=== PATIENT | female | born 1955 | race Caucasian/White ===

== ENCOUNTER → 2017-01-12 | Outpatient (CLI) | payer OTHER ==
[~2017-01-12] MED LIST: CHOL100010 PO; CLON0.5T3 PO; DICL75TA2 PO; FLUO20CA35 PO; FLX10 PO; FRS/40 PO; GLC/500 PO; MECL1TAB42 PO; MOME50SP5; MONT1TAB3 PO; NXM/40 PO; OMEG10007 PO; POTA-327 PO; RANI300T2 PO; RXC5 PO; SUMA25TA12 PO; TIOT1AER INH; TRAM-10 PO; TRAZ100T29 PO
--- NOTE | 2017-01-12 13:55 | DIAGNOSTIC IMAGING REPORT ---
VIDEO SWALLOW HISTORY: DYSPHAGIA, BURPING TECHNIQUE: Video fluoroscopic evaluation of swallowing was performed in the AP and lateral projections by the speech pathology staff. The patient is fed nectar-thick and thin liquid barium, a barium coated wafer, and barium pudding. FLUOROSCOPY TIME: 3.1 minutes. A cine loop submitted. COMPARISON STUDY: None. FINDINGS: There is normal hyoid excursion and epiglottic deflection. No significant penetration or aspiration identified. Swallowing function is within normal limits. However, there is moderate esophageal dysmotility resulting in retrograde flow of barium through the upper esophageal sphincter. IMPRESSION: 1. No aspiration identified. However, there is moderate esophageal dysmotility resulting in an episode of retrograde flow of barium through the upper esophageal sphincter. 2. Please see the speech pathologist report for detailed findings and recommendations. Electronically signed by: Max Fine M.D. 01/12/2017 1:54 PM Dictated Date/Time: 01/12/2017 1:51 PM
--- NOTE | 2017-01-13 15:28 | SWALLOWING EVALUATION ---
HISTORY: This 61 year old woman was referred for a video swallow study at [facility] in order to rule out aspiration and identify the safest consistencies for optimal oral intake. The patient is reporting ongoing coughing, gagging, and at times vomiting or expectorating food and liquids. She reports this has been occurring for ~ a month and a half. It takes her a long time to eat and she eats small frequent meals. She also reports excessing burping while eating. PMH is significant for: DM2, RA, blood clots, ulcers, asthma, COPD, GERD, bipolar depression, migraines, and obesity. She denies weight loss, pneumonia, or medication changes, but had a consistent ongoing dry cough. She reports this as occurring all the time and feels it may be from her saliva. Current diet is described as mainly full liquids with some solids as tolerated such as mashed potatoes. PROCEDURE: The patient was seen in the Radiology Department of [facility] for the VFSS. Cursory examination of the oral cavity revealed natural dentition in good condition. Movement of the articulators was wnl. The patient was seated upright on a stool and was viewed in both the Anterior-Posterior (A-P) and Lateral planes. Volitional phonation exercises completed in the A-P plane revealed bilateral vocal fold movement and vocal intensity was judged to be wnl. In the lateral plane, the patient was given the following boluses: 1 tsp. thin liquid barium x 2, single swallow thin liquid barium self-presented from a cup, serial swallows of thin liquid barium self-presented via straw, 1 tsp. nectar-thick liquid barium, and 1 tsp. barium pudding. The club cracker with barium paste that is typically administered for this study was deferred due to the patient having excessive gagging with increased texture. The patient was then repositioned into the A-P plane and given the following boluses: 1 teaspoon barium pudding and sup sips of thin liquid barium. RESULTS: Oral Stage: Lip closure was adequate as there was no anterior loss. The patient was able to maintain a cohesive liquid bolus upon command without lateral or posterior escape. Mastication was slow. Lingual motion for bolus transport was disorganized. There was trace retention lining the tongue and palate after the swallow. The initiation of the pharyngeal swallow was delayed, and triggered when the bolus head reached the pyriforms. Pharyngeal Stage: Soft palate elevation was complete. Laryngeal elevation revealed complete superior movement of the thyroid cartilage with complete approximation of the arytenoids to the epiglottic base. Anterior hyoid excursion and epiglottic deflection was also complete. Laryngeal vestibular closure was complete. The pharyngeal stripping wave was present and complete. Pharyngeal contraction was also complete. The opening to the pharyngoesophageal segment (PES) was partially reduced, with partial distention and duration of the opening. Tongue base retraction was reduced, with a trace column of contrast being located between the tongue base and pharyngeal wall during the swallow. There was trace retention located along the tongue base, in the valleculae, and pyriforms after the swallow. There was no evidence of laryngeal penetration or aspiration during this study. There were only trace amounts of retention in the pharynx after the swallow was complete as well. Esophageal stage: There was significant mid-distal esophageal retention with retrograde flow through the PES. She required use of a liquid wash multiple times and this was not effective to fully clear the barium. While in the lateral plane, after fluro was turned off, the patient would gag, cough, and expectorate small amounts of barium. This occurred after each presentation but worsened with items of increased viscosity. These finding are suspicious for esophageal dysfunction (to include dysmotility, reflux). SUMMARY/RECOMMENDATIONS: This patient presents mild jovi-pharyngeal dysphagia. She presents with s/s of esophageal dysfunction, which places her at risk for aspiration. The following is recommended: 1. Full liquid diet. 2. Aspiration and GERD precautions, avoid straws. Fully upright for all p.o. intake and for 30-60 minutes after meals. HOB elevated to 30 degrees at all times to include while asleep. 3. Safe swallow strategies: Small sips. Rest breaks. Small frequent meals. 4. Follow up with GI due to esophageal dysfunction. Patient reports that she has an appointment for endoscopy within the next month. Modify reflux medications as needed/appropriate. A summary of the results and recommendations was discussed with the patient immediately following the study with verbal understanding. She is already eating small frequent meals and avoids straw use. She takes reflux medications and feels as though these assist. The patient reported she felt the most comfortable with drinking liquids and that these caused her the least amount of difficulty. She was educated that should these symptoms worsen prior to her endoscopy, it would be prudent for her to go to the ED for immediate assessment and assistance. She was in agreement. Thank you for referral of this patient. Please contact me at if any additional information is needed.
== END | disposition home or self-care (01) ==
LOC: C.RAD 12:21
PROVIDERS: ATTEND Nurse Practitioner Family
DX: R13.10 Dysphagia, unspecified (principal); R14.2 Eructation; K22.4 Dyskinesia of esophagus

== ENCOUNTER → 2017-04-25 | Outpatient (CLI) | payer OTHER ==
--- NOTE | 2017-04-25 18:08 | DIAGNOSTIC IMAGING REPORT ---
KUB HISTORY: Generalized abdominal pain. COMPARISON: None. FINDINGS: The bowel gas pattern is unremarkable. There are no dilated loops of small bowel to suggest an obstruction. No renal calculi. No ureteral calculi. No pneumoperitoneum or pneumatosis. L4-S1 posterior decompression and fusion with pedicle screws and rods. The hardware is intact. Round calcifications in the deep pelvis are nonspecific but likely represent phleboliths. IMPRESSION: No renal or ureteral stones. No evidence for bowel obstruction. Electronically signed by: Max Fine M.D. 04/25/2017 6:07 PM Dictated Date/Time: 04/25/2017 6:05 PM
== END | disposition home or self-care (01) ==
LOC: C.RAD 16:31
PROVIDERS: ATTEND Nurse Practitioner Family
DX: R10.84 Generalized abdominal pain (principal); R19.7 Diarrhea, unspecified

== ENCOUNTER → 2017-04-28 | Outpatient (CLI) | payer OTHER ==
[~2017-04-28] MED LIST changes: +OPTIRAY 320 IV PRN
== END | disposition home or self-care (01) ==
LOC: C.CTS 10:35
PROVIDERS: ATTEND Nurse Practitioner Family
DX: R10.84 Generalized abdominal pain (principal); R10.32 Left lower quadrant pain; R19.7 Diarrhea, unspecified

== ENCOUNTER → 2017-05-04 | Outpatient (CLI) | payer OTHER ==
--- NOTE | 2017-05-04 10:11 | DIAGNOSTIC IMAGING REPORT ---
CT OF THE ABDOMEN AND PELVIS WITH CONTRAST CLINICAL HISTORY: Left lower quadrant abdominal pain. Diarrhea. COMPARISON STUDY: KUB April 25, 2017. TECHNIQUE: Following IV administration of 92 mL of Optiray-320, axial images of the abdomen and pelvis were obtained from the lung bases to the proximal femurs. Images were reviewed in the axial, sagittal, and coronal planes. IV contrast was administered without complication. A dose lowering technique was utilized adhering to the principles of ALARA. Oral contrast was administered. CT DOSE: 1423.69 mGy.cm FINDINGS: Lung bases are clear. There is probable fatty infiltration of the liver. The spleen, adrenal glands, kidneys and pancreas are normal. There is no biliary or pancreatic ductal dilatation. No peripancreatic infiltration. The gallbladder is surgically absent. There is no evidence for a bowel obstruction. This extensive diverticulosis of the descending colon and sigmoid colon. There is probable minimal infiltration along the posterior aspect of the distal descending colon with mild colonic wall thickening. The findings suggest mild acute diverticulitis. There is no free air or abscess. No lymphadenopathy is present. No suspicious skeletal lesions are present. There are postoperative findings within the lumbosacral spine. IMPRESSION: 1. Extensive diverticulosis of the descending colon and sigmoid colon with minimal infiltration along the posterior aspect of the distal descending colon which suggests mild acute diverticulitis. No free air or abscess. 2. Fatty infiltration of the liver. 3. No biliary ductal dilatation status post cholecystectomy. Electronically signed by: Niitn Orona M.D. 05/04/2017 10:09 AM Dictated Date/Time: 05/04/2017 9:58 AM
== END | disposition home or self-care (01) ==
LOC: C.CTS 09:25
PROVIDERS: ATTEND Nurse Practitioner Family
DX: R10.84 Generalized abdominal pain (principal); R10.32 Left lower quadrant pain; R19.7 Diarrhea, unspecified; Z98.890 Other specified postprocedural states; K57.30 Diverticulosis of large intestine without perforation or abscess without bleeding; K76.0 Fatty (change of) liver, not elsewhere classified

== ENCOUNTER 2017-11-07 08:38 | Emergency (ER) | payer OTHER ==
[~2017-11-07] VITALS: Ht 154.9 cm; Wt 91.0 kg
[~2017-11-07 08:38] MED LIST changes: -OPTIRAY 320 IV PRN
[2017-11-07 08:42] VITALS: TEMP 36.7; Ht 154.9 cm; Wt 91.0 kg
[2017-11-07] MEDS ORDERED: PSEUDOEPHEDRINE HCL 30 MG TAB PO STA (08:58)
[2017-11-07] MEDS ORDERED: SODIUM CHLORIDE 0.9% 1000ML 1,000 ML IV STA (08:58)
[2017-11-07] MEDS ORDERED: ONDANSETRON INJ 2 MG/ML 2 ML VIAL IV STA (08:58)
[2017-11-07] MEDS ORDERED: ALBUT/IPRATROP 3MG/0.5MG NEB 3 ML VIAL INH STA (08:58)
[2017-11-07] MEDS ORDERED: KETOROLAC TROMETHAMINE 30 MG/ML VIAL IV STA (08:58)
[2017-11-07] MEDS ORDERED: BENZONATATE 100MG CAP PO ONE (09:00)
[2017-11-07 09:35] LABS: INFLUENZA B ANTIGEN POS for Influ B (NEG)
[2017-11-07 09:35] LABS: BASO % 0.4 %; BASO ABS # 0.02 K/uL (0-0.2); EOS % 1.6 %; EOS ABS # 0.08 K/uL (0-0.5); HEMATOCRIT 38.4 % (37-47); HEMOGLOBIN 13.1 g/dL (12.0-16.0); IG# 0.01 K/uL (0.00-0.02); LYMPH ABS # 2.16 K/uL (1.2-3.4); MEAN CELL VOLUME 87.7 fL (80-100); MEAN CORPUSCULAR HEMOGLOBIN 29.9 pg (25-34); MEAN CORPUSCULAR HGB CONC 34.1 g/dl (32-36); MEAN PLATELET VOLUME 9.2 fL (7.4-10.4); MONO % 9.8 %; MONO ABS # 0.48 K/uL (0.11-0.59); NEUT ABS # 2.16 K/uL (1.4-6.5); PLATELET COUNT 214 K/uL (130-400); RED CELL DISTRIBUTION WIDTH CV 15.4 % (11.5-14.5); RED CELL DISTRIBUTION WIDTH SD 49.9 fL (36.4-46.3); WHITE BLOOD COUNT 4.91 K/uL (4.8-10.8)
[2017-11-07 09:43] LABS: INR 0.9 (0.9-1.1); PTT PATIENT 29.3 SECONDS (21.0-31.0)
[2017-11-07 09:58] LABS: ALBUMIN 3.6 gm/dl (3.4-5.0); CALCIUM 8.7 mg/dl (8.5-10.1); CREATININE 0.77 mg/dl (0.60-1.20); POTASSIUM 3.5 mmol/L (3.5-5.1)
--- NOTE | 2017-11-07 10:06 | DIAGNOSTIC IMAGING REPORT ---
CHEST 2 VIEWS ROUTINE HISTORY: 62 years-old Female EVALUATE RESPIRATORY DISTRESS.DYSPNEA acute respiratory distress COMPARISON: Chest radiographs 05/10/2016 TECHNIQUE: PA and lateral views of the chest FINDINGS: Cardiomediastinal and hilar silhouettes are within normal limits. There is no pneumothorax, pleural effusion, focal airspace consolidation or overt pulmonary edema. The bones of the chest appear grossly intact. Orthopedic hardware of the lower cervical spine is noted. Degenerative changes are noted about the shoulders and spine. IMPRESSION: No acute process. The above report was generated using voice recognition software. It may contain grammatical, syntax or spelling errors. Electronically signed by: Jaylen Wharton M.D. 11/07/2017 10:05 AM Dictated Date/Time: 11/07/2017 10:03 AM
[2017-11-07 10:09] LABS: CKMB 0.6 ng/ml (0.5-3.6); TOTAL PROTEIN 7.3 gm/dl (6.4-8.2)
[2017-11-07] MEDS ORDERED: CHOL100041 PO (10:20)
[2017-11-07] MEDS ORDERED: MOME6000 (10:20)
[2017-11-07] MEDS ORDERED: POTA10TA PO (10:20)
[2017-11-07] MEDS ORDERED: BACL10TA PO (10:21)
[2017-11-07] MEDS ORDERED: MIRT15TA PO (10:21)
[2017-11-07] MEDS ORDERED: OSELTAMIVIR PHOSPHATE 75 MG CAP PO STA (11:42)
[2017-11-07] MEDS ORDERED: OSEL45CA PO (11:46)
[2017-11-07] MEDS ORDERED: BENZ100C18 PO (11:46)
[2017-11-07] MEDS ORDERED: VNTHFA/IN INH (11:46)
[2017-11-07 11:57] VITALS: BP 160/94; PULSE 89; O2SAT 94
--- NOTE | 2017-11-07 15:14 | EMERGENCY ROOM VISIT NOTE ---
ED Visit Note First contact with patient: 08:48 Chief Complaint: Flulike symptoms. History of Present Illness: Ms. Lindquist is a 62-year-old white female who ambulates into the ED accompanied by a male friend with complaints of flulike symptoms. Historically patient reports she has a history of asthma, bronchitis and lower extremity DVTs. She does report she had an influenza vaccination this year. Patient reports her symptoms started approximately 4 days ago with a productive cough of clear sputum that is intermittently yellow in color. She then reports she started experiencing a bifrontal headache, bilateral lateral rib pain, nasal congestion, body aches and generalized fatigue. Over the last 3 days her symptoms have been constant and she feels like they are getting worse. Currently she describes her bifrontal headache initially as a burning sensation and now it is a throbbing sensation. She rates her discomfort 5/10. Her pain is nonradiating. Her pain worsens with cough. She has not identified any alleviating factors related to the pain. She has been using axok-lhx-xmcqczl medications without relief of her discomfort. Additionally associated symptoms was bilateral ear pain that has subsequently resolved, intermittent wheezing predominantly with cough, exertional dyspnea, left lower leg cramping, decreased appetite and sore throat. She denies dizziness, lightheadedness, hearing changes, ear drainage, voice changes, painful talking, drooling, inability to swallow, neck pain/stiffness, hemoptysis, anterior chest pain, palpitations, abdominal pain, nausea, vomiting , recent travel/inactivity/surgery, extremity weakness/numbness/tingling. Review of Systems: As noted above in history of present illness. All body systems were reviewed and found to be negative as noted above. Past Medical History: As previously noted, diabetes, gastric ulcers, multiple orthopedic surgeries, D&C, hysterectomy. Current Medications: Medications Dose Route/Sig Max Daily Dose Days Date Category Dose Instructions Remeron (Mirtazapine) 15 Mg Tab 15 Mg PO HS 11/07/17 Reported Lioresal (Baclofen) 10 Mg Tab 10 Mg PO TID PRN 11/07/17 Reported Mometasone Furoate (Mometasone Furoate (Nasal)) 50 Mcg/Act Spr 1-2 Sprays NA PRN 11/07/17 Reported D 1000 (Cholecalciferol) 1,000 Unit Cap 1,000 Units PO QAM 11/07/17 Reported K-Tabs (Potassium Chloride) 10 Meq Tab 10 Meq PO QAM 11/07/17 Reported Oxycodone HCl 5 Mg Tab 5-10 Mg PO Q4H PRN 05/22/16 Rx Stiolto Respimat 2.5-2.5 Mcg/Act (Tiotropium Barre-Olodaterol) 1 Aer Aer 1 [place] INH BID PRN 05/10/16 Reported [place]-3 (Fish Oil) 1 Ea Cap 1 Cap PO QAM 05/10/16 Reported Ultram (Tramadol HCl) 50 Mg Tab 50 Mg PO Q8H PRN 05/10/16 Reported Meclizine Hcl 25 Mg Tab 1 Tab PO UD PRN 10 05/10/16 Reported TAKES HS ALWAYS Prozac (Fluoxetine HCl) 20 Mg Cap 20 Mg PO QAM 05/10/16 Reported Trazodone (Trazodone HCl) 100 Mg Tab 100 Mg PO HS 05/10/16 Reported Klonopin (Clonazepam) 0.5 Mg Tab 0.5 Mg PO BID 05/10/16 Reported Nexium (Esomeprazole Magnesium) 40 Mg Capcr 40 Mg PO QAM 05/10/16 Reported Glucophage (Metformin Hcl) 500 Mg Tab 500 Mg PO BID 05/16/14 Reported Singulair (Montelukast Sodium) 10 Mg Tab 10 Mg PO QPM 05/16/14 Reported Zantac (Ranitidine HCl) 300 Mg Tab 300 Mg PO QPM 11/01/11 Reported Voltaren (Diclofenac Sodium) 75 Mg Tab 75 Mg PO BID 11/01/11 Reported TAKE WITH FOOD Lasix (Furosemide) 40 Mg Tab 40 Mg PO Q2D 11/01/11 Reported AM Imitrex (Sumatriptan Succinate) 25 Mg Tab 2 Tablets PO AT ONSET OF MIGRAINE 11/01/11 Reported Allergies to Medications: Cephalosporin, fentanyl, methylprednisone Social History: Patient is not employed; she feels safe in her home environment ; she denies tobacco and alcohol use. Physical Examination: Vital Signs: Date Time Temp Pulse Resp B/P (MAP) Pulse Ox O2 Delivery O2 Flow Rate FiO2 11/07/17 11:57 89 24 160/94 94 11/07/17 11:31 160/94 11/07/17 11:30 86 21 93 Room Air 11/07/17 11:01 123/89 11/07/17 11:00 82 20 90 Room Air 11/07/17 10:55 82 26 150/93 97 Room Air 11/07/17 09:44 92 18 129/82 96 Room Air 11/07/17 09:25 81 11/07/17 08:42 36.7 99 18 137/99 96 Room Air GENERAL: 62-year-old female in mild to moderate distress due to symptoms, nontoxic-appearing, afebrile and hemodynamically stable. NEUROLOGICAL: Awake, alert and oriented to person, place and time. Answering questions appropriately and following commands. Normal gait. Good hand eye coordination. SKIN: Warm, dry and pink. No soft tissue eruptions or trauma noted. HEENT: Atraumatic and normocephalic. No erythema or tenderness over the frontal or maxillary sinuses. External ears are nontender. Auditory canals are pink and patent. Tympanic membranes are not erythematous or edematous. PERRLA. Sclera white and conjunctiva pink without drainage. No drainage from naris with audible congestion. Oral cavity moist and pink. Uvula is midline and no abscesses are seen. Pharynx is moderately erythematous and mildly edematous. No tonsillar hypertrophy or exudates. Speech normal and clear. No lymphadenopathy. Trachea midline. No jugular venous distention. No laryngeal tenderness. No carotid bruits. BACK: No tenderness over the bony spine. No nuchal rigidity or meningismus. Full range of motion of the cervical spine. No CVA tenderness. THORAX: Lungs sounds are clear but decreased in all lung hodges bilaterally to auscultation and equal bilaterally with symmetrical chest wall. No wheezing, rales or rhonchi. Mild tenderness over the bilateral ribs without bony deformity, bony crepitus, swelling, ecchymosis or subcutaneous air. No increased respiratory effort or rate. HEART: Regular rate and rhythm. No gallops, rubs or murmurs are appreciated. PMI is not displaced. No lifts, heaves or thrills. ABDOMEN: Obese, soft and nontender. Positive bowel sounds in all quadrants. No guarding, rigidity or organomegaly. EXTREMITIES: Moves all extremities well on command and with purpose. All distal neurovascular statuses are intact and equal bilaterally. Mild bilateral dependent edema. No calf tenderness or cords. ED Course: Patient is assessed as noted above. Patient's medication list was reviewed. Laboratory Testing: Test 11/07/17 09:03 11/07/17 09:16 11/07/17 09:20 11/07/17 10:30 Range/Units Influenza Type A Antigen Neg for Influ A NEG Influenza Type B Antigen POS for Influ B NEG White Blood Count 4.91 4.8-10.8 K/uL Red Blood Count 4.38 4.2-5.4 M/uL Hemoglobin 13.1 12.0-16.0 g/dL Hematocrit 38.4 37-47 % Mean Corpuscular Volume 87.7 80-100 fL Mean Corpuscular Hemoglobin 29.9 25-34 pg Mean Corpuscular Hemoglobin Concent 34.1 32-36 g/dl Platelet Count 214 130-400 K/uL Mean Platelet Volume 9.2 7.4-10.4 fL Neutrophils (%) (Auto) 44.0 % Lymphocytes (%) (Auto) 44.0 % Monocytes (%) (Auto) 9.8 % Eosinophils (%) (Auto) 1.6 % Basophils (%) (Auto) 0.4 % Neutrophils # (Auto) 2.16 1.4-6.5 K/uL Lymphocytes # (Auto) 2.16 1.2-3.4 K/uL Monocytes # (Auto) 0.48 0.11-0.59 K/uL Eosinophils # (Auto) 0.08 0-0.5 K/uL Basophils # (Auto) 0.02 0-0.2 K/uL RDW Standard Deviation 49.9 36.4-46.3 fL RDW Coefficient of Variation 15.4 11.5-14.5 % Immature Granulocyte % (Auto) 0.2 % Immature Granulocyte # (Auto) 0.01 0.00-0.02 K/uL Prothrombin Time 9.6 9.0-12.0 SECONDS Prothromb Time International Ratio 0.9 0.9-1.1 Activated Partial Thromboplast Time 29.3 21.0-31.0 SECONDS Partial Thromboplastin Ratio 1.1 D-Dimer 390 0-500 ug/L FEU Sodium Level 139 136-145 mmol/L Potassium Level 3.5 3.5-5.1 mmol/L Chloride Level 109 98-107 mmol/L Carbon Dioxide Level 22 21-32 mmol/L Anion Gap 8.0 3-11 mmol/L Blood Urea Nitrogen 9 7-18 mg/dl Creatinine 0.77 0.60-1.20 mg/dl Est Creatinine Clear Calc Drug Dose 78.8 ml/min Estimated GFR () 96.6 Estimated GFR (Non- 83.3 BUN/Creatinine Ratio 11.2 10-20 Random Glucose 118 70-99 mg/dl Calcium Level 8.7 8.5-10.1 mg/dl Total Bilirubin 0.3 0.2-1 mg/dl Aspartate Amino Transf (AST/SGOT) 12 15-37 U/L Alanine Aminotransferase (ALT/SGPT) 19 12-78 U/L Alkaline Phosphatase 85 45-117 U/L Total Creatine Kinase 71 26-192 U/L Creatine Kinase MB 0.6 0.5-3.6 ng/ml Creatine Kinase MB Ratio 0.8 0-3.0 Troponin I < 0.015 0-0.045 ng/ml Total Protein 7.3 6.4-8.2 gm/dl Albumin 3.6 3.4-5.0 gm/dl Globulin 3.7 2.5-4.0 gm/dl Albumin/Globulin Ratio 1.0 0.9-2 Bedside Troponin I < 0.030 0-0.045 ng/ml Urine Color YELLOW Urine Appearance CLEAR CLEAR Urine pH 7.0 4.5-7.5 Urine Specific [place] 1.010 1.000-1.030 Urine Protein NEG NEG Urine Glucose (UA) NEG NEG Urine Ketones NEG NEG Urine Occult Blood NEG NEG Urine Nitrite NEG NEG Urine Bilirubin NEG NEG Urine Urobilinogen NEG NEG Urine Leukocyte Esterase TRACE NEG Urine WBC (Auto) 1-5 0-5 /hpf Urine RBC (Auto) 0-4 0-4 /hpf Urine Hyaline Casts (Auto) 1-5 0-5 /lpf Urine Epithelial Cells (Auto) 20-30 0-5 /lpf Urine Bacteria (Auto) NEG NEG Group A Streptococcus Screen: Negative. Culture pending. Chest X-Rays: Were read by myself and the radiologist showing no acute infiltrates, effusions or pneumothorax. Normal heart silhouette and bony anatomy. EKG: Was read by myself and reviewed with Dr. Diane; shows normal sinus rhythm with a ventricular rate of 82 bpm. Normal axis, intervals and complexes. Nonspecific T changes. No evidence of acute injury, ischemia or infarction. Medical records were reviewed and there was no additional EKGs on file for comparison. Patient was hydrated with normal saline and received an albuterol/Atrovent nebulizer breathing treatment, 4 mg of Zofran for posttussive nausea, 200 mg of Tessalon Perles by mouth for cough, 60 mg a pseudoephedrine by mouth for congestion, 30 mg of Toradol IV for generalized pain and 75 mg of Tamiflu by mouth for influenza. Patient was reassessed multiple times during her stay in the emergency department. On reevaluation's of her lungs she had improved air movement in all hodges and continue to have no wheezing, rales or rhonchi. Patient's case was reviewed with Dr. Diane; we agreed on diagnostic approach, treatment, disposition and plan. Patient was educated about today's findings and instructed on her treatment plan ; she verbalized understanding and agreement with this plan. Clinical Impression: Influenza B. Decision-Making: Initially my differential diagnosis I considered influenza, pneumonia, pulmonary embolism, acute bronchitis, acute coronary syndrome, pleuritis and other causes. Disposition: Patient discharged home in stable condition accompanied by female friend; prior to departure she was reassessed and subjectively reported she was feeling much better and reported that she was pain-free but was still having her cough. Plan: Patient was prescribed Tamiflu 2 times a day for total of 5 days. Patient was prescribed Tessalon Perles every 6 hours as needed for cough. Patient was prescribed an albuterol inhaler with spacer and encouraged to use 2 puffs every 6 hours for 5 days and as needed for severe coughing episodes, shortness of breath/wheezing. Patient was encouraged to stay well-hydrated, elevate the head of her bed and had a humidifier to her bedroom during sleep. Patient was encouraged to follow-up with her PCP for recheck in 2-3 days. Patient is encouraged to return the ED for worsening cough, coughing up blood, uncontrolled fevers, uncontrolled shortness of breath/wheezing or any new/ concerning symptoms.
== END 2017-11-07 11:57 | disposition home or self-care (01) ==
LOC: C.EDB 08:41
DX: J10.1 Influenza due to other identified influenza virus with other respiratory manifestations (principal); E11.9 Type 2 diabetes mellitus without complications; K25.9 Gastric ulcer, unspecified as acute or chronic, without hemorrhage or perforation; Z88.1 Allergy status to other antibiotic agents; Z88.5 Allergy status to narcotic agent; Z88.8 Allergy status to other drugs, medicaments and biological substances

== ENCOUNTER 2021-08-31 12:05 | Inpatient (IN) ==
[2021-08-31] MEDS ORDERED: HYDROmorphone INJ 0.5 MG/0.5 ML SYR IV PRN (12:49)
[2021-08-31] MEDS ORDERED: SODIUM CHLORIDE 0.9% 1000ML 1,000 ML IV SCH ×2 (13:00→19:32)
[2021-08-31 13:07] LABS: Basophils # (auto) 0.03 K/uL (0-0.2); Basophils % (auto) 0.3 %; Hematocrit (blood only) 29.2 % (37-47); Hemoglobin 9.4 g/dL (12.0-16.0); Immature Granulocytes # (auto) 0.04 K/uL (0.00-0.02); Immature Granulocytes % (auto) 0.4 %; Lymphocytes # (auto) 1.71 K/uL (1.2-3.4); Lymphocytes % (auto) 17.6 %; Mean Corpuscular Hemoglobin 26.9 pg (25-34); Mean Corpuscular Hgb Conc 32.2 g/dL (32-36); Mean Corpuscular Volume 83.7 fL (80-100); Mean Platelet Volume 9.1 fL (7.4-10.4); Monocytes # (auto) 0.77 K/uL (0.11-0.59); Monocytes % (auto) 7.9 %; Neutrophils # (auto) 7.05 K/uL (1.4-6.5); Neutrophils % (auto) 72.8 %; Platelet Count 254 K/uL (130-400); RDW Coefficient of Variation 16.7 % (11.5-14.5); RDW Standard Deviation 50.7 fL (36.4-46.3); Red Blood Count 3.49 M/uL (4.2-5.4)
[2021-08-31 13:17] LABS: Partial Thromboplastin Time 25.4 Seconds (21.0-31.0); Prothrombin Time 9.8 Seconds (9.0-12.0)
[2021-08-31 13:35] LABS: Albumin Level 3.1 gm/dl (3.4-5.0); BUN Creatinine Ratio 14.6 (10-20); Calcium 8.7 mg/dl (8.5-10.1); Creatinine Clr Calc Pharmacy 93.7 ml/min; Est GFR (African American) 98.5 ml/min
[2021-08-31 13:37] LABS: Albumin Globulin Ratio 0.8 (0.9-2); Globulin 3.9 gm/dl (2.5-4.0)
[2021-08-31 13:48] LABS: Bilirubin,Total 0.4 mg/dl (0.2-1)
--- NOTE | 2021-08-31 13:48 | History & Physical Report ---
Date of Service August 31, 2021 Assessment & Plan (1) Tibial plateau fracture, left: Plan: Due to the patient's clinical presentation and imaging she will be admitted to the hospital proceeding as follows: Analgesics will be provided Orthopedics will be consulted for necessary intervention for her left knee fracture. The treating emergency room physician is already discussed with Dr. Jerry Perez who will see the patient in consultation. Further recommendations concerning this fracture will be at the discretion of the orthopedic surgeon We will utilize SCDs for DVT prevention. We will plan on initiating chemical means once surgical intervention is completed. I discussed CODE STATUS with the patient and she notes an event of cardiopulmonary rest to be a level 1 full code (2) Diabetes: Plan: We will get a glycemic consultation as the patient's Metformin will likely need to be held in anticipation of surgery History of Present Illness Chief Complaint: "I recently fell and having difficulty taking care of myself due to severe pain in my left knee" Primary Care Provider: NO PCP This is a 66-year-old female who presented to [facility] on 1225 after suffering a fall. Patient says that she was in [employer] when she tripped on a rug in the store. When the patient fell she struck her head as well as bend her left knee in an awkward position. She said that she did not lose consciousness. Following her fall she did not have any blurred vision or double vision. She also denies any nausea vomiting or abdominal pain. I questioned her about events preceding the fall and she specifically notes she merely tripped on a rug and did not experience any preceding chest pain, shortness of breath, lightheadedness, or syncopal episodes. After suffering a fall in addition to a slight headache the patient noted severe pain in her left knee so she presented to the [facility] emergency department on 08/29/2021.During her visit at the emergency department on 1225 she did und ergo a CT scan of the head that showed no acute intracranial pathology specifically no fractures or intracranial bleed. The patient had an x-ray of her left knee that showed evidence of an impacted tibial plateau fracture. There is also an intra-articular effusion noted. A chest x-ray was performed that showed no evidence of pneumonia, CHF, or rib fractures. Labs during this visit include a CBC her white blood cell count and platelet count both noted to be normal. Her hemoglobin and hematocrit were 11.5 and 35.7. Chemistry profile at that time showed sodium and potassium were both normal as were her BUN and creatinine. Patient also had an EKG that showed normal sinus rhythm with nonspecific T wave abnormalities but no changes indicative of acute ischemia were noted. The patient was ultimately discharged to home from the emergency department with a knee brace in place as well as a walker to aid with ambulatory needs. Patient represented back to [facility] today secondary to continued pain in her left knee that she describes as severe. She says that the pain is nearly constant and is exacerbated by almost any movement of this extremity. She also notes that since she cannot bear weight on this leg her right leg is increasingly sore and fatigued as she is having to ambulate with a walker. Currently the patient denies any chest pain or shortness of breath. She denies any headache or visual changes. She also denies any fever shakes or chills. Because of her ongoing symptomatology and her difficulty caring for self admission to the hospital has been requested. It is noteworthy mention that the patient has had bilateral knee replacements. She says that her knee replacements performed in 2015 and 2016, most recently by Dr. Jerry Perez of [facility] physician with orthopedics. Today in the emergency department the patient has not had any additional imaging. She did have a repeat CBC that showed white blood cell count and platelet count remain normal. Her hemoglobin and hematocrit are 9.4 and 29.2. Coagulation studies were checked and are all within normal limits. Chemistry profile showed sodium, potassium, BUN, and creatinine remained within the normal limits. A Covid test has been performed and is pending. I did question the patient that her functional status prior to this fall. Patient reports living in a one-story home so she does not really go up and down steps but notes that she can walk comfortably on a flat surface without any chest pain or shortness of breath. She says she sometimes walks between a quarter and 1/2 mile to get her mail each day and feels prior to her knee injury was able to do this without any difficulty. She does report smoking 1/2 pack cigarettes a day for several years but quit 6 to 7 years ago. She did have 2 sisters at both suffered heart attacks in their late 50s and early 60s. She reports having a stress test "years ago" and to the best of her knowledge was unremarkable for ischemia. In addition the patient reports that she is a diabetic for which she takes oral medicine. I asked the patient about her COVID-19 status and she said that she did receive the [employer] vaccine approximately 2 months ago. At the time of my visit with the patient she was resting comfortably in bed and was in no distress. Allergies Allergy/AdvReac Type Severity Reaction Status Date / Time fentanyl Allergy Severe RASH Verified 08/31/21 13:28 Cephalosporins Allergy Mild RASH TO Verified 08/31/21 13:28 KEFLEX grass pollen Allergy Sneezing Verified 08/31/21 13:28 tree and shrub pollen Allergy Sneezing Verified 08/31/21 13:28 methylprednisolone AdvReac Intermediate DIZZY;RAPID Verified 08/31/21 13:28 HEART RATE Home Medications Medication Instructions Recorded Confirmed Type clonazepam 0.5 mg tablet 0.5 mg PO TID 08/14/18 08/31/21 History esomeprazole magnesium 40 mg 40 mg PO QAM 08/14/18 08/31/21 History capsule,delayed release furosemide 40 mg tablet 40 mg PO DAILY PRN 08/14/18 08/31/21 History metformin 500 mg tablet 500 mg PO BID 08/14/18 08/31/21 History montelukast 10 mg tablet 10 mg PO HS PRN 08/14/18 08/31/21 History baclofen 10 mg tablet 10 mg PO Q8H PRN #10 tab 01/29/21 08/31/21 Rx fluoxetine 40 mg capsule 40 mg PO DAILY 08/29/21 08/31/21 History hydrocodone 5 mg-acetaminophen 325 1 tab PO Q6H PRN #30 tab 08/29/21 08/31/21 Rx mg tablet hydroxyzine HCl 25 mg tablet 25 mg PO BID 08/29/21 08/31/21 History lamotrigine 200 mg tablet 300 mg PO QPM 08/29/21 08/31/21 History mirtazapine 15 mg tablet 15 mg PO HS 08/29/21 08/31/21 History Past Med/Surg History Medical History Anxiety Asthma Bipolar disorder Chronic back pain Depression Diabetes Heart disease Lumbar stenosis (05/27/14) Migraine Osteoarthritis, knee Surgical History History of back surgery History of cervical spinal arthrodesis History of cholecystectomy History of hysterectomy History of lumbar fusion History of shoulder surgery Left History of total knee arthroplasty Family History Father Hypertension Sister Cancer Other Asthma Heart disease No family history of adverse response to anesthesia No family history of bleeding disorder Social History Smoking Status: Never smoker Hx Alcohol Use: No Hx Substance Use: No Preferred Language: [place] Feels Safe at Home: Yes Review of Systems Constitutional: no fever and no chills Eyes: no blind spots and no diplopia Ear, Nose, Mouth, Throat: no ear pain and no sore throat Respiratory: no cough and no dyspnea Cardiovascular: no chest pain Gastrointestinal: no abdominal pain, no nausea and no vomiting Genitourinary: no dysuria Musculoskeletal: no back pain Integumentary: no rash Neurologic: no localized weakness Physical Exam Constitutional: well developed, well nourished and + obese; no acute distress Eyes: no conjunctival abnormality ENMT: Ears: no hearing impairment Neck: trachea midline Respiratory: normal respiratory effort, lungs clear to auscultation Cardiovascular: Rate/Rhythm: regular rate and regular rhythm Vessels: dorsalis pedis pulses present and radial pulses present Gastrointestinal (Abdomen): Soft, nontender, nondistended Musculoskeletal: Left knee is immobilized in a brace. Patient is able to dorsiflex and plantar flex both feet without limitations. Skin: no rashes Neurologic: moves all extremities Psychiatric: A+Ox3, euthymic affect Results & Data Results & Data ([facility]) Vital Signs (Past 12 Hours) Vital Signs Temp Pulse Pulse Resp BP BP Pulse Ox 08/31/21 12:12 88 20 147/79 H 97 08/31/21 12:09 37.0 C 90 20 147/79 H 96 Supervising Physician Co-Signing Physician Notes Patient seen and examined, chart reviewed, case discussed with Jackson Parker PA-C and I agree with the assessment and plan as above except as otherwise noted General: A&Ox3. NAD. Cooperative. HEENT: Atraumatic, normocephalic. Visual acuity/hearing intact Pulm: CTAB A&P. -wheezes, -rales, -rhonchi. Symmetrical chest rise. No increase work of breathing. No respiratory distress. Cardiac: RRR, -mrg. Radial pulses intact and symmetrical. Abdominal: Nontender Ext: L leg in soft brace. Sensation to soft touch and temp intact in feet bilaterally without asymmetry, ankle dorsiflexion/plantarflexion 5/5 bilaterally. PT pulse intact bilaterally. Tibial plateau fracture with ambulatory dysfunction, Dr. Perez aware. Pending orthopedic evaluation. Neurovascularly intact. Hgb stable, no signs of active bleeding. Home metformin held. VSS. PG Care Time/CCT Total # of Minutes Spent Total Time Spent with Patient: Total time spent is greater than 50% in coordination of care (as documented) at patient's floor/unit and/or counseling patient: Coding Level of Care Code 45852 Initial Inpt Care Lvl 3 Diagnoses Tibial plateau fracture, left S82.142A Encounter type: initial encounter Fracture type: closed Diabetes E11.9 (1) Tibial plateau fracture, left Encounter type: initial encounter Fracture type: closed Qualified Code(s): S82.142A - Displaced bicondylar fracture of left tibia, initial encounter for closed fracture
[2021-08-31] MEDS ORDERED: ACETAMINOPHEN 1,000 MG/100 ML VIAL IV PRN (13:52)
[2021-08-31] MEDS ORDERED: PHARMACY GLYCEMIC MGMT CONSULT PRN (13:52)
[2021-08-31] MEDS ORDERED: ONDANSETRON INJ 2 MG/ML 2 ML VIAL IV PRN (13:52)
--- NOTE | 2021-08-31 14:07 | XRay Report ---
XR hip LT min 2V CLINICAL HISTORY: fall two days ago. With continued left hip pain. Patient has tibial plateau fx on left knee radiographs. COMPARISON STUDY: No previous studies for comparison. TECHNIQUE: 2 left hip views FINDINGS: Bones: There is no evidence for an acute fracture or dislocation. There is no lytic or blastic lesion . Joints: The joint spaces are maintained. The bones are in anatomic alignment. Soft tissues: There is no focal soft tissue abnormality. There is no radiopaque foreign body. IMPRESSION: No acute osseous pathology. ACT 112: Negative or not required by law. Electronically signed by: Jose Patel M.D. 08/31/2021 2:06 PM
--- NOTE | 2021-08-31 14:28 | Emergency Department Note ---
Impression & Plan Tibial plateau fracture, left ED Provider Note INFORMANT: Patient ED PROVIDER(S): Kyle Koch MD CHIEF COMPLAINT: Left leg pain PLAN: Disposition: Admitted Condition: Good Outpatient prescription management: none Referral: None MEDICAL DECISION MAKING: Patient presented to the emergency department because of left leg pain and previous diagnosis of left tibial plateau fracture. She was not able to do well at home and under the circumstances a consultation was placed with orthopedics. I discussed the case with Dr. Perez who did the replacement on her other knee. We reviewed the findings and felt that admission for formal consultation in the hospital was most appropriate as the patient is not doing well at home. She was given IV Dilaudid for symptom control. I did request old records from the [facility] about her knee replacement that was involved in this fracture. Laboratory testing reveals patient does have a mild anemia. No leukocytosis. Consultation was made with the internal medicine service. The patient was evaluated in the ER and admitted for further management. Triage Nursing notes reviewed and agree them. Vital Signs: reviewed and remarkable for no significant abnormalities Differential diagnosis: Fracture, subluxation, dislocation, contusion, ligamentous injury, neurovascular, compartment syndrome, rhabdomyolysis, as well as other pathologies. Diagnostics interpreted by me: ECG: none Cardiac Monitoring: none Imaging studies: I did review the x-rays from the prior ED visit. There is a subtle depressed tibial plateau fracture noted. X-ray imaging of the left hip is negative for fracture dislocation. HPI: The patient is a 66year old female who presents to the Emergency Room by ambulance with complaints of continued left knee pain. This started after a fall 2 days ago and is resulting from a tibial plateau fracture. The patient has bilateral knee replacements. She fell onto her left side. A work-up in the ER did not reveal any other problems except for a mildly depressed left tibial plateau fracture below the inferior segment of the hardware. The patient also notes the following associated symptoms, difficulty ambulating. The patient has been using her knee immobilizer, walker, and pain medication for relieving factors. Current pain is rated as an 8/10. Patient was to see orthopedics today but with the significant difficulty getting around and pain she called an ambulance to come back to the ER. Labs reviewed the patient does note some mild discomfort in the left hip since the fall. She does have chronic back pain. No changes there. Pt denies LOC, headache, fevers, chills, diaphoresis, visual changes, neck pain, chest pain, breathing difficulties, nausea, vomiting, abdominal pain, new back pain, melena, hematochezia, urinary symptoms, numbness, weakness, lymphadenopathy, rash, or other complaints. ROS: See above HPI for pertinent positives & negatives. A total of 10 systems reviewed and were otherwise negative. PAST MEDICAL HISTORY:See Below , hypertension PAST SURGICAL HISTORY:See Below, bilateral total knee replacement FAMILY HISTORY:See Below SOCIAL HISTORY:See Below, lives alone HOME MEDICATIONS:See Below ALLERGIES:See Below VITALS:See Below PHYSICAL EXAMINATION: GENERAL: Awake, alert, uncomfortable-appearing, in no distress HENT: Normocephalic, atraumatic. Oropharynx unremarkable. EYES: Normal conjunctiva. Sclera non-icteric. NECK: Inspection normal. Non-tender. Supple. No nuchal rigidity. FROM. No masses. RESPIRATORY: Clear to auscultation. No wheezes. No rales. Normal respiratory effort. CARDIAC: Normal rate. Normal rhythm. No murmurs. No rubs. Extremities warm and well perfused. Pulses equal. No JVD. GI: Soft, non-distended. No tenderness to palpation. No rebound or guarding. No masses. RECTAL: Deferred. MUSCULOSKELETAL: Upper extremities are atraumatic. Right lower extremity is atraumatic. Chest examination reveals no tenderness. The back is symmetrical on inspection without obvious abnormality. There is no CVA tenderness to palpation. Immobilizer present on the left lower extremity. This was removed. There is m oderate swelling of the left knee joint area and inferior to that. There is tenderness to palpation around the inferior aspect of the knee joint. No open wounds. Old surgical scars present bilaterally. Mild tenderness to the left posterior aspect of the hip on the left side. NEURO: Normal sensorium. No sensory or motor deficits noted. SKIN: No rash or jaundice noted. Kyle Koch MD Past Med/Surg History Medical History Anxiety Asthma Bipolar disorder Chronic back pain Depression Diabetes Heart disease Lumbar stenosis (05/27/14) Migraine Osteoarthritis, knee Surgical History History of back surgery History of cervical spinal arthrodesis History of cholecystectomy History of hysterectomy History of lumbar fusion History of shoulder surgery Left History of total knee arthroplasty Family History Father Hypertension Sister Cancer Other Asthma Heart disease No family history of adverse response to anesthesia No family history of bleeding disorder Social History Smoking Status: Never smoker Hx Alcohol Use: No Hx Substance Use: No Preferred Language: Ecuadorean Feels Safe at Home: Yes Allergies Allergies Allergy/AdvReac Type Severity Reaction Status Date / Time fentanyl Allergy Severe RASH Verified 08/31/21 13:28 Cephalosporins Allergy Mild RASH TO Verified 08/31/21 13:28 KEFLEX grass pollen Allergy Sneezing Verified 08/31/21 13:28 tree and shrub pollen Allergy Sneezing Verified 08/31/21 13:28 methylprednisolone AdvReac Intermediate DIZZY;RAPID Verified 08/31/21 13:28 HEART RATE Home Meds Home Medications Medication Instructions Recorded Confirmed clonazepam 0.5 mg tablet 0.5 mg PO TID 08/14/18 08/31/21 esomeprazole magnesium 40 mg 40 mg PO QAM 08/14/18 08/31/21 capsule,delayed release furosemide 40 mg tablet 40 mg PO DAILY PRN 08/14/18 08/31/21 metformin 500 mg tablet 500 mg PO BID 08/14/18 08/31/21 montelukast 10 mg tablet 10 mg PO HS PRN 08/14/18 08/31/21 fluoxetine 40 mg capsule 40 mg PO DAILY 08/29/21 08/31/21 hydroxyzine HCl 25 mg tablet 25 mg PO BID 08/29/21 08/31/21 lamotrigine 200 mg tablet 300 mg PO QPM 08/29/21 08/31/21 mirtazapine 15 mg tablet 15 mg PO HS 08/29/21 08/31/21 Previous Rx's Medication Instructions Recorded baclofen 10 mg tablet 10 mg PO Q8H PRN #10 tab 01/29/21 hydrocodone 5 mg-acetaminophen 325 1 tab PO Q6H PRN #30 tab 08/29/21 mg tablet Results & Data (ED) Vital Signs Vital Signs - 24 hr 08/31/21 12:09 08/31/21 12:12 08/31/21 14:00 Temperature 37.0 C Temperature Source Oral Pulse Rate 90 Pulse Rate [Radial] 88 87 Pulse Rhythm Regular Pulse Rhythm [Radial] Regular Regular Pulse Strength Normal Pulse Strength [Radial] Normal Normal Respiratory Rate 20 20 18 Respiratory Effort / Characteristics Non-Labored Non-Labored Non-Labored Respiratory Depth Normal Normal Normal Respiratory Pattern Regular Blood Pressure 147/79 H Blood Pressure [Right Arm] 147/79 H 131/85 Blood Pressure Mean 101 Blood Pressure Mean [Right Arm] 101 100 Blood Pressure Position Lying Blood Pressure Position [Right Arm] Lying Lying Pulse Oximetry 96 97 95 Oxygen Delivery Method Room Air Room Air Room Air Sepsis Recent Fever Within 48 Hours No Sepsis New/Unexplained Change in Mental Status No Sepsis Action Taken by Nursing No Action Required Laboratory Data Result diagrams: 08/31/21 12:53 08/31/21 12:53 Lab Results 08/31/21 08/31/21 08/31/21 Range/Units 12:53 12:53 12:53 WBC 9.70 (4.8-10.8) K/uL RBC 3.49 L (4.2-5.4) M/uL Hgb 9.4 L (12.0-16.0) g/dL Hct 29.2 L (37-47) % MCV 83.7 (80-100) fL MCH 26.9 (25-34) pg MCHC 32.2 (32-36) g/dL RDW Std Deviation 50.7 H (36.4-46.3) fL RDW Coeff of Gary 16.7 H (11.5-14.5) % Plt Count 254 (130-400) K/uL MPV 9.1 (7.4-10.4) fL Immature Gran % (Auto) 0.4 % Neut % (Auto) 72.8 % Lymph % (Auto) 17.6 % Traill % (Auto) 7.9 % Eos % (Auto) 1.0 % Baso % (Auto) 0.3 % Neut # (Auto) 7.05 H (1.4-6.5) K/uL Lymph # (Auto) 1.71 (1.2-3.4) K/uL Traill # (Auto) 0.77 H (0.11-0.59) K/uL Eos # (Auto) 0.10 (0-0.5) K/uL Baso # (Auto) 0.03 (0-0.2) K/uL Immature Gran # (Auto) 0.04 H (0.00-0.02) K/uL PT 9.8 (9.0-12.0) Seconds INR 1.0 (0.9-1.1) APTT 25.4 (21.0-31.0) Seconds PTT Ratio 1.0 Sodium 140 (136-145) mmol/L Potassium 4.0 (3.5-5.1) mmol/L Chloride 107 (98-107) mmol/L Carbon Dioxide 27 (21-32) mmol/L Anion Gap 6.0 (3-11) BUN 11 (7-18) mg/dl Creatinine 0.74 (0.6-1.2) mg/dl Est Cr Clr Drug Dosing 93.7 ml/min Est GFR ( Amer) 98.5 ml/min Est GFR (Non-Af Amer) 85.0 ml/min BUN/Creatinine Ratio 14.6 (10-20) Glucose 91 (70-99) mg/dl Calcium 8.7 (8.5-10.1) mg/dl Total Bilirubin 0.4 (0.2-1) mg/dl AST 30 (15-37) U/L ALT 22 (12-78) Alkaline Phosphatase 105 (45-117) U/L Total Protein 7.0 (6.4-8.2) gm/dl Albumin 3.1 L (3.4-5.0) gm/dl Globulin 3.9 (2.5-4.0) gm/dl Albumin/Globulin Ratio 0.8 L (0.9-2) SARS-CoV-2, RNA, NAAT (NEGATIVE) 08/31/21 Range/Units 13:25 WBC (4.8-10.8) K/uL RBC (4.2-5.4) M/uL Hgb (12.0-16.0) g/dL Hct (37-47) % MCV (80-100) fL MCH (25-34) pg MCHC (32-36) g/dL RDW Std Deviation (36.4-46.3) fL RDW Coeff of Gary (11.5-14.5) % Plt Count (130-400) K/uL MPV (7.4-10.4) fL Immature Gran % (Auto) % Neut % (Auto) % Lymph % (Auto) % Traill % (Auto) % Eos % (Auto) % Baso % (Auto) % Neut # (Auto) (1.4-6.5) K/uL Lymph # (Auto) (1.2-3.4) K/uL Traill # (Auto) (0.11-0.59) K/uL Eos # (Auto) (0-0.5) K/uL Baso # (Auto) (0-0.2) K/uL Immature Gran # (Auto) (0.00-0.02) K/uL PT (9.0-12.0) Seconds INR (0.9-1.1) APTT (21.0-31.0) Seconds PTT Ratio Sodium (136-145) mmol/L Potassium (3.5-5.1) mmol/L Chloride (98-107) mmol/L Carbon Dioxide (21-32) mmol/L Anion Gap (3-11) BUN (7-18) mg/dl Creatinine (0.6-1.2) mg/dl Est Cr Clr Drug Dosing ml/min Est GFR ( Amer) ml/min Est GFR (Non-Af Amer) ml/min BUN/Creatinine Ratio (10-20) Glucose (70-99) mg/dl Calcium (8.5-10.1) mg/dl Total Bilirubin (0.2-1) mg/dl AST (15-37) U/L ALT (12-78) Alkaline Phosphatase (45-117) U/L Total Protein (6.4-8.2) gm/dl Albumin (3.4-5.0) gm/dl Globulin (2.5-4.0) gm/dl Albumin/Globulin Ratio (0.9-2) SARS-CoV-2, RNA, NAAT NEGATIVE (NEGATIVE) Administered Medications Hydromorphone HCl (Hydromorphone Inj 0.5 Mg/0.5 Ml Syr) 0.5 mg IV Q20M PRN PRN Reason: Severe Pain (Rating 7,8,9,10) Stop: 09/14/21 12:48 Last Admin: 08/31/21 12:59 Dose: 0.5 mg Documented by: [id number] Sodium Chloride (Nss 1000ml) 1,000 mls @ 75 mls/hr IV .[id number] DECLAN Stop: 09/01/21 02:19 Last Admin: 08/31/21 12:59 Dose: 75 mls/hr Documented by: [id number] Imaging Data Radiologist's Impression: Hip X-Ray 08/31/21 12:49 XR hip LT min 2V CLINICAL HISTORY: fall two days ago. With continued left hip pain. Patient has tibial plateau fx on left knee radiographs. COMPARISON STUDY: No previous studies for comparison. TECHNIQUE: 2 left hip views FINDINGS: Bones: There is no evidence for an acute fracture or dislocation. There is no lytic or blastic lesion. Joints: The joint spaces are maintained. The bones are in anatomic alignment. Soft tissues: There is no focal soft tissue abnormality. There is no radiopaque foreign body. IMPRESSION: No acute osseous pathology. ACT 112: Negative or not required by law. Electronically signed by: Jose Patel M.D. 08/31/2021 2:06 PM Discharge Plan Visit Data Chief Complaint: Leg Injury/Pain ED Provider: Kyle Koch Discharge Problem: Tibial plateau fracture, left Forms Stand Alone Forms: My [facility] Prescriptions Prescriptions: No Action furosemide 40 mg tablet 40 mg PO DAILY PRN (Reason: Fluid Retention) RF: 0 metformin 500 mg tablet 500 mg PO BID RF: 0 clonazepam 0.5 mg tablet 0.5 mg PO TID RF: 0 esomeprazole magnesium 40 mg capsule,delayed release(DR/EC) 40 mg PO QAM RF: 0 montelukast 10 mg tablet 10 mg PO HS PRN (Reason: Allergy Symptoms) RF: 0 lamotrigine 200 mg tablet 300 mg PO QPM RF: 0 hydroxyzine HCl 25 mg tablet 25 mg PO BID RF: 0 mirtazapine 15 mg tablet 15 mg PO HS RF: 0 fluoxetine 40 mg capsule 40 mg PO DAILY RF: 0 hydrocodone-acetaminophen 5-325 mg tablet 1 tab PO Q6H PRN (Reason: pain) Qty: 30 RF: 0 baclofen 10 mg tablet 10 mg PO Q8H PRN (Reason: spasms) Qty: 10 RF: 0 Referrals Referrals: Shanelle Del Real CRNP [Primary Care Provider] -
--- NOTE | 2021-08-31 16:37 | CT Scan Report ---
CT SCAN OF THE LEFT TIBIA AND FIBULA WITHOUT IV CONTRAST CLINICAL HISTORY: Tibial plateau fracture. COMPARISON STUDY: Radiographs of the left knee dated 08/29/2021. TECHNIQUE: CT scan of the left tibia and fibula is performed from the distal femur to the foot. Image s are reviewed in the axial, sagittal, and coronal planes. IV contrast was not administered for this examination. A dose lowering technique was utilized adhering to the principles of ALARA. The examinat ion is degraded by streak artifact from a left knee arthroplasty. CT DOSE: 372.87 mGy.cm FINDINGS: The skeletal structures are osteopenic. A left knee arthroplasty is in place. There is lipo hemarthrosis at the knee joint. The distal femur appears intact. There is a comminuted and displaced fracture of the fibular head. There is a periprosthetic tibial plateau fracture. Fracture involves th e anterior, posterior, medial, and lateral cortex. Fracture line extends inferiorly involving the pos terior metadiaphyseal cortex. This is approximately 5 cm below the tibial plateau as seen on axial im age #190. There is mild apex dorsal angulation of the tibial component of the arthroplasty. There is soft tissue edema and mild hemorrhage around the fracture site. No large/organized hematoma is identi fied. The distal tibia and fibula appear intact. The ankle mortise is maintained. There is mild gener alized atrophy of the regional musculature. The Achilles tendon is intact as visualized. IMPRESSION: 1. Periprosthetic tibial plateau fracture as detailed above. 2. Fracture of the fibular head. 3. There is associated lipohemarthrosis. ACT 112: Negative or not required by law. Dictated: 08/31/2021 4:17 PM Transcribed: 08/31/2021 4:34 PM Debra [id number] [email or web address] Electronically signed by: Bunny Gonzalez M.D. 08/31/2021 4:36 PM
[2021-08-31] MEDS ORDERED: MONTELUKAST SODIUM 10 MG TABLET PO PRN (19:32)
[2021-08-31] MEDS: clonazePAM 0.5 MG TAB PO SCH ×2 (20:06→20:17)
[2021-08-31] MEDS: HYDROmorphone INJ 0.5 MG/0.5 ML SYR IV PRN (20:06)
[2021-08-31] MEDS ORDERED: STAT IV Infusion **Titration per Protocol STA (20:19)
[2021-08-31] MEDS ORDERED: INSULIN PROTOCOL GOAL RANGE ONE (20:19)
[2021-08-31] MEDS ORDERED: INSULIN REGULAR 250 UNITS in SODIUM CHLORIDE 0.9% 247.5 ML IV SCH (20:30)
[2021-08-31] MEDS: hydrOXYzine HCl 25 MG TAB PO SCH (20:47)
[2021-08-31] MEDS: lamoTRIgine 100 MG TAB PO SCH (20:48)
[2021-08-31] MEDS: MIRTAZAPINE TAB 15 MG TAB PO SCH (20:48)
[2021-08-31] MEDS ORDERED: INSULIN ASPART PER UNIT SC SCH (21:00)
[2021-08-31] MEDS ORDERED: INSULIN ASPART 100 UNITS/ML 3 ML PEN SC SCH (21:15)
[2021-08-31] MEDS ORDERED: GLUCOSE 10 TABS/TUBE PO PRN (21:15)
[2021-08-31] MEDS ORDERED: GLUCAGON FOR INJ 1 MG VIAL SQ PRN (21:15)
[2021-08-31] MEDS ORDERED: CARBOHYDRATES FOR HYPOGLYCEMIA PO PRN (21:15)
[2021-08-31] MEDS ORDERED: GLUCOSE 40% GEL 15 GM TUBE PO PRN (21:15)
[2021-08-31] MEDS ORDERED: DEXTROSE 50% 50 ML SYRINGE IV PRN (21:15)
[2021-09-01] MEDS: HYDROCODONE/ACETAMOPHEN 5/325MG TAB PO PRN ×3 (01:12→20:14)
[2021-09-01] MEDS: HYDROmorphone INJ 0.5 MG/0.5 ML SYR IV PRN ×3 (03:10→15:24)
[2021-09-01] MEDS: INSULIN ASPART 100 UNITS/ML 3 ML PEN SC SCH ×4 (06:10→21:50)
[2021-09-01 07:39] LABS: Basophils # (auto) 0.05 K/uL (0-0.2); Basophils % (auto) 0.6 %; Eosinophils # (auto) 0.32 K/uL (0-0.5); Hematocrit (blood only) 27.6 % (37-47); Hemoglobin 8.8 g/dL (12.0-16.0); Immature Granulocytes # (auto) 0.02 K/uL (0.00-0.02); Immature Granulocytes % (auto) 0.3 %; Lymphocytes # (auto) 2.88 K/uL (1.2-3.4); Lymphocytes % (auto) 36.1 %; Mean Corpuscular Hemoglobin 26.8 pg (25-34); Mean Corpuscular Hgb Conc 31.9 g/dL (32-36); Mean Corpuscular Volume 84.1 fL (80-100); Mean Platelet Volume 9.1 fL (7.4-10.4); Monocytes # (auto) 0.57 K/uL (0.11-0.59); Monocytes % (auto) 7.2 %; Neutrophils # (auto) 4.13 K/uL (1.4-6.5); Neutrophils % (auto) 51.8 %; Platelet Count 243 K/uL (130-400); RDW Coefficient of Variation 16.8 % (11.5-14.5); Red Blood Count 3.28 M/uL (4.2-5.4); White Blood Count 7.97 K/uL (4.8-10.8)
--- NOTE | 2021-09-01 07:48 | Hospitalist Progress Note ---
Date of Service September 01, 2021 Assessment & Plan (1) Tibial plateau fracture, left: Plan: Due to the patient's clinical presentation and imaging she will be admitted to the hospital proceeding as follows: Analgesics will be provided Orthopedics will be consulted for necessary intervention for her left knee fracture. The treating emergency room physician is already discussed with Dr. Jerry Perez who will see the patient in consultation. Further recommendations concerning this fracture will be at the discretion of the orthopedic surgeon CT Left LE IMPRESSION: 1. Periprosthetic tibial plateau fracture as detailed above. 2. Fracture of the fibular head. 3. There is associated lipohemarthrosis. SCDs for DVT prevention, chemoproph once surgical intervention complete or decision made regarding timing NPO for now Pain control, antiemetics prn NS @ 50cc/hr ordered but increased to 100cc/hr while awaiting ortho consult Per PA from Ortho, as consulted Dr Fam initially however patient to follow with [facility] for this particular knee --> COnsult changed to Dr Wilson. Has not yet seen patient however possible patient to need surgical correction with [facility] surgeon. 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 -- on hold while inpatient Pharmacy has been consulted for glycemic control Monitor BSGs (3) Acid reflux: Plan: on esomeprazole 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 OF INFECTION CONTROL Protonix while inpatient (4) Seasonal allergies: Plan: continue montelukast when able (5) Anxiety: Plan: and hx of bipolar as below --> got home medications last evening but NPO for current procedure --> continue when taking PO again as follows: Clonazepam 0.5mg TID, fluocetine 40mg daily, vistaril 25mg BID, lamotrigine 300mg PM, mirtazapine 15mg HS Had given 1x ativan IVP 0.25mg this AM while nPO, but resuming home medications as no plans for surgery today (6) Bipolar disorder: Plan: as above, continue home medications (7) Fall: Plan: 2 days prior to [facility], stated to have falled/tripped over rug No LOC but did hit here head -- CT Head done on 08/29 without acute finding PT/OT once seen by ortho/surgical intervention will check UA to be safe/B12 in AM Plan: Orthopedics on consult, pending SCDs for DVT prophylaxis for now, chemo once surgical intervention/plan established Pain control, antiemetics Will await PT/OT evals until seen by ortho, but suspect needing some rehab at d/c as lives alone ( 6 years ago) __> would have patient have overnight sleep study in future as also likely has component of CHIQUITA Admission and Anticipated Discharge Date Admission Date: August 31, 2021 Subjective patient evaluated this morning saw Dr Perez in ER but awaiting to be seen by Dr Wilson as [facility] did her L knee replacement. Currently NPO. Got medication for pain and improved. Having difficulty with urinating with bedpan and requesting whitten. Discussed wanting to check UA to r/o infection. She notes she has had some difficulty with voiding but no pain or blood noted. Just not feeling emptying but thought due to rods in back and no able to use bedpan. On room air but had been on 2L NC for SpO2 88% in ER. She is unaware of any shortness of breath or chest pain, and not sure if snores as lives alone and mary miramontes 6-7 yrs ago. She does have daytime somnolence and discussed likely CHIQUITA and will perform overnight pulse ox while inpatient, but closer to discharge date. Chronic R knee pain and notes "wish it was that knee" to get repaired, and has been using assistive device at home and immobilizer as given in ER days prior but has been unable to ambulate at home safely and increased pain. No fever, chills, chest pain, shortness of breath, abd pain, nausea or vomiting at this time. She is requesting dose of ativan. Daughter updated on phone in room regarding plan. Questions/concerns addressed at this time. If no plans for surgery will resume home psych medications for hx bipolar. Review of Systems Review of Systems: All systems reviewed & are unremarkable except as noted in HPI & below Physical Exam Constitutional: well developed, well nourished and + obese; no acute distress laying in bed Eyes: no conjunctival abnormality ENMT: Ears: no hearing impairment mmm Neck: trachea midline Respiratory: normal respiratory effort, lungs clear to auscultation Cardiovascular: Rate/Rhythm: regular rate and regular rhythm Vessels: dorsalis pedis pulses present and radial pulses present Gastrointestinal (Abdomen): Soft, nontender, nondistended Musculoskeletal: Left knee is immobilized in a brace. Patient is able to dorsiflex and plantar flex both feet without limitations. effusion noted to knee, prior surgical incision pulses palpable bilaterally, neuropathy (chronic) did not take through ROM given fracture prior surgical incision to R knee as well Skin: no rashes Neurologic: moves all extremities Psychiatric: A+Ox3, euthymic affect Genitourinary: no whitten Results & Data Results & Data ([facility]) Vital Signs (Past 12 Hours) Vital Signs Temp Pulse Pulse Resp BP BP Pulse Ox 09/01/21 07:25 36.9 C 85 18 130/82 99 09/01/21 04:03 37.1 C 83 16 119/75 92 09/01/21 01:20 36.9 C 91 H 18 117/77 98 09/01/21 01:00 100 H 20 123/77 98 08/31/21 23:00 90 18 98 08/31/21 21:30 88 L Laboratory Results 09/01/21 09/01/21 09/01/21 Range/Units 12:22 07:12 07:12 WBC (4.8-10.8) K/uL RBC (4.2-5.4) M/uL Hgb (12.0-16.0) g/dL Hct (37-47) % MCV (80-100) fL MCH (25-34) pg MCHC (32-36) g/dL RDW Std Deviation (36.4-46.3) fL RDW Coeff of Gary (11.5-14.5) % Plt Count (130-400) K/uL MPV (7.4-10.4) fL Immature Gran % (Auto) % Neut % (Auto) % Lymph % (Auto) % Burnett % (Auto) % Eos % (Auto) % Baso % (Auto) % Neut # (Auto) (1.4-6.5) K/uL Lymph # (Auto) (1.2-3.4) K/uL Burnett # (Auto) (0.11-0.59) K/uL Eos # (Auto) (0-0.5) K/uL Baso # (Auto) (0-0.2) K/uL Immature Gran # (Auto) (0.00-0.02) K/uL Sodium (136-145) mmol/L Potassium (3.5-5.1) mmol/L Chloride (98-107) mmol/L Carbon Dioxide (21-32) mmol/L Anion Gap (3-11) BUN (7-18) mg/dl Creatinine (0.6-1.2) mg/dl Est Cr Clr Drug Dosing ml/min Est GFR ( Amer) ml/min Est GFR (Non-Af Amer) ml/min BUN/Creatinine Ratio (10-20) Glucose (70-99) mg/dl POC Glucose 95 (70-99) mg/dl Estimat Average Glucose mg/dl Hemoglobin A1c (4.5-5.6) % Calcium (8.5-10.1) mg/dl Magnesium 2.0 (1.8-2.4) mg/dl Hepatitis C Ab Screen Neg (Neg) 09/01/21 09/01/21 09/01/21 Range/Units 07:12 07:12 07:12 WBC 7.97 (4.8-10.8) K/uL RBC 3.28 L (4.2-5.4) M/uL Hgb 8.8 L (12.0-16.0) g/dL Hct 27.6 L (37-47) % MCV 84.1 (80-100) fL MCH 26.8 (25-34) pg MCHC 31.9 L (32-36) g/dL RDW Std Deviation 51.0 H (36.4-46.3) fL RDW Coeff of Gary 16.8 H (11.5-14.5) % Plt Count 243 (130-400) K/uL MPV 9.1 (7.4-10.4) fL Immature Gran % (Auto) 0.3 % Neut % (Auto) 51.8 % Lymph % (Auto) 36.1 % Burnett % (Auto) 7.2 % Eos % (Auto) 4.0 % Baso % (Auto) 0.6 % Neut # (Auto) 4.13 (1.4-6.5) K/uL Lymph # (Auto) 2.88 (1.2-3.4) K/uL Burnett # (Auto) 0.57 (0.11-0.59) K/uL Eos # (Auto) 0.32 (0-0.5) K/uL Baso # (Auto) 0.05 (0-0.2) K/uL Immature Gran # (Auto) 0.02 (0.00-0.02) K/uL Sodium 140 (136-145) mmol/L Potassium 3.4 L (3.5-5.1) mmol/L Chloride 110 H (98-107) mmol/L Carbon Dioxide 26 (21-32) mmol/L Anion Gap 5.0 (3-11) BUN 8 (7-18) mg/dl Creatinine 0.57 L (0.6-1.2) mg/dl Est Cr Clr Drug Dosing 121.6 ml/min Est GFR ( Amer) 112.7 ml/min Est GFR (Non-Af Amer) 97.3 ml/min BUN/Creatinine Ratio 13.8 (10-20) Glucose 100 H (70-99) mg/dl POC Glucose (70-99) mg/dl Estimat Average Glucose 140 mg/dl Hemoglobin A1c 6.5 H (4.5-5.6) % Calcium 8.2 L (8.5-10.1) mg/dl Magnesium (1.8-2.4) mg/dl Hepatitis C Ab Screen (Neg) 09/01/21 09/01/21 Range/Units 06:04 00:47 WBC (4.8-10.8) K/uL RBC (4.2-5.4) M/uL Hgb (12.0-16.0) g/dL Hct (37-47) % MCV (80-100) fL MCH (25-34) pg MCHC (32-36) g/dL RDW Std Deviation (36.4-46.3) fL RDW Coeff of Gary (11.5-14.5) % Plt Count (130-400) K/uL MPV (7.4-10.4) fL Immature Gran % (Auto) % Neut % (Auto) % Lymph % (Auto) % Burnett % (Auto) % Eos % (Auto) % Baso % (Auto) % Neut # (Auto) (1.4-6.5) K/uL Lymph # (Auto) (1.2-3.4) K/uL Burnett # (Auto) (0.11-0.59) K/uL Eos # (Auto) (0-0.5) K/uL Baso # (Auto) (0-0.2) K/uL Immature Gran # (Auto) (0.00-0.02) K/uL Sodium (136-145) mmol/L Potassium (3.5-5.1) mmol/L Chloride (98-107) mmol/L Carbon Dioxide (21-32) mmol/L Anion Gap (3-11) BUN (7-18) mg/dl Creatinine (0.6-1.2) mg/dl Est Cr Clr Drug Dosing ml/min Est GFR ( Amer) ml/min Est GFR (Non-Af Amer) ml/min BUN/Creatinine Ratio (10-20) Glucose (70-99) mg/dl POC Glucose 98 106 H (70-99) mg/dl Estimat Average Glucose mg/dl Hemoglobin A1c (4.5-5.6) % Calcium (8.5-10.1) mg/dl Magnesium (1.8-2.4) mg/dl Hepatitis C Ab Screen (Neg) Diagnostic Findings Hip X-Ray 08/31/21 12:49 XR hip LT min 2V CLINICAL HISTORY: fall two days ago. With continued left hip pain. Patient has tibial plateau fx on left knee radiographs. COMPARISON STUDY: No previous studies for comparison. TECHNIQUE: 2 left hip views FINDINGS: Bones: There is no evidence for an acute fracture or dislocation. There is no lytic or blastic lesion. Joints: The joint spaces are maintained. The bones are in anatomic alignment. Soft tissues: There is no focal soft tissue abnormality. There is no radiopaque foreign body. IMPRESSION: No acute osseous pathology. ACT 112: Negative or not required by law. Electronically signed by: Jose Patel M.D. 08/31/2021 2:[address] 08/31/21 14:42 CT SCAN OF THE LEFT TIBIA AND FIBULA WITHOUT IV CONTRAST CLINICAL HISTORY: Tibial plateau fracture. COMPARISON STUDY: Radiographs of the left knee dated 08/29/2021. TECHNIQUE: CT scan of the left tibia and fibula is performed from the distal femur to the foot. Images are reviewed in the axial, sagittal, and coronal planes. IV contrast was not administered for this examination. A dose lowering technique was utilized adhering to the principles of ALARA. The examination is degraded by streak artifact from a left knee arthroplasty. CT DOSE: 372.87 mGy.cm FINDINGS: The skeletal structures are osteopenic. A left knee arthroplasty is in place. There is lipohemarthrosis at the knee joint. The distal femur appears intact. There is a comminuted and displaced fracture of the fibular head. There is a periprosthetic tibial plateau fracture. Fracture involves the anterior, posterior, medial, and lateral cortex. Fracture line extends inferiorly involving the posterior metadiaphyseal cortex. This is approximately 5 cm below the tibial plateau as seen on axial image #190. There is mild apex dorsal angulation of the tibial component of the arthroplasty. There is soft tissue edema and mild hemorrhage around the fracture site. No large/organized hematoma is identified. The distal tibia and fibula appear intact. The ankle mortise is maintained. There is mild generalized atrophy of the regional musculature. The Achilles tendon is intact as visualized. IMPRESSION: 1. Periprosthetic tibial plateau fracture as detailed above. 2. Fracture of the fibular head. 3. There is associated lipohemarthrosis. ACT 112: Negative or not required by law. Dictated: 08/31/2021 4:17 PM Transcribed: 08/31/2021 4:34 PM Debra [id number] [email or web address] Electronically signed by: Bunny Gonzalez M.D. 08/31/2021 4:36 PM PG Care Time/CCT Total # of Minutes Spent Total Time Spent with Patient: Total time spent is greater than 50% in coordination of care (as documented) at patient's floor/unit and/or counseling patient: Coding Level of Care Code 13611 Subseq Hosp Care Lvl 3 Diagnoses Tibial plateau fracture, left S82.142A Diabetes E11.9 Acid reflux K21.9 Seasonal allergies J30.2 Anxiety F41.9 Bipolar disorder F31.9 Fall W19.XXXA
[2021-09-01 07:50] LABS: Estimated Average Glucose 140 mg/dl; Hemoglobin A1C 6.5 % (4.5-5.6)
[2021-09-01 08:23] LABS: BUN Creatinine Ratio 13.8 (10-20); Calcium 8.2 mg/dl (8.5-10.1); Creatinine Clr Calc Pharmacy 121.6 ml/min; Est GFR (African American) 112.7 ml/min; Est GFR (Non-African American) 97.3 ml/min; Potassium 3.4 mmol/L (3.5-5.1)
[2021-09-01] MEDS ORDERED: NSS + 20MEQ KCL 20 MEQ/1,000 ML BAG IV SCH (08:30)
[2021-09-01] MEDS ORDERED: FAMOTIDINE 20 MG in SYRINGE 3 ML IV SCH (09:00)
[2021-09-01] MEDS ORDERED: LORazepam 0.25 MG/0.5 ML VIAL IV PRN (09:29)
--- NOTE | 2021-09-01 13:05 | Pharmacy Report ---
Pharmacy Glycemic Short Note 2 - Date of Service September 01, 2021 - Glycemic Short BSG Results (Last 24 hours): 08/31/21 09/01/21 09/01/21 12:53 00:47 06:04 Glucose 91 POC Glucose 106 H 98 09/01/21 09/01/21 07:12 12:22 Glucose 100 H POC Glucose 95 OUTPATIENT ANTIDIABETIC REGIMEN: * metformin 500 mg BID ASSESSMENT: * Ms Lindquist is a 66 y/o F with a PMH of T2DM well controlled on 1 oral agent who presents with orthopedic fracture. * Patient is currently NPO for potential procedure. * BSGs have been 98 and 95 mg/dL today. * Novolog weight-based stress of 1 (due to body habitus) for now. * Monitor closely in case steroids are given during procedure. PLAN FOR INPATIENT GLYCEMIC CONTROL: * Hold outpatient oral diabetes medications * Basal insulin * hold while NPO * Bolus insulin * NovoLog per scale ACHS or Q6hrs while NPO * Goal Range: Low 110 mg/dL - High 140 mg/dL * Correction Factor: 35 mg/dL/unit * Nutritional / Prandial insulin per carb ratio of 1 unit per 10 grams CHO consumed PLAN FOR DISCHARGE: * Patient's HbA1C is well within goal (currently is 6.5% whereas goal is < 7%) * Continue home regimen
[2021-09-01] MEDS: clonazePAM 0.5 MG TAB PO SCH ×3 (14:35→20:14)
[2021-09-01] MEDS: hydrOXYzine HCl 25 MG TAB PO SCH ×2 (14:35→20:16)
[2021-09-01] MEDS: FLUoxetine HCL 20 MG CAP PO SCH (14:35)
[2021-09-01] MEDS: PANTOprazole 40 MG TAB PO SCH (14:36)
[2021-09-01] MEDS ORDERED: INSULIN ASPART PER UNIT ONE (18:17)
[2021-09-01] MEDS: MIRTAZAPINE TAB 15 MG TAB PO SCH (20:14)
[2021-09-01] MEDS: lamoTRIgine 100 MG TAB PO SCH (20:15)
[2021-09-01] MEDS ORDERED: Nursing to Pharmacy Communication SCH (20:30)
[2021-09-02] MEDS: HYDROCODONE/ACETAMOPHEN 5/325MG TAB PO PRN ×3 (05:08→18:42)
[2021-09-02 06:21] LABS: Hematocrit (blood only) 28.3 % (37-47); Hemoglobin 8.9 g/dL (12.0-16.0); Mean Corpuscular Hemoglobin 26.4 pg (25-34); Mean Corpuscular Hgb Conc 31.4 g/dL (32-36); Mean Platelet Volume 8.5 fL (7.4-10.4); Platelet Count 280 K/uL (130-400); RDW Coefficient of Variation 16.7 % (11.5-14.5); RDW Standard Deviation 51.1 fL (36.4-46.3); Red Blood Count 3.37 M/uL (4.2-5.4); White Blood Count 6.39 K/uL (4.8-10.8)
[2021-09-02 06:56] LABS: BUN Creatinine Ratio 10.6 (10-20); Calcium 8.3 mg/dl (8.5-10.1); Creatinine Clr Calc Pharmacy 121.6 ml/min; Est GFR (African American) 112.7 ml/min; Est GFR (Non-African American) 97.3 ml/min; Potassium 3.6 mmol/L (3.5-5.1)
[2021-09-02 07:00] LABS: Ferritin 20.4 ng/ml (8-388)
--- NOTE | 2021-09-02 08:59 | Hospitalist Progress Note ---
Date of Service September 02, 2021 Assessment & Plan (1) Tibial plateau fracture, left: Plan: Due to the patient's clinical presentation and imaging she will be admitted to the hospital proceeding as follows: Analgesics will be provided Orthopedics will be consulted for necessary intervention for her left knee fracture. The treating emergency room physician is already discussed with Dr. Jerry Perez who will see the patient in consultation. Further recommendations concerning this fracture will be at the discretion of the orthopedic surgeon CT Left LE IMPRESSION: 1. Periprosthetic tibial plateau fracture as detailed above. 2. Fracture of the fibular head. 3. There is associated lipohemarthrosis. pain control, antiemetics prn -- eating/drinking and moving her bowels Per PA from Ortho, as consulted Dr Fam initially however patient to follow with [facility] for this particular knee --> COnsult changed to Dr Wilson. Has not yet seen patient however possible patient to need surgical correction with [facility] surgeon. PA to alert of plans after they review with surgeons --> per orthopedic consult 09/02, patient able to be non-wt bearing LLE abd recommend continued use of immobilizer and d/c when medically stable Will order PT/OT evals --lives alone and may need to go to facility first and coordinate f/u with [place] surgeon. 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 (4) Seasonal allergies: Plan: continue montelukast (5) Anxiety: Plan: and hx of bipolar as below Continue Clonazepam 0.5mg TID, fluocetine 40mg daily, vistaril 25mg BID, lamotrigine 300mg PM, mirtazapine 15mg HS (6) Bipolar disorder: Plan: as above, continue home medications (7) Fall: Plan: 2 days prior to admission at [facility], stated to have falled/tripped over rug No LOC but did hit here head -- CT Head done on 08/29 without acute finding PT/OT once seen by ortho/surgical intervention B12 wnl UA pending (8) Anemia: Plan: on admission, normocytic no blood/tarry appearance to stool noted and has been moving bowels iron studies with low iron/ferritin/trans% sat and did have reports of fatigue/sob on exertion Venofer 300mg x 1 today, repeat in AM, d/c on oral iron. Has issues w diarrhea and this may also help B12 wnl and check folate in AM CBC in Am Plan: Orthopedics on consult -- consult done today. non-WB LLE, continue immobilizer PT/OT consulted, pending. -- lives alone CM following Will need f/u [facility] for surgical correction once fracture line healed Venofer x 1 now for SAMUEL, repeat dose for tomorrow Overnight pulse ox for tonight for suspected CHIQUITA Admission and Anticipated Discharge Date Admission Date: August 31, 2021 Subjective patient evaluated this morning Did not see Dr Wilson or Maco yesterday and discussed awaiting their input to see about PT/OT and need for surgery now vs immobilizer and follow up with initial surgeon. She notes increased discomfort at times to the knee and discussed oral pain medication and will increase to 2 tablets as needed for increased discomfort. Also would like to start chemo proph if no plans for current surgery -- no increased calf discomfort on exam outside of around knee effusion. no increased calf edema compared to the left. She does still endorse fatigue. Discussed iron studies with SAMUEL, and patient does note she had 3-4 bowel movements but unsure if any blood/tarry appearance as she did not look. Lidocaine patch to hip and will ask RN to provide pillows for comfort and replacement of immobilizer. No fever, chills, chest pain, shortness of breath, cough, abdominal pain, nausea or vomiting at this time. Review of Systems Review of Systems: All systems reviewed & are unremarkable except as noted in HPI & below Physical Exam Constitutional: well developed, well nourished and + obese; no acute distress general pallor Eyes: no conjunctival abnormality ENMT: Ears: no hearing impairment Neck: trachea midline Respiratory: normal respiratory effort, lungs clear to auscultation Cardiovascular: Rate/Rhythm: regular rate and regular rhythm Vessels: dorsalis pedis pulses present and radial pulses present Gastrointestinal (Abdomen): normal bowel sounds, soft, nontender, no hepatosplenomegaly Musculoskeletal: Left knee is immobilized in a brace (removed by aide this morning for itching). Patient is able to dorsiflex and plantar flex both feet without limitations. effusion noted to knee, prior surgical incision pulses palpable bilaterally, neuropathy (chronic) did not take through ROM given fracture --> did have some pain with gentle ROM today prior surgical incision to R knee as well Skin: no rashes Neurologic: moves all extremities Psychiatric: A+Ox3, euthymic affect Genitourinary: whitten draining yellow urine Results & Data Results & Data ([facility]) Vital Signs (Past 12 Hours) Vital Signs Temp Pulse Resp BP Pulse Ox 09/02/21 07:41 36.7 C 87 20 141/87 H 96 09/01/21 22:50 37 C 98 H 22 135/88 92 Laboratory Results 09/02/21 09/02/21 09/02/21 Range/Units 08:13 05:57 05:57 WBC (4.8-10.8) K/uL RBC (4.2-5.4) M/uL Hgb (12.0-16.0) g/dL Hct (37-47) % MCV (80-100) fL MCH (25-34) pg MCHC (32-36) g/dL RDW Std Deviation (36.4-46.3) fL RDW Coeff of Gary (11.5-14.5) % Plt Count (130-400) K/uL MPV (7.4-10.4) fL Sodium 142 (136-145) mmol/L Potassium 3.6 (3.5-5.1) mmol/L Chloride 109 H (98-107) mmol/L Carbon Dioxide 27 (21-32) mmol/L Anion Gap 6.0 (3-11) BUN 6 L (7-18) mg/dl Creatinine 0.57 L (0.6-1.2) mg/dl Est Cr Clr Drug Dosing 121.6 ml/min Est GFR ( Amer) 112.7 ml/min Est GFR (Non-Af Amer) 97.3 ml/min BUN/Creatinine Ratio 10.6 (10-20) Glucose 101 H (70-99) mg/dl POC Glucose 100 H (70-99) mg/dl Calcium 8.3 L (8.5-10.1) mg/dl Iron 34 L (35-150) mcg/dl TIBC 301 (250-450) mcg/dl Transferrin 230 (200-360) mg/dl Transferrin % Sat 10 L (15-50) % Ferritin 20.4 (8-388) ng/ml Vitamin B12 795 (193-986) pg/ml Hepatitis C Ab Screen (Neg) 09/02/21 09/01/21 09/01/21 Range/Units 05:57 20:42 17:23 WBC 6.39 (4.8-10.8) K/uL RBC 3.37 L (4.2-5.4) M/uL Hgb 8.9 L (12.0-16.0) g/dL Hct 28.3 L (37-47) % MCV 84.0 (80-100) fL MCH 26.4 (25-34) pg MCHC 31.4 L (32-36) g/dL RDW Std Deviation 51.1 H (36.4-46.3) fL RDW Coeff of Gary 16.7 H (11.5-14.5) % Plt Count 280 (130-400) K/uL MPV 8.5 (7.4-10.4) fL Sodium (136-145) mmol/L Potassium (3.5-5.1) mmol/L Chloride (98-107) mmol/L Carbon Dioxide (21-32) mmol/L Anion Gap (3-11) BUN (7-18) mg/dl Creatinine (0.6-1.2) mg/dl Est Cr Clr Drug Dosing ml/min Est GFR ( Amer) ml/min Est GFR (Non-Af Amer) ml/min BUN/Creatinine Ratio (10-20) Glucose (70-99) mg/dl POC Glucose 97 109 H (70-99) mg/dl Calcium (8.5-10.1) mg/dl Iron (35-150) mcg/dl TIBC (250-450) mcg/dl Transferrin (200-360) mg/dl Transferrin % Sat (15-50) % Ferritin (8-388) ng/ml Vitamin B12 (193-986) pg/ml Hepatitis C Ab Screen (Neg) 09/01/21 09/01/21 Range/Units 12:22 07:12 WBC (4.8-10.8) K/uL RBC (4.2-5.4) M/uL Hgb (12.0-16.0) g/dL Hct (37-47) % MCV (80-100) fL MCH (25-34) pg MCHC (32-36) g/dL RDW Std Deviation (36.4-46.3) fL RDW Coeff of Gary (11.5-14.5) % Plt Count (130-400) K/uL MPV (7.4-10.4) fL Sodium (136-145) mmol/L Potassium (3.5-5.1) mmol/L Chloride (98-107) mmol/L Carbon Dioxide (21-32) mmol/L Anion Gap (3-11) BUN (7-18) mg/dl Creatinine (0.6-1.2) mg/dl Est Cr Clr Drug Dosing ml/min Est GFR ( Amer) ml/min Est GFR (Non-Af Amer) ml/min BUN/Creatinine Ratio (10-20) Glucose (70-99) mg/dl POC Glucose 95 (70-99) mg/dl Calcium (8.5-10.1) mg/dl Iron (35-150) mcg/dl TIBC (250-450) mcg/dl Transferrin (200-360) mg/dl Transferrin % Sat (15-50) % Ferritin (8-388) ng/ml Vitamin B12 (193-986) pg/ml Hepatitis C Ab Screen Neg (Neg) PG Care Time/CCT Total # of Minutes Spent Total Time Spent with Patient: Total time spent is greater than 50% in coordination of care (as documented) at patient's floor/unit and/or counseling patient: Coding Level of Care Code 55579 Subseq Hosp Care Lvl 3 Diagnoses Tibial plateau fracture, left S82.142A Diabetes E11.9 Acid reflux K21.9 Seasonal allergies J30.2 Anxiety F41.9 Bipolar disorder F31.9 Fall W19.XXXA Anemia D64.9
[2021-09-02] MEDS ORDERED: IRON SUCROSE 300 MG in SODIUM CHLORIDE 0.9% 250 ML IV ONE ×2 (09:15→10:00)
[2021-09-02] MEDS: FLUoxetine HCL 20 MG CAP PO SCH (09:23)
[2021-09-02] MEDS: PANTOprazole 40 MG TAB PO SCH (09:24)
[2021-09-02] MEDS: hydrOXYzine HCl 25 MG TAB PO SCH ×2 (09:24→21:59)
[2021-09-02] MEDS: INSULIN ASPART 100 UNITS/ML 3 ML PEN SC SCH ×4 (09:31→21:30)
[2021-09-02] MEDS: clonazePAM 0.5 MG TAB PO SCH ×3 (09:37→21:30)
--- NOTE | 2021-09-02 11:45 | Orthopedic Consultation ---
Date of Consultation September 02, 2021 Assessment & Plan (1) Periprosthetic fracture around internal prosthetic left knee joint, initial encounter: She has a left tibial plateau periprosthetic fracture around a total knee arthroplasty. The fracture is minimally displaced, but at least the tibial component of the total knee arthroplasty will need revised. This may need to be done on a delayed basis after the fracture line heals. This will have to be in consultation with the surgeon who will definitively treat her; we do not have the ability to do her surgery here. For now, recommend keeping her left knee in a knee immobilizer, and remain nonweightbearing on the left leg. She may be discharged when stable from a medicine perspective. I recommend that she follow-up with her surgeon in [place] who did her total knee arthroplasty for further evaluation and planning for revision total knee arthroplasty. History of Present Illness Reason for Consultation: Left knee injury Attending Physician: Enrique Mendoza MD History of Present Illness Ms. Lindquist is a 66-year old female who injured her left knee during a ground- level fall at home on 08/29. She has a history of a total knee arthroplasty in place on that knee. She does not recall exactly when it was done, or by who, or by what orthopedic group. She knows that it was done in [place]. She has had persistent pain and difficulty with bearing weight on that left leg since the injury. Allergies Allergy/AdvReac Type Severity Reaction Status Date / Time fentanyl Allergy Severe RASH Verified 08/31/21 13:28 Cephalosporins Allergy Mild RASH TO Verified 08/31/21 13:28 KEFLEX grass pollen Allergy Mild Sneezing Verified 08/31/21 19:39 tree and shrub pollen Allergy Mild Sneezing Verified 08/31/21 19:39 methylprednisolone AdvReac Intermediate DIZZY;RAPID Verified 08/31/21 13:28 HEART RATE Home Medications Medication Instructions Recorded Confirmed Type clonazepam 0.5 mg tablet 0.5 mg PO TID 08/14/18 08/31/21 History esomeprazole magnesium 40 mg 40 mg PO QAM 08/14/18 08/31/21 History capsule,delayed release furosemide 40 mg tablet 40 mg PO DAILY PRN 08/14/18 08/31/21 History metformin 500 mg tablet 500 mg PO BID 08/14/18 08/31/21 History montelukast 10 mg tablet 10 mg PO HS PRN 08/14/18 08/31/21 History baclofen 10 mg tablet 10 mg PO Q8H PRN #10 tab 01/29/21 08/31/21 Rx fluoxetine 40 mg capsule 40 mg PO DAILY 08/29/21 08/31/21 History hydrocodone 5 mg-acetaminophen 325 1 tab PO Q6H PRN #30 tab 08/29/21 08/31/21 Rx mg tablet hydroxyzine HCl 25 mg tablet 25 mg PO BID 08/29/21 08/31/21 History lamotrigine 200 mg tablet 300 mg PO QPM 08/29/21 08/31/21 History mirtazapine 15 mg tablet 15 mg PO HS 08/29/21 08/31/21 History Patient History Medical History Anxiety Asthma Bipolar disorder Chronic back pain Depression Diabetes Heart disease Lumbar stenosis (05/27/14) Migraine Osteoarthritis, knee Surgical History History of back surgery History of cervical spinal arthrodesis History of cholecystectomy History of hysterectomy History of lumbar fusion History of shoulder surgery Left History of total knee arthroplasty Family History Father Hypertension Sister Cancer Other Asthma Heart disease No family history of adverse response to anesthesia No family history of bleeding disorder Social History Smoking Status: Unknown if ever smoked Second Hand Exposure: Yes; Hx Alcohol Use: No Hx Substance Use: No Preferred Language: Barbadian Communication Ability: Effective [employer]fre[employer] 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 She does have some swelling and a palpable effusion on that knee. She has pain with range of motion. Compartments are soft and compressible. Intact ankle and toe dorsiflexion and plantarflexion. Sensations intact to light touch. Foot is warm and well-perfused. Results & Data ([facility]) Vital Signs (Past 12 Hours) Vital Signs Temp Pulse Resp BP Pulse Ox 09/02/21 07:41 36.7 C 87 20 141/[address] scan of the left knee was reviewed. It shows a tibial plateau periprosthetic fracture around a total knee arthroplasty. There is collapse of the anterior cortex of the tibial plateau, with extension deformity of the tibial component of the total knee arthroplasty. There is a nondisplaced fracture line extending along the posterior tibial cortex just distal to the stem of the tibial component.
[2021-09-02] MEDS: LIDOCAINE 5% 1 PATCH TD SCH (12:35)
[2021-09-02] MEDS: HYDROmorphone INJ 0.5 MG/0.5 ML SYR IV PRN ×2 (14:25→22:00)
[2021-09-02] MEDS: ASPIRIN 325 MG ECTAB PO SCH (15:56)
[2021-09-02] MEDS: MIRTAZAPINE TAB 15 MG TAB PO SCH (21:31)
[2021-09-02] MEDS: lamoTRIgine 100 MG TAB PO SCH (21:31)
[2021-09-03] MEDS: FLUoxetine HCL 20 MG CAP PO SCH (09:13)
[2021-09-03] MEDS: PANTOprazole 40 MG TAB PO SCH (09:13)
[2021-09-03] MEDS: ASPIRIN 325 MG ECTAB PO SCH (09:15)
[2021-09-03] MEDS: INSULIN ASPART 100 UNITS/ML 3 ML PEN SC SCH ×4 (09:18→20:32)
[2021-09-03] MEDS: clonazePAM 0.5 MG TAB PO SCH ×3 (09:30→20:50)
[2021-09-03] MEDS: LIDOCAINE 5% 1 PATCH TD SCH (09:41)
[2021-09-03] MEDS ORDERED: IRON SUCROSE 300 MG in SODIUM CHLORIDE 0.9% 250 ML IV ONE (10:00)
--- NOTE | 2021-09-03 10:52 | Pharmacy Report ---
Pharmacy Glycemic Short Note 2 - Date of Service September 03, 2021 - Glycemic Short BSG Results (Last 24 hours): 09/02/21 09/02/21 09/02/21 12:08 17:15 21:17 POC Glucose 115 H 126 H 128 H 09/03/21 08:14 POC Glucose 119 H OUTPATIENT ANTIDIABETIC REGIMEN: * metformin 500 mg BID ASSESSMENT: 09/03/21 * Patient's BSGs yesterday were [phone] mg/dL. Patient received no insulin. * Restart metformin as surgery will not occur. * Continue Novolog. Background * Ms Lindquist is a 66 y/o F with a PMH of T2DM well controlled on 1 oral agent who presents with orthopedic fracture. * Patient is currently NPO for potential procedure. * BSGs have been 98 and 95 mg/dL today. * Novolog weight-based stress of 1 (due to body habitus) for now. * Monitor closely in case steroids are given during procedure. PLAN FOR INPATIENT GLYCEMIC CONTROL: * Resume metformin * Basal insulin * NONE * Bolus insulin * NovoLog per scale ACHS or Q6hrs while NPO * Goal Range: Low 110 mg/dL - High 140 mg/dL * Correction Factor: 35 mg/dL/unit * Nutritional / Prandial insulin per carb ratio of 1 unit per -- grams CHO consumed PLAN FOR DISCHARGE: * Patient's HbA1C is well within goal (currently is 6.5% whereas goal is < 7%) * Continue home regimen
[2021-09-03] MEDS: HYDROmorphone INJ 0.5 MG/0.5 ML SYR IV PRN ×2 (12:25→19:27)
[2021-09-03] MEDS: hydrOXYzine HCl 25 MG TAB PO SCH ×2 (15:53→20:50)
--- NOTE | 2021-09-03 16:35 | Hospitalist Progress Note ---
Date of Service September 03, 2021 Assessment & Plan (1) Tibial plateau fracture, left: Plan: Due to the patient's clinical presentation and imaging she will be admitted to the hospital proceeding as follows: Analgesics will be provided Orthopedics will be consulted for necessary intervention for her left knee fracture. The treating emergency room physician is already discussed with Dr. Jerry Perez who will see the patient in consultation. Further recommendations concerning this fracture will be at the discretion of the orthopedic surgeon CT Left LE IMPRESSION: 1. Periprosthetic tibial plateau fracture as detailed above. 2. Fracture of the fibular head. 3. There is associated lipohemarthrosis. pain control, antiemetics prn -- eating/drinking and moving her bowels Per PA from Ortho, as consulted Dr Fam initially however patient to follow with [facility] for this particular knee --> COnsult changed to Dr Wilson. Has not yet seen patient however possible patient to need surgical correction with [facility] surgeon. PA to alert of plans after they review with surgeons --> per orthopedic consult 09/02, patient able to be non-wt bearing LLE abd recommend continued use of immobilizer and d/c when medically stable Will order PT/OT evals. Plan for patient to see [facility] surgery on 09/09/2021. Would like to go to [facility] to live with friend on discharge. It is handicap- accessible with elevator and no stairs. working with patient to arrange. Will be in the hospital until Monday for home supplies (wheelchair and bedside commode) to be delivered. Scripts already given to CM for first thing Monday morning. 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 Protonix while inpatient (4) Seasonal allergies: Plan: continue montelukast (5) Anxiety: Plan: and hx of bipolar as below Continue Clonazepam 0.5mg TID, fluocetine 40mg daily, vistaril 25mg BID, lamotrigine 300mg PM, mirtazapine 15mg HS (6) Bipolar disorder: Plan: as above, continue home medications (7) Fall: Plan: 2 days prior to admission at [facility], stated to have fallen/tripped over rug No LOC but did hit here head -- CT Head done on 08/29 without acute finding - B12 wnl (8) Anemia: Plan: on admission, normocytic no blood/tarry appearance to stool noted and has been moving bowels iron studies with low iron/ferritin/trans% sat and did have reports of fatigue/sob on exertion Venofer 300mg x 1 on 09/03, repeat in AM, d/c on oral iron. Has issues w diarrhea and this may also help B12 & folate wnl CBC in Am Admission and Anticipated Discharge Date Admission Date: August 31, 2021 Subjective Doing well today. Pain is fairly well controlled. Reports no fevers/chills, chest pain, shortness of breath, abdominal pain, nausea, or vomiting. Physical Exam Constitutional: WD/WN, vitals as above Eyes: EOM intact bilaterally; no conjunctival abnormality ENMT: external ear and nose normal, oropharynx normal Neck: trachea midline, no thyromegaly normal visual inspection Respiratory: normal respiratory effort, lungs clear to auscultation no respiratory distress Cardiovascular: RRR, no murmur, no edema Gastrointestinal (Abdomen): Inspection/Auscultation: abdomen normal to inspection; abdomen not distended Musculoskeletal: no cyanosis or clubbing, extremities motor strength 5/5 Skin: no rashes, warm and dry Neurologic: moves all extremities and awake Psychiatric: Orientation: alert, oriented to person and cooperative Results & Data Results & Data ([facility]) Vital Signs (Past 12 Hours) Vital Signs Temp Pulse Resp BP Pulse Ox 09/03/21 16:03 36.8 C 86 16 139/81 92 09/03/21 07:24 36.9 C 88 16 138/90 95 PG Care Time/CCT Total # of Minutes Spent Total Time Spent with Patient: Total time spent is greater than 50% in coordination of care (as documented) at patient's floor/unit and/or counseling patient: Coding Level of Care Code 54106 Subseq Hosp Care Lvl 2 Diagnoses Tibial plateau fracture, left S82.142A Diabetes E11.9 Acid reflux K21.9 Seasonal allergies J30.2 Anxiety F41.9 Bipolar disorder F31.9 Fall W19.XXXA Anemia D64.9
[2021-09-03] MEDS: metFORMIN HCL 500 MG TAB PO SCH (16:59)
[2021-09-03] MEDS: lamoTRIgine 100 MG TAB PO SCH (20:50)
[2021-09-03] MEDS: MIRTAZAPINE TAB 15 MG TAB PO SCH (20:50)
[2021-09-03 22:56] LABS: Appearance Urine Clear (Clear); Bacteria Urine Automated Negative (Negative); Bilirubin Urine Negative (Negative); Blood Urine 2+ (Negative); Color Urine Yellow; Epithelial Cell Urine Auto >30 /lpf (0-5); Glucose Urine UA Negative (Negative); Ketones Urine Trace (Negative); Leukocyte Esterase Urine 1+ (Negative); Nitrite Urine Negative (Negative); Protein Urine Negative (Negative); RBC Urine Automated >30 /hpf (0-4); Specific Gravity Urine 1.028 (1.000-1.030); Urobilinogen Urine Negative (Negative); pH Urine 7.5 (4.5-7.5)
[2021-09-04] MEDS: HYDROCODONE/ACETAMOPHEN 5/325MG TAB PO PRN ×4 (01:05→21:50)
[2021-09-04 07:59] LABS: Hematocrit (blood only) 28.7 % (37-47); Hemoglobin 9.1 g/dL (12.0-16.0); Mean Corpuscular Hemoglobin 26.8 pg (25-34); Mean Corpuscular Hgb Conc 31.7 g/dL (32-36); Mean Corpuscular Volume 84.4 fL (80-100); Mean Platelet Volume 8.6 fL (7.4-10.4); Platelet Count 320 K/uL (130-400); RDW Coefficient of Variation 17.5 % (11.5-14.5); RDW Standard Deviation 51.6 fL (36.4-46.3); White Blood Count 7.79 K/uL (4.8-10.8)
[2021-09-04 08:45] LABS: BUN Creatinine Ratio 20.6 (10-20); Creatinine Clr Calc Pharmacy 108.3 ml/min; Est GFR (African American) 108.5 ml/min; Est GFR (Non-African American) 93.6 ml/min; Magnesium 1.9 mg/dl (1.8-2.4); Potassium 3.7 mmol/L (3.5-5.1)
[2021-09-04] MEDS: INSULIN ASPART 100 UNITS/ML 3 ML PEN SC SCH ×4 (08:47→22:00)
[2021-09-04] MEDS: metFORMIN HCL 500 MG TAB PO SCH ×2 (08:50→16:44)
[2021-09-04] MEDS: ASPIRIN 325 MG ECTAB PO SCH (08:50)
[2021-09-04] MEDS: hydrOXYzine HCl 25 MG TAB PO SCH ×2 (08:51→21:31)
[2021-09-04] MEDS: LIDOCAINE 5% 1 PATCH TD SCH (08:51)
[2021-09-04] MEDS: PANTOprazole 40 MG TAB PO SCH (08:51)
[2021-09-04] MEDS: FLUoxetine HCL 20 MG CAP PO SCH (08:51)
[2021-09-04] MEDS: clonazePAM 0.5 MG TAB PO SCH ×3 (08:51→21:31)
[2021-09-04] MEDS: BACLOFEN 10 MG TAB PO PRN ×2 (09:02→21:50)
--- NOTE | 2021-09-04 15:00 | Hospitalist Progress Note ---
Date of Service September 04, 2021 Assessment & Plan (1) Tibial plateau fracture, left: Plan: Tibial Plateau Fracture, Left - Ortho consulted on admission. Ultimately patient will need to see [place] orthopedic surgery on 09/09/2021. Was seen on Ortho consult, patient to be nonweightbearing of the left lower extremity with continued use of immobilizer. Recommend intervention at time of hospitalization, recommended initial healing and follow-up at the 02/2022 [place] surgical appointment. Patient to be discharged to [facility] to live with a friend on discharge as this facility is handicap accessible with elevator no stairs, some logistics including ambulatory medical equipment being arranged by case management anticipate home supplies wheelchair/bedside commode available on Monday. CT left lower extremity:1. Periprosthetic tibial plateau fracture as detailed above.2. Fracture of the fibular head.3. There is associated lipohemarthrosis. Continue pain control, antiemetics Adequate p.o. 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 Pharmacy has been consulted for glycemic control Monitor BSGs -> adequate glycemic control (3) Acid reflux: Plan: Continue Protonix PPI formulary conversion while inpatient (4) Seasonal allergies: Plan: continue montelukast (5) Anxiety: Plan: and hx of bipolar as below Continue Clonazepam 0.5mg TID, fluocetine 40mg daily, vistaril 25mg BID, lamotrigine 300mg PM, mirtazapine 15mg HS (6) Bipolar disorder: Plan: as above, continue home medications (7) Fall: Plan: 2 days prior to admission at [facility], stated to have fallen/tripped over rug No LOC but did hit here head -- CT Head done on 08/29 without acute finding - B12 wnl (8) Anemia: Plan: on admission, normocytic no blood/tarry appearance to stool noted and has been moving bowels iron studies with low iron/ferritin/trans% sat and did have reports of fati an/sob on exertion Venofer 300mg x 1 on 09/03, repeat in AM, d/c on oral iron. Has issues w diarrhea and this may also help B12 & folate wnl CBC with uptrending hemoglobin Admission and Anticipated Discharge Date Admission Date: August 31, 2021 Subjective To bedside. Patient reports that she feels clinically unchanged, continues to have pain if she moves her leg but otherwise feels comfortable with no new symptoms. Denies fever, chills, sweats, chest pain, chest pressure, difficulty breathing. Comfortable on exam, reports she is where she is just waiting for medical equipment set up and discharge develops per [place], with follow-up appointment to orthopedic surgery in [place] this week. Review of Systems Review of Systems: All systems reviewed & are unremarkable except as noted in Subjective Physical Exam Physical Exam: general: A&Ox3. NAD. Cooperative. HEENT: Atraumatic, normocephalic. Pulm: CTAB A&P. -wheezes, -rales, -rhonchi. Symmetrical chest rise. No increase work of breathing. No respiratory distress. Cardiac: RRR, -mrg. Radial pulses intact and symmetrical. Abdominal: Nontender, nondistended, soft. BS present. Extremities: Left lower extremity immobilized, some pitting edema. Sensation to soft touch intact in feet bilaterally without asymmetry. Capillary refill intact in toes bilaterally. Ankle dorsiflexion/plantar flexion intact and ankles with good strength bilaterally. Results & Data Results & Data ([facility]) Vital Signs (Past 12 Hours) Vital Signs Temp Pulse Resp BP Pulse Ox 09/04/21 07:32 36.8 C 91 H 18 102/67 92 PG Care Time/CCT Total # of Minutes Spent Total Time Spent with Patient: Total time spent is greater than 50% in coordination of care (as documented) at patient's floor/unit and/or counseling patient: Coding Level of Care Code 61442 Subseq Hosp Care Lvl 1 Diagnoses Tibial plateau fracture, left S82.142A Diabetes E11.9 Acid reflux K21.9 Seasonal allergies J30.2 Anxiety F41.9 Bipolar disorder F31.9 Fall W19.XXXA Anemia D64.9
[2021-09-04] MEDS: lamoTRIgine 100 MG TAB PO SCH (21:31)
[2021-09-04] MEDS: MIRTAZAPINE TAB 15 MG TAB PO SCH (21:31)
[2021-09-05] MEDS: BACLOFEN 10 MG TAB PO PRN ×2 (06:01→20:47)
[2021-09-05] MEDS: HYDROCODONE/ACETAMOPHEN 5/325MG TAB PO PRN ×3 (06:01→20:47)
[2021-09-05] MEDS: ASPIRIN 325 MG ECTAB PO SCH (07:48)
[2021-09-05] MEDS: PANTOprazole 40 MG TAB PO SCH (07:48)
[2021-09-05] MEDS: metFORMIN HCL 500 MG TAB PO SCH ×2 (07:48→17:59)
[2021-09-05] MEDS: FLUoxetine HCL 20 MG CAP PO SCH (07:48)
[2021-09-05] MEDS: LIDOCAINE 5% 1 PATCH TD SCH (07:49)
[2021-09-05] MEDS: clonazePAM 0.5 MG TAB PO SCH ×3 (07:53→20:47)
[2021-09-05] MEDS: hydrOXYzine HCl 25 MG TAB PO SCH ×2 (08:02→20:47)
[2021-09-05] MEDS: INSULIN ASPART 100 UNITS/ML 3 ML PEN SC SCH ×4 (08:29→21:59)
--- NOTE | 2021-09-05 13:57 | Hospitalist Progress Note ---
Date of Service September 05, 2021 Assessment & Plan (1) Tibial plateau fracture, left: Plan: Tibial Plateau Fracture, Left - Ortho consulted on admission. Will need to see [place] orthopedic surgery on 09/09/2021. Was seen on Ortho consult, patient to be nonweightbearing of the left lower extremity with continued use of immobilizer. Recommend against intervention at time of hospitalization, recommended initial healing and follow- up at the 02/2022 [place] surgical appointment. Patient to be discharged to [facility] to live with a friend on discharge as this facility is handicap accessible with elevator no stairs, some logistics including ambulatory medical equipment being arranged by case management anticipate home supplies wheelchair/bedside commode available on Monday. CT left lower extremity:1. Periprosthetic tibial plateau fracture as detailed above.2. Fracture of the fibular head.3. There is associated lipohemarthrosis. Continue pain control, antiemetics Adequate p.o. 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 inpatient Pharmacy has been consulted for glycemic control Monitor BSGs -> adequate glycemic control (3) Acid reflux: Plan: Continue Protonix PPI formulary conversion while inpatient (4) Seasonal allergies: Plan: continue montelukast (5) Anxiety: Plan: and hx of bipolar as below Continue Clonazepam 0.5mg TID, fluocetine 40mg daily, vistaril 25mg BID, lamotrigine 300mg PM, mirtazapine 15mg HS (6) Bipolar disorder: Plan: as above, continue home medications (7) Fall: Plan: 2 days prior to admission at [facility], stated to have fallen/tripped over rug No LOC but did hit here head -- CT Head done on 08/29 without acute finding - B12 wnl (8) Anemia: Plan: on admission, normocytic no blood/tarry appearance to stool noted and has been moving bowels iron studies with low iron/ferritin/trans% sat and did have reports of fatigue/sob on exertion Venofer 300mg x 1 on 09/03, repeat in AM, d/c on oral iron. Has issues w diarrhea and this may also help B12 & folate wnl CBC stable during admission Admission and Anticipated Discharge Date Admission Date: August 31, 2021 Subjective Doing well, no pain at rest today. No fevers, chills, sweats. Working on getting additional medical equipment for home with her son. Pending dispo and supplies, anticipate available tomorrow. Review of Systems Review of Systems: All systems reviewed & are unremarkable except as noted in Subjective Physical Exam Physical Exam: General: A&Ox3. NAD. Cooperative. HEENT: Atraumatic, normocephalic. Visual acuity intact, hearing intact Pulm: Symmetrical chest rise. No increase work of breathing. No respiratory distress. Cardiac: RRR, -mrg. Radial pulses intact and symmetrical. Abdominal: Nontender, nondistended, soft. BS present. Extremities: Left lower extremity immobilized, some pitting edema. Contusion of medial/posterior proximal lower leg. No firmness, Neurovascularly intact. Sensation to soft touch intact in feet bilaterally without asymmetry. Capillary refill intact in toes bilaterally. Ankle dorsiflexion/plantar flexion intact and ankles with good strength bilaterally. Results & Data Results & Data ([facility]) Vital Signs (Past 12 Hours) Vital Signs Temp Pulse Resp BP Pulse Ox 09/05/21 07:32 36.5 C 84 18 138/82 93 PG Care Time/CCT Total # of Minutes Spent Total Time Spent with Patient: Total time spent is greater than 50% in coordination of care (as documented) at patient's floor/unit and/or counseling patient: Coding Level of Care Code 81363 Subseq Hosp Care Lvl 1 Diagnoses Tibial plateau fracture, left S82.142A Diabetes E11.9 Acid reflux K21.9 Seasonal allergies J30.2 Anxiety F41.9 Bipolar disorder F31.9 Fall W19.XXXA Anemia D64.9
[2021-09-05] MEDS: MIRTAZAPINE TAB 15 MG TAB PO SCH (20:47)
[2021-09-05] MEDS: lamoTRIgine 100 MG TAB PO SCH (20:48)
[2021-09-06] MEDS: HYDROCODONE/ACETAMOPHEN 5/325MG TAB PO PRN (07:54)
[2021-09-06] MEDS: FLUoxetine HCL 20 MG CAP PO SCH (07:57)
[2021-09-06] MEDS: clonazePAM 0.5 MG TAB PO SCH ×2 (07:57→13:51)
[2021-09-06] MEDS: ASPIRIN 325 MG ECTAB PO SCH (07:58)
[2021-09-06] MEDS: metFORMIN HCL 500 MG TAB PO SCH (07:58)
[2021-09-06] MEDS: LIDOCAINE 5% 1 PATCH TD SCH (07:59)
[2021-09-06] MEDS: PANTOprazole 40 MG TAB PO SCH (07:59)
[2021-09-06] MEDS: hydrOXYzine HCl 25 MG TAB PO SCH (08:02)
[2021-09-06] MEDS: BACLOFEN 10 MG TAB PO PRN (08:04)
[2021-09-06] MEDS: INSULIN ASPART 100 UNITS/ML 3 ML PEN SC SCH ×2 (08:37→12:35)
--- NOTE | 2021-09-06 16:49 | Discharge Summary ---
Date of Service September 06, 2021 Admission HPI Per Admitting Provider This is a 66-year-old female who presented to [facility] on 1225 after suffering a fall. Patient says that she was in [employer] when she tripped on a rug in the store. When the patient fell she struck her head as well as bend her left knee in an awkward position. She said that she did not lose consciousness. Following her fall she did not have any blurred vision or double vision. She also denies any nausea vomiting or abdominal pain. I questioned her about events preceding the fall and she specifically notes she merely tripped on a rug and did not experience any preceding chest pain, shortness of breath, lightheadedness, or syncopal episodes. After suffering a fall in addition to a slight headache the patient noted severe pain in her left knee so she presented to the [facility] emergency department on 08/29/2021.During her visit at the emergency department on [address] she [address] a [address] scan of the head that showed no acute intracranial pathology specifically no fractures or intracranial bleed. The patient had an x-ray of her left knee that showed evidence of an impacted tibial plateau fracture. There is also an intra-articular effusion noted. A chest x-ray was performed that showed no evidence of pneumonia, CHF, or rib fractures. Labs during this visit include a CBC her white blood cell count and platelet count both noted to be normal. Her hemoglobin and hematocrit were 11.5 and 35.7. Chemistry profile at that time showed sodium and potassium were both normal as were her BUN and creatinine. Patient also had an EKG that showed normal sinus rhythm with nonspecific T wave abnormalities but no changes indicative of acute ischemia were noted. The patient was ultimately discharged to home from the emergency department with a knee brace in place as well as a walker to aid with ambulatory needs. Patient represented back to [facility] today secondary to continued pain in her left knee that she describes as severe. She says that the pain is nearly constant and is exacerbated by almost any movement of this extremity. She also notes that since she cannot bear weight on this leg her right leg is increasingly sore and fatigued as she is having to ambulate with a walker. Currently the patient denies any chest pain or shortness of breath. She denies any headache or visual changes. She also denies any fever shakes or chills. Because of her ongoing symptomatology and her difficulty caring for self admission to the hospital has been requested. It is noteworthy mention that the patient has had bilateral knee replacements. She says that her knee replacements performed in 2014 and 2016, most recently by Dr. Jerry Perez of [facility] physician with orthopedics. Today in the emergency department the patient has not had any additional imaging. She did have a repeat CBC that showed white blood cell count and platelet count remain normal. Her hemoglobin and hematocrit are 9.4 and 29.2. Coagulation studies were checked and are all within normal limits. Chemistry profile showed sodium, potassium, BUN, and creatinine remained within the normal limits. A Covid test has been performed and is pending. I did question the patient that her functional status prior to this fall. Patient reports living in a one-story home so she does not really go up and down steps but notes that she can walk comfortably on a flat surface without any chest pain or shortness of breath. She says she sometimes walks between a quarter and 1/2 mile to get her mail each day and feels prior to her knee injury was able to do this without any difficulty. She does report smoking 1/2 pack cigarettes a day for several years but quit 6 to 7 years ago. She did have 2 sisters at both suffered heart attacks in their late 50s and early 60s. She reports having a stress test "years ago" and to the best of her knowledge was unremarkable for ischemia. In addition the patient reports that she is a diabetic for which she takes oral medicine. I asked the patient about her COVID-19 status and she said that she did receive the [employer] vaccine approximately 2 months ago. At the time of my visit with the patient she was resting comfortably in bed and was in no distress. Principal Diagnosis Left tibial plateau fracture Discharge Exam Constitutional WD/WN, vitals as above Eyes EOM intact bilaterally; no conjunctival abnormality ENMT external ear and nose normal, oropharynx normal Neck trachea midline, no thyromegaly normal visual inspection Respiratory normal respiratory effort, lungs clear to auscultation no respiratory distress Cardiovascular RRR, no murmur, no edema Gastrointestinal (Abdomen) Inspection/Auscultation: abdomen normal to inspection; abdomen not distended Musculoskeletal no cyanosis or clubbing, extremities motor strength 5/5 Skin no rashes, warm and dry Neurologic moves all extremities and awake Psychiatric Orientation: alert, oriented to person and cooperative Discharge Data Allergies Allergy/AdvReac Type Severity Reaction Status Date / Time fentanyl Allergy Severe RASH Verified 08/31/21 13:28 Cephalosporins Allergy Mild RASH TO Verified 08/31/21 13:28 KEFLEX grass pollen Allergy Mild Sneezing Verified 08/31/21 19:39 tree and shrub pollen Allergy Mild Sneezing Verified 08/31/21 19:39 methylprednisolone AdvReac Intermediate DIZZY;RAPID Verified 08/31/21 13:28 HEART RATE Consultations 08/31/21 13:18 ED Decision to Admit Stat 08/31/21 13:52 Consult Orthopedic Surgery Routine Ordered Studies 08/31/21 14:42 CT tib/fib LT wo con Urgent Hospital Course (1) Tibial plateau fracture, left: Due to the patient's clinical presentation and imaging she will be admitted to the hospital proceeding as follows: Analgesics will be provided Orthopedics will be consulted for necessary intervention for her left knee fracture. The treating emergency room physician is already discussed with Dr. Jerry Perez who will see the patient in consultation. Further recommendations concerning this fracture will be at the discretion of the orthopedic surgeon CT Left LE IMPRESSION: 1. Periprosthetic tibial plateau fracture as detailed above. 2. Fracture of the fibular head. 3. There is associated lipohemarthrosis. pain control, antiemetics prn -- eating/drinking and moving her bowels Per PA from Ortho, as consulted Dr Fam initially however patient to follow with [facility] for this particular knee --> COnsult changed to Dr Wilson. Has not yet seen patient however possible patient to need surgical correction with [facility] surgeon. PA to alert of plans after they review with surgeons --> per orthopedic consult 09/02, patient able to be non-wt bearing LLE abd recommend continued use of immobilizer and d/c when medically stable Will order PT/OT evals. Plan for patient to see [facility] surgery on 09/09/2021. Will live with son and [id number] for support. (2) Diabetes: Prior A1c 5.12 Aug 2018, repeat at 6.5 On metformin 500mg BID BLOW MOLDER -- on hold while inpatient Pharmacy has been consulted for glycemic control Monitor BSGs -> Stable at 100 - 120. (3) Acid reflux: on esomeprazole BLOW MOLDER Protonix while inpatient (4) Seasonal allergies: continue montelukast (5) Anxiety: and hx of bipolar as below Continue Clonazepam 0.5mg TID, fluocetine 40mg daily, vistaril 25mg BID, lamotrigine 300mg PM, mirtazapine 15mg HS (6) Bipolar disorder: as above, continue home medications (7) Fall: 2 days prior to admission at [facility], stated to have fallen/tripped over rug No LOC but did hit here head -- CT Head done on 08/29 without acute finding - B12 wnl (8) Anemia: on admission, normocytic no blood/tarry appearance to stool noted and has been moving bowels iron studies with low iron/ferritin/trans% sat and did have reports of fatigue/sob on exertion Venofer 300mg x 1 on 09/03, repeat in AM, d/c on oral iron. Has issues w diarrhea and this may also help B12 & folate wnl CBC stable. Total Time Total Time Spent Total Time Spent (In Minutes): 35 Discharge Plan Discharge Items Patient Disposition: Home - Home Health Services Reason For Visit: KNEE FX Discharge Diagnosis: Knee fracture by your prior knee replacement Activity: Resume your previous activity Non-emergency contact: Primary Care Provider and Surgeon Call non-emergency contact if: your symptoms worsen Follow-up/Referrals: Shanelle Del Real CRNP [Primary Care Provider] - 09/08/21 9:15 am Diet: Carb Consistent or DM2 Addtl Attending Provider Instructions: Ms. Lindquist, You had a fall and ended up breaking your leg near your prior knee replacement on that left side. I'm so sorry! Unfortunately, the surgeons here felt like there is not much that anyone can do until that bone has had some time to heal. You will need to wear a knee immobilizer and not put any weight on the left leg until your surgeon at [facility] has the ability to see you. From there, you can plan on the next steps. To help you out at home, we have arranged a bedside commode and wheelchair to be delivered. I wish you a speedy recovery and hope you get your knee taken care of soon! We did start you on iron to help with some mild anemia. You can take this every other day to reduce GI side effects (stomach ache, constipation). It actually doesn't reduce the absorption at all and is just as good as taking it every day. Pending Studies at Discharge: No Stand-Alone Forms: My [facility], Smoking Cessation Medications and DC Order Prescriptions: New ferrous sulfate [iron] 325 mg (65 mg iron) tablet 325 mg PO Q OTHER DAY Qty: 30 RF: 0 Continued furosemide 40 mg tablet 40 mg PO DAILY PRN (Reason: Fluid Retention) RF: 0 metformin 500 mg tablet 500 mg PO BID RF: 0 clonazepam 0.5 mg tablet 0.5 mg PO TID RF: 0 esomeprazole magnesium 40 mg capsule,delayed release(DR/EC) 40 mg PO QAM RF: 0 montelukast 10 mg tablet 10 mg PO HS PRN (Reason: Allergy Symptoms) RF: 0 lamotrigine 200 mg tablet 300 mg PO QPM RF: 0 hydroxyzine HCl 25 mg tablet 25 mg PO BID RF: 0 mirtazapine 15 mg tablet 15 mg PO HS RF: 0 fluoxetine 40 mg capsule 40 mg PO DAILY RF: 0 hydrocodone-acetaminophen 5-325 mg tablet 1 tab PO Q6H PRN (Reason: pain) Qty: 30 RF: 0 baclofen 10 mg tablet 10 mg PO Q8H PRN (Reason: spasms) Qty: 10 RF: 0 Discharge Orders: Discharge Order (Routine); Ordered 09/06/21 Ordered By: Enirque Horowitz/Other Patient Handouts: Anemia Admission Data Admit Date/Time: 08/31/21 13:52 Attending Provider: Enrique Mendoza Admit Provider: Obed Brownlee Primary Care Provider: Shanelle Del Real Other Providers: Rory Nieto ; Corbin Wilson ; Enrique Mendoza Other Interventions: Discharge Summary Assessment (RN) Last Done: 09/06/21 12:03 Coding Level of Care Code D/C DAY MANAGEMENT >30 MINS Diagnoses Tibial plateau fracture, left S82.142A Diabetes E11.9 Acid reflux K21.9 Seasonal allergies J30.2 Anxiety F41.9 Bipolar disorder F31.9 Fall W19.XXXA Anemia D64.9
== END 2021-09-06 14:30 | disposition home health service (06) | DRG 563 ==
LOC: ED 12:05 → EDINP 13:52 → SUATTDRO 13:52 → 3N 17:12

== ENCOUNTER 2025-01-07 13:25 | Inpatient (IN) ==
--- NOTE | 2025-01-07 13:51 | Emergency Department Note ---
Impression & Plan Recurrent falls, Dizziness, Weakness ED Provider Note NAME: DEE MOBLEY AGE: 69 SEX: F : 1955 ARRIVES VIA: Walk-In INFORMANT: Patient ED PROVIDER(S): Camden Bartlett DO CHIEF COMPLAINT: dizzy HPI: Patient is a 61-year-old female with a past medical history of bipolar disease, hypertension, hyperlipidemia, migraine who presents to the ER for dizziness. This has been present constantly for the past month. She has been unable to really walk. She has fallen 4-5 times in the past month. She just fell again last night. She had to have EMS get her up. 's having trouble managing her. She admits to a mild headache from the falls. She does note that she also has some subtle right arm weakness which has been present for the past month as well. ADDITIONAL HISTORY OBTAINED: provides additional history and notes that patient has been falling often. She notes that she did not hit her head. Chronic Medical/Social Conditions Affecting Care: Per HPI PAST MEDICAL HISTORY:See Below PAST SURGICAL HISTORY:See Below FAMILY HISTORY:See Below SOCIAL HISTORY:See Below HOME MEDICATIONS:See Below ALLERGIES:See Below VITALS:See Below PHYSICAL EXAMINATION: GENERAL: Sitting up in bed, alert, well appearing, well nourished, no distress, non-toxic EYE EXAM: normal conjunctiva. PERRL and EOM's grossly intact. OROPHARYNX: no exudate, no erythema, lips, buccal mucosa, and tongue normal and mucous membranes are moist NECK: supple, no nuchal rigidity, no adenopathy, non-tender LUNGS: Clear to auscultation. Normal chest wall mechanics HEART: no murmurs, S1 normal and S2 normal ABDOMEN: abdomen soft, non-tender, normo-active bowel sounds, no masses, no rebound or guarding. BACK: Back is symmetrical on inspection and there is no deformity, no midline tenderness, no CVA tenderness. SKIN: no rashes and no bruising UPPER EXTREMITIES: upper extremities are grossly normal. LOWER EXTREMITIES: No pitting edema. NEURO EXAM: Normal sensorium, cranial nerves II-XII intact, normal speech, no weakness of arms, no weakness of legs. No drift. Finger to nose intact. Gross sensation intact. MEDICAL DECISION MAKING: Patient is a 69-year-old female who presents ER for the above-stated complaint. IV was established and blood work was obtained. Labs show no significant leukocytosis or anemia. BMP shows a slightly elevated glucose at 104. LFTs bilirubin was unremarkable. TSH was normal. Lipase was normal. CTA of the head neck showed no acute pathology. Chest x-ray was unremarkable. EKG was nondiagnostic. Her exam was intact. She notes that she feels uncomfortable going home and she been very unsteady and do favor she will benefit from PT OT. Discussed case with the hospitalist for further evaluation management treatment. Consults/Care Managements Discussions: Per [facility] Triage Nursing notes reviewed. Limited review of prior medical records performed Vital Signs: reviewed and remarkable for no significant abnormalities Differential diagnosis: Differential Diagnosis includes but is not limited to ischemic Stroke, hemorrhagic stroke, bells palsy, mass, neoplasm, migraine headache, seizure, subarachnoid hemorrhage, TIA, and transient global amnesia. ER treatment provided: See below Diagnostics interpreted by me include EKG and cardiac monitoring as listed below: -Cardiac Monitoring: An order was placed for continuous cardiac monitoring. The monitor shows a rate of 90 with sinus rhythm. -ECG: Sinus rhythm rate 89 Normal axis No PVCs QTc 486 -Laboratory studies:Interpreted by me as stated above in MDM and shown below. Imaging studies: Xrays: As interpreted by me: Portable AP upright 1 view of the chest shows no focal infiltrate CTs show: CTA of head and neck showed no acute pathology per radiology Procedures:none Critical Care: None Past Med/Surg History Problem List (Updated 01/07/25 @ 17:58 by Camden Bartlett DO) Weakness (Acute) Dizziness (Acute) Recurrent falls (Acute) Dizziness Recurrent falls Ambulatory dysfunction Chronic fatigue Cervicalgia Low back pain Adjustment disorder with mixed anxiety and depressed mood Lyme disease Bipolar II disorder Other low back pain Essential hypertension Other migraine, not intractable, with status migrainosus Hyperlipidemia Anemia Periprosthetic fracture around internal prosthetic left knee joint, initial encounter Fall Tibial plateau fracture, left (Acute) Hypertrophy of both inferior nasal turbinates Acid reflux Seasonal allergies Chronic back pain (Chronic) Heart disease (Chronic) Bipolar disorder (Chronic) Anxiety (Chronic) Asthma (Chronic) Diabetes (Chronic) Migraine (Chronic) Medical History (Updated 01/07/25 @ 17:58 by Camden Bartlett DO) PTSD (post-traumatic stress disorder) SANTY (generalized anxiety disorder) Pain in unspecified joint Localized swelling, mass and lump, lower limb, bilateral Other hypertrophic osteoarthropathy, multiple sites Pain in right hip Pain in right knee Pain in right shoulder History of falling Unspecified fracture of left lower leg, sequela Dizziness and giddiness Overactive bladder Generalized edema Otitis media, unspecified, right ear Depression Surgical History (Updated 12/29/23 @ 11:46 by Jaymie Dos Santos) Presence of unspecified artificial knee joint History of cholecystectomy History of shoulder surgery Left History of back surgery Family History Father Hypertension Sister Cancer Other Asthma Heart disease No family history of adverse response to anesthesia No family history of bleeding disorder Social History Smoking Status: Former smoker Second Hand Exposure: Yes; Hx Alcohol Use: No Hx Substance Use: No Preferred Language: Stateless Communication Ability: Effective 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: No Beliefs That Will Affect Care: None marital status: / Current Living Situation: Alone Feels Safe at Home: Yes Assistive Devices: Walker Allergies Allergies Allergy/AdvReac Type Severity Reaction Status Date / Time fentanyl Allergy Severe RASH Verified 01/07/25 16:45 Cephalosporins Allergy Mild RASH TO Verified 01/07/25 16:45 KEFLEX grass pollen Allergy Mild Sneezing Verified 01/07/25 16:45 tree and shrub pollen Allergy Mild Sneezing Verified 01/07/25 16:45 methylprednisolone AdvReac Intermediate DIZZY;RAPID Verified 01/07/25 16:45 HEART RATE Home Meds Home Medications Medication Instructions Recorded Confirmed metformin 500 mg tablet 500 mg PO BID 08/14/18 01/07/25 montelukast 10 mg tablet 10 mg PO HS PRN Allergy Symptoms 08/14/18 01/07/25 fluoxetine 40 mg capsule 40 mg PO DAILY 08/29/21 01/07/25 mirtazapine 15 mg tablet 15 mg PO HS 08/29/21 01/07/25 celecoxib 200 mg capsule (Celebrex) 200 mg PO BID 12/29/23 01/07/25 clonazepam 0.5 mg tablet 0.5 mg PO BID PRN Anxiety 12/29/23 01/07/25 esomeprazole magnesium 40 mg 40 mg PO DAILY 12/29/23 01/07/25 capsule,delayed release (Nexium) fluoxetine 20 mg capsule 20 mg PO DAILY 12/29/23 01/07/25 hydroxyzine HCl 25 mg tablet 50 mg PO BID PRN Anxiety 12/29/23 01/07/25 lamotrigine 200 mg tablet 200 mg PO DAILY 12/29/23 01/07/25 oxybutynin chloride 10 mg 10 mg PO QPM 12/29/23 01/07/25 tablet,extended release 24 hr sumatriptan succinate 25 mg tablet See Rx Instructions PO .COMPLEX 12/29/23 01/07/25 olanzapine 5 mg tablet (Zyprexa) 5 mg PO QPM 01/01/24 01/07/25 albuterol sulfate 90 mcg/actuation 2 puff inhalation DIRECTED PRN 01/07/25 01/07/25 aerosol inhaler Shortness Of Breath Or Wheezing furosemide 20 mg tablet (Lasix) 20 mg PO DAILY PRN Fluid Retention 01/07/25 01/07/25 lamotrigine 25 mg tablet 50 mg PO DAILY 01/07/25 01/07/25 Previous Rx's Medication Instructions Recorded baclofen 10 mg tablet 10 mg PO Q8H PRN spasms #10 tabs 01/29/21 meclizine 25 mg tablet 25 mg PO TID PRN dizziness #14 tabs 05/04/22 Results & Data (ED) Vital Signs Vital Signs - 24 hr 01/07/25 13:26 01/07/25 13:45 01/07/25 14:44 Temperature 36.7 C Temperature Source Oral Pulse Rate 105 H 94 H Pulse Rate [Right Finger] 86 Respiratory Rate 17 19 Respiratory Effort / Characteristics Non-Labored Spontaneous Non-Labored Spontaneous Respiratory Depth Normal Normal Respiratory Pattern Regular Blood Pressure 139/88 Blood Pressure [Right Arm] 118/86 Blood Pressure Mean 105 Blood Pressure Mean [Right Arm] 96 Blood Pressure Position Sitting Pulse Oximetry 97 91 Oxygen Delivery Method Room Air Room Air Sepsis Recent Fever Within 48 Hours No Sepsis New/Unexplained Change in Mental Status No Sepsis Action Taken by Nursing No Action Required 01/07/25 16:00 01/07/25 17:27 Temperature 36.9 C Temperature Source Oral Pulse Rate 83 Pulse Rate [Right Finger] 75 Respiratory Rate 20 20 Respiratory Effort / Characteristics Non-Labored Spontaneous Respiratory Depth Normal Respiratory Pattern Blood Pressure 131/87 Blood Pressure [Right Arm] 136/94 Blood Pressure Mean Blood Pressure Mean [Right Arm] 108 Blood Pressure Position Pulse Oximetry 98 94 Oxygen Delivery Method Room Air Room Air Sepsis Recent Fever Within 48 Hours Sepsis New/Unexplained Change in Mental Status Sepsis Action Taken by Nursing Laboratory Data 01/07/25 13:42 01/07/25 13:42 Lab Results 01/07/25 01/07/25 Range/Units 13:42 13:48 WBC 7.91 (4.8-10.8) K/ul RBC 5.23 (4.20-5.40) M/uL Hgb 15.0 (12.0-16.0) g/dl POC Hgb 16.0 (12.0-16.0) g/dl Hct 43.8 (37.0-47.0) % POC Hct 47 (37-47) % MCV 83.7 (80.0-100.0) fL MCH 28.7 (25.0-34.0) pg MCHC 34.2 (32.0-36.0) g/dL RDW Std Deviation 49.6 H (36.4-46.3) fL RDW Coeff of Gary 16.1 H (11.5-14.5) % Plt Count 290 (130-400) K/uL MPV 9.7 (9.4-12.4) fL Immature Gran % (Auto) 0.4 % Neut % (Auto) 59.1 % Lymph % (Auto) 29.3 % [place] % (Auto) 6.8 % Eos % (Auto) 3.5 % Baso % (Auto) 0.9 % Neut # (Auto) 4.67 (1.40-6.50) K/uL Lymph # (Auto) 2.32 (1.20-3.40) K/uL [place] # (Auto) 0.54 (0.11-0.59) K/uL Eos # (Auto) 0.28 (0.00-0.50) K/uL Baso # (Auto) 0.07 (0.00-0.20) K/uL Immature Gran # (Auto) 0.03 (0.01-0.20) K/uL POC Sodium 139 (135-144) mmol/L Sodium 139 (136-145) mmol/L POC Potassium 4.2 (3.3-5.0) mmol/L Potassium 4.0 (3.5-5.1) mmol/L POC Chloride 99 L (101-112) mmol/L Chloride 102 (98-107) mmol/L Carbon Dioxide 29 (21-32) mmol/L POC Total CO2 27 (24-31) mmol/L Anion Gap 8 (3-11) POC Anion Gap 19.0 (16-25) mmol/L POC BUN 4 L (7-18) mg/dl BUN 5 L (6-23) mg/dl Creatinine 0.71 (0.6-1.2) mg/dl POC Creatinine 0.8 (0.6-1.3) mg/dl Est Cr Clr Drug Dosing 86.0 ml/min eGFR 92.56 BUN/Creatinine Ratio 7.0 L (10-20) Glucose 104 H (70-99(Fasting)) mg/dl POC Glucose (other) 104 H (70-99) mg/dl Calcium 9.5 (8.6-10.3) mg/dl POC Ioniz Calcium Joie 1.16 (1.12-1.32) mmol/l Total Bilirubin 0.5 (0.2-1.0) mg/dl AST 27 (13-39) U/L ALT 18 (7-52) U/L Alkaline Phosphatase 79 (34-104) U/L Troponin I High Sens < 2.3 (0-14) pg/ml Total Protein 7.6 (6.0-8.3) gm/dl Albumin 4.5 (3.4-5.0) gm/dl Globulin 3.1 (2.5-4.0) gm/dl Albumin/Globulin Ratio 1.5 (0.9-2) Lipase 8 L (11-82) U/L TSH 2.101 (0.300-4.500) uIu/ml Administered Medications Discontinued Medications Clonazepam (Clonazepam 0.5 Mg Tab) 0.5 mg PO NOW STA Stop: 01/07/25 17:02 Last Admin: 01/07/25 17:05 Dose: 0.5 mg Documented By: MARCK Sodium Chloride (Nss) 1,000 mls @ 999 mls/hr IV .Q1H1M ONE Stop: 01/07/25 16:21 Last Infusion: 01/07/25 16:31 Dose: Infused Documented By: Admin: 01/07/25 15:22 Dose: 999 mls/hr Documented By: LUKE Ioversol (Optiray 320 125ml) 115 ml IV ONCE ONE Stop: 01/07/25 14:04 Last Admin: 01/07/25 14:04 Dose: 115 ml Documented By: STEVIE Imaging Data Radiologist's Impression: Chest X-Ray 01/07/25 13:33 XR chest 1V portable CLINICAL HISTORY: Chest pain, nonspecific COMPARISON STUDY: 05/04/2022 FINDINGS: Heart size and pulmonary vasculature are normal. No effusion or consolidation. No pneumothorax. IMPRESSION: No acute findings. ACT 112: Negative or not required by law. Electronically signed by: Miguel Perez M.D. 01/07/2025 2:29 PM Head CTA 01/07/25 13:44 CT angio head wo/w CLINICAL HISTORY: Dizzy. COMPARISON STUDY: Head CT and CTA of the head May 04, 2022. TECHNIQUE: Unenhanced and arterial phase imaging of the head was performed. Intravenous injection of 115 cc of Optiray 320 IV was uneventful. Sagittal and coronal reformats were viewed as well as maximal intensity projections on an independent 3-D workstation. A dose lowering technique was utilized adhering to the principles of ALARA. FINDINGS: No acute intracranial hemorrhage, midline shift or mass effect is present. Ventricular system is stable. Basal cisterns are patent. There are no extra axial collections. Goodman-white differentiation is preserved. There are no findings to suggest acute dural sinus thrombosis or acute territorial infarct. The bilateral M1, M2, A1 and A2 segments are patent. No intracranial aneurysm, stenosis or dissection is present. Posterior circulation is also intact. IMPRESSION: 1. No acute intracranial findings. 2. No intracranial vessel occlusion. No intracranial aneurysm. ACT 112: Negative or not required by law. Electronically signed by: Nitin Orona M.D. 01/07/2025 2:31 PM Neck CTA 01/07/25 13:44 CT angio neck with con CLINICAL HISTORY: dizzy cant wlk. COMPARISON STUDY: 05/04/2022 TECHNIQUE: Following the IV administration of 150 of Optiray, CT angiogram of the neck was performed from the aortic arch to the skull base. Images are reviewed in the axial, sagittal, and coronal planes. 3-D MIPS images are created and assessed. IV contrast was administered without complication. All measurements were calculated based on NASCET criteria. A dose lowering technique was utilized adhering to the principles of ALARA. CT DOSE: 997.5 mGy.cm FINDINGS: There is spray and motion artifact inferiorly. The right vertebral artery is dominant and the left vertebral artery is diminutive beyond PICA, stable anatomic variant. No significant narrowing or occlusion seen at the common or internal carotid or vertebral arteries bilaterally. Stable tiny thyroid nodules. Stable diffuse degenerative changes at the cervical spine. IMPRESSION: No significant arterial narrowing or occlusion seen at the neck. ACT 112: Negative or not required by law. The above report was generated using voice recognition software. It may contain grammatical, syntax or spelling errors. Electronically signed by: Miguel Perez M.D. 01/07/2025 2:28 PM Discharge Plan Visit Data Chief Complaint: Dizziness Stated Complaint: DIZZINESS, HARD TO WALK ED Provider: Camden Bartlett Discharge Problem: Recurrent falls, Dizziness, Weakness Condition: Fair Discharge Instructions Interventions: ED Discharge Assessment Last Done: 01/07/25 17:27 Forms Stand Alone Forms: [employer] Prescriptions Prescriptions: No Action sumatriptan succinate 25 mg tablet See Rx Instructions PO .COMPLEX Rx Instructions: take 1 tab at onset of headache; if no relief may repeat 1 tab after at least 2 hrs; max = 4 tabs/24 hr PO esomeprazole magnesium [Nexium] 40 mg capsule,delayed release(DR/EC) 40 mg PO DAILY fluoxetine 20 mg capsule 20 mg PO DAILY Rx Instructions: TOTAL DOSE 60 MG--TAKES WITH 40 MG CAP. oxybutynin chloride 10 mg tablet extended release 24hr 10 mg PO QPM celecoxib [Celebrex] 200 mg capsule 200 mg PO BID olanzapine [Zyprexa] 5 mg tablet 5 mg PO QPM metformin 500 mg tablet 500 mg PO BID montelukast 10 mg tablet 10 mg PO HS PRN (Reason: Allergy Symptoms) clonazepam 0.5 mg tablet 0.5 mg PO BID PRN (Reason: Anxiety) Rx Instructions: PER PT "TAKE EVERY DAY BID". mirtazapine 15 mg tablet 15 mg PO HS Rx Instructions: UNABLE TO VERIFY THIS MED, NOT ON EXT MED HX. fluoxetine 40 mg capsule 40 mg PO DAILY Rx Instructions: TOTAL DOSE 60 MG--TAKES WITH 20 MG CAP. hydroxyzine HCl 25 mg tablet 50 mg PO BID PRN (Reason: Anxiety) Rx Instructions: PER PT "USUALLY TAKE AT HS". lamotrigine 200 mg tablet 200 mg PO DAILY Rx Instructions: TOTAL DOSE 250 MG--TAKES WITH 2-25 MG TABS. meclizine 25 mg tablet 25 mg PO TID PRN (Reason: dizziness) Qty: 14 0RF baclofen 10 mg tablet 10 mg PO Q8H PRN (Reason: spasms) Qty: 10 0RF lamotrigine 25 mg tablet 50 mg PO DAILY Rx Instructions: TOTAL DOSE 250 MG--TAKES WITH 200 MG TAB. furosemide [Lasix] 20 mg Tablet 20 mg PO DAILY PRN (Reason: Fluid Retention) albuterol sulfate [ProAir HFA] 90 mcg/actuation Hfa Aerosol Inhaler 2 puff INHALATION DIRECTED PRN (Reason: Shortness Of Breath Or Wheezing) Referrals Referrals: Shanelle Del Real CRNP [Primary Care Provider] -
[2025-01-07 14:00] LABS: iSTAT Creatinine 0.8 mg/dl (0.6-1.3); iSTAT Ionized Calcium 1.16 mmol/l (1.12-1.32); iSTAT Potassium 4.2 mmol/L (3.3-5.0)
[2025-01-07 14:02] LABS: Basophils # (auto) 0.07 K/uL (0.00-0.20); Basophils % (auto) 0.9 %; Eosinophils # (auto) 0.28 K/uL (0.00-0.50); Eosinophils % (auto) 3.5 %; Hematocrit (blood only) 43.8 % (37.0-47.0); Immature Granulocytes # (auto) 0.03 K/uL (0.01-0.20); Immature Granulocytes % (auto) 0.4 %; Lymphocytes # (auto) 2.32 K/uL (1.20-3.40); Lymphocytes % (auto) 29.3 %; Mean Corpuscular Hemoglobin 28.7 pg (25.0-34.0); Mean Corpuscular Hgb Conc 34.2 g/dL (32.0-36.0); Mean Corpuscular Volume 83.7 fL (80.0-100.0); Mean Platelet Volume 9.7 fL (9.4-12.4); Monocytes # (auto) 0.54 K/uL (0.11-0.59); Monocytes % (auto) 6.8 %; Neutrophils # (auto) 4.67 K/uL (1.40-6.50); Neutrophils % (auto) 59.1 %; Platelet Count 290 K/uL (130-400); RDW Coefficient of Variation 16.1 % (11.5-14.5); RDW Standard Deviation 49.6 fL (36.4-46.3); Red Blood Count 5.23 M/uL (4.20-5.40); White Blood Count 7.91 K/ul (4.8-10.8)
[2025-01-07] MEDS: OPTIRAY 320 125ml IV ONE (14:04)
[2025-01-07 14:20] LABS: Alanine Aminotransferase 18 U/L (7-52); Albumin Globulin Ratio 1.5 (0.9-2); Albumin Level 4.5 gm/dl (3.4-5.0); Alkaline Phosphatase 79 U/L (34-104); Anion Gap 8 (3-11); Aspartate Aminotransferase 27 U/L (13-39); Bilirubin,Total 0.5 mg/dl (0.2-1.0); Blood Urea Nitrogen 5 mg/dl (6-23); Calcium 9.5 mg/dl (8.6-10.3); Carbon Dioxide 29 mmol/L (21-32); Chloride 102 mmol/L (98-107); Globulin 3.1 gm/dl (2.5-4.0); Glucose 104 mg/dl (70-99(Fasting)); Lipase 8 U/L (11-82); Sodium 139 mmol/L (136-145); Total Protein 7.6 gm/dl (6.0-8.3)
[2025-01-07 14:23] LABS: Troponin I High Sensitivity < 2.3 pg/ml (0-14)
--- NOTE | 2025-01-07 14:30 | CT Scan Report ---
CT angio neck with con CLINICAL HISTORY: dizzy cant wlk. COMPARISON STUDY: 05/04/2022 TECHNIQUE: Following the IV administration of 150 of Optiray, CT angiogram of the neck was performed from the aortic arch to the skull base. Images are reviewed in the axial, sagittal, and coronal plane s. 3-D MIPS images are created and assessed. IV contrast was administered without complication. All m easurements were calculated based on NASCET criteria. A dose lowering technique was utilized adherin g to the principles of ALARA. CT DOSE: 997.5 mGy.cm FINDINGS: There is spray and motion artifact inferiorly. The right vertebral artery is dominant and t he left vertebral artery is diminutive beyond PICA, stable anatomic variant. No significant narrowing or occlusion seen at the common or internal carotid or vertebral arteries bilaterally. Stable tiny t hyroid nodules. Stable diffuse degenerative changes at the cervical spine. IMPRESSION: No significant arterial narrowing or occlusion seen at the neck. ACT 112: Negative or not required by law. The above report was generated using voice recognition software. It may contain grammatical, syntax o r spelling errors. Electronically signed by: Miguel Perez M.D. 01/07/2025 2:28 PM
--- NOTE | 2025-01-07 14:30 | XRay Report ---
XR chest 1V portable CLINICAL HISTORY: Chest pain, nonspecific COMPARISON STUDY: 05/04/2022 FINDINGS: Heart size and pulmonary vasculature are normal. No effusion or consolidation. No pneumotho rax. IMPRESSION: No acute findings. ACT 112: Negative or not required by law. Electronically signed by: Miguel Perez M.D. 01/07/2025 2:29 PM
--- NOTE | 2025-01-07 14:32 | CT Scan Report ---
CT angio head wo/w CLINICAL HISTORY: Dizzy. COMPARISON STUDY: Head CT and CTA of the head May 04, 2022. TECHNIQUE: Unenhanced and arterial phase imaging of the head was performed. Intravenous injection of 115 cc of Optiray 320 IV was uneventful. Sagittal and coronal reformats were viewed as well as eliceo l intensity projections on an independent 3-D workstation. A dose lowering technique was utilized adh ering to the principles of ALARA. FINDINGS: No acute intracranial hemorrhage, midline shift or mass effect is present. Ventricular syst em is stable. Basal cisterns are patent. There are no extra axial collections. Goodman-white differentia tion is preserved. There are no findings to suggest acute dural sinus thrombosis or acute territorial infarct. The bilateral M1, M2, A1 and A2 segments are patent. No intracranial aneurysm, stenosis or dissection is present. Posterior circulation is also intact. IMPRESSION: 1. No acute intracranial findings. 2. No intracranial vessel occlusion. No intracranial aneurysm. ACT 112: Negative or not required by law. Electronically signed by: Nitin Orona M.D. 01/07/2025 2:31 PM
[2025-01-07] MEDS: SODIUM CHLORIDE 0.9% 1,000 ML IV ONE (15:22)
--- NOTE | 2025-01-07 15:55 | History & Physical Report ---
<Statement entered by Alice Dale MD - 01/07/25 18:34> I have reviewed vital signs, chart notes, labs and imaging. I have personally seen, evaluated and examined the patient. I have also discussed the management of the patient with the JOANNA and I agree with the exam findings documented in the history and physical examination and the documented assessment and plan unless otherwise stated below. Mrs. Lindquist is a 69-year-old who presents with subacute and worsening vertigo associated with multiple falls. She has fallen at least several times in the last few days including yesterday. This is despite use of a walker and hand rails she says she walks like she is drunk and her corroborates this. She does have a longstanding history of sinus/ear congestion but no acute issues with that. She takes Flonase. Meclizine used to support suppress her vertigo but no longer works very well. She does not have any tinnitus or hearing loss. She does not have any diplopia. She has some vision loss especially in her right eye air turning machine feeder recently told her there was some scarring and to wear glasses. She has slight peripheral neuropathy but only affects her great toes. She does not have an alcohol history. There have been issues with polypharmacy. My exam is notable for that she is alert oriented x 4 with normal speech extraocular movements are intact face is symmetric tongue is midline. Visual hodges are full bilaterally to confrontation. PERRL. She has no horizontal nystagmus beyond 1-2 beats. She has significant vertical torsional nystagmus that does not extinguish and is associated with onset of vertigo. She has mild dysmetria on bspihu-mnlh-mteeru more so on the left, heel-to-toe chung is reasonably good on either side and somewhat hampered by hip mobility and bilateral knee replacements. Strength in her right arm and shoulder has been impaired since a shoulder operation sounds like possibly a first rib resection. 4 extremities moving well sensation is intact to light touch both feet no ankle clonus. tympanic membrane on the right is intact shiny with some bulging consistent with serous effusion, tympanic membrane on the left is also intact appears to have some scarring and is more cloudy with probably some effusion. No evidence of otitis media either side. No significant earwax. A/P: Subacute and worsening vertigo, probably ataxic gait nystagmus exam is notable for purely vertical/torsional nystagmus that does not extinguish this is suggestive of central vertigo also her inability to ambulate is suggestive of central vertigo. I wonder about a chronic or subacute cerebellar stroke. Acoustic neuroma seems unlikely since no tinnitus or hearing loss. She has no history of multiple sclerosis. Peripheral vertigo still possible including eustachian tube dysfunction related to her ear effusions and chronic sinusitis. BPPV is possible since she does have onset of vertigo when she turns her head a certain way even in bed. Brain MRI is warranted at this time to evaluate for central causes she already had a head and neck CTA which ruled out any vertebrobasilar insufficiency trial decongestantsscheduled Afrin x 72 hours and continue her usual Flonase consider posterior column dysfunction however that would not cause vertigo so seems unlikely we will work on reducing her polypharmacy and order physical therapy/Occupational Therapy Date of Service January 07, 2025 Assessment & Plan (1) Ambulatory dysfunction: (2) Recurrent falls: (3) Dizziness: (4) Diabetes: (5) History of cervical spinal arthrodesis: Plan Mrs. Lindquist is a 69-year-old female who presented on 01/07 for recurrent falls due to dizziness. This has been ongoing for several months, with an acute worsening over the past 3 weeks. #Dizziness/recurrent falls Patient denies h/o stroke or strokelike symptoms such as slurred speech, facial droop, word finding difficulty) However, she does endorse "weakness" in her RUE and RLE; unclear if this is due to history of prior neck/knee surgeries Head/neck CTA without acute findings Brain MRI ordered, pending Etiology unclear on arrival; however, DDx includes polypharmacy, cerebellar stroke, orthostasis, vertigo (refractory to meclizine use), and benzodiazepine usage (on Klonopin BID), among other etiologies In regard to polypharmacy, felt that many of her current medications could be contributing to dizziness/falls Hold oxybutynin, baclofen Reduce meclizine to 12.5 mg p.o. TID PRN; ? Orthostasis d/t scheduled meclizine use TID Orthostatic vitals ordered, pending Initiate Aspirin 81mg daily PT/OT evaluations appreciated Fall precautions A.m. CBC, BMP, fasting lipid panel, A1c #Diabetes Last A1c at 6.5% on 08/22/2021 Hold metformin SSI; with target BSG range 110-140mg/dL, CF 50, carb ratio 15 T2DM diet BSG ACHS Adjust regimen as needed AM A1c #Anxiety Continue hydroxyzine BID PRN Continue Klonopin for now (currently takes Klonopin BID) May decrease dosage to 0.25mg p.o. BID if refractory to above treatments #Depression Continue fluoxetine #Type II Bipolar Continue olanzapine, lamotrigine #H/o migraines Sumatriptan PRN Disposition: Obs - Admit to [facility] telemetry VTE PPx: Lovenox 40 mg SQ q24h History of Present Illness Chief Complaint: Dizziness, ambulatory function, recurrent falls Primary Care Provider: JENNY Ortiz Mrs. Lindquist is a 69-year-old female with PMH of bipolar 2 disorder, Lyme disease, diabetes, anxiety, asthma, R TKA, migraines, cervicalgia, and vertigo. She presented on 01/07 for recurrent falls due to dizziness over the past several months. However, patient reports that has been getting worse over the past 3 weeks, and yesterday was particularly bad to the point where it started to scare her. Patient lives by herself. She reports that she can follow up to 3-4 times per day. Normally, whenever she starts to feel dizzy, she tries to "throw herself" onto her nearest furniture, however yesterday she fell and hit the floor. No head strike. No LOC. Not on blood thinners. She was unable to get up on her own, and had to call the ambulance to help pick her back up. She also had to call an ambulance the week prior due to a fall. Patient has been taking meclizine 25 mg 3 times daily for her symptoms, but this has not been helping. Patient takes Klonipin twice daily for her anxiety (once at 8am and once at night), and she has been on this medication for many years. She did not take any meclizine today, but did take her regular morning medicine today. No recent change in medications. Her most recent change was that she was started on Ozempic 3 to 4 months ago; she has lost 40 pounds since this time (intentional). Patient manages her own medicine at home. Patient ambulates with a walker and a cane at baseline; cane while in the apartment, walker outside the apartment. She lives in an apartment building on the fourth floor, but does have an elevator. She does not need to take any steps. She does have a history of 2 knee replacements. She denies smoking, tobacco use, or any recent alcohol use. No prior history of stroke to her knowledge. She denies slurred speech, facial droop, or word finding difficulty. However, she does note that her right upper extremity and right lower extremity become "weak" at times. Additionally, she has had blurry vision over the past several months. She saw an eye doctor a couple weeks ago, and was told she would need to have another laser eye surgery; she was also told she had "scarring" in her right eye leading to some vision loss when looking right. Patient wears glasses at baseline. No tinnitus. She reports that she drinks lots of water. Patient's vitals are stable time admission. ED course: NSS 1000 mL IV ROS: Patient endorses sweating episodes during the day, headache (resolved; migraine x 4 days last week; attributes to h/o two discs taken out of the back of her neck), blurry vision (ongoing), heartburn/reflux, chest palpitations (attributes to intermittent anxiety), productive cough (ongoing for months; yellow sputum production), nausea, vomiting (yesterday morning; attributes to cough), RUE/RLE weakness, neuropathy in the feet from diabetes, and restless leg syndrome. Patient denies fever, chills, slurred speech, facial droop, confusion, word finding difficulty, photophobia, tinnitus, chest pain, pleuritic CP, SOB, abdominal pain, diarrhea, burning with urination, and changes in urinary/bowel habits. Allergies Allergy/AdvReac Type Severity Reaction Status Date / Time fentanyl Allergy Severe RASH Verified 01/07/25 16:45 Cephalosporins Allergy Mild RASH TO Verified 01/07/25 16:45 KEFLEX grass pollen Allergy Mild Sneezing Verified 01/07/25 16:45 tree and shrub pollen Allergy Mild Sneezing Verified 01/07/25 16:45 methylprednisolone AdvReac Intermediate DIZZY;RAPID Verified 01/07/25 16:45 HEART RATE Home Medications Medication Instructions Recorded Confirmed Type metformin 500 mg tablet 500 mg PO BID 08/14/18 01/07/25 History montelukast 10 mg tablet 10 mg PO HS PRN Allergy Symptoms 08/14/18 01/07/25 History baclofen 10 mg tablet 10 mg PO Q8H PRN spasms #10 tabs 01/29/21 01/07/25 Rx fluoxetine 40 mg capsule 40 mg PO DAILY 08/29/21 01/07/25 History mirtazapine 15 mg tablet 15 mg PO HS 08/29/21 01/07/25 History meclizine 25 mg tablet 25 mg PO TID PRN dizziness #14 tabs 05/04/22 01/07/25 Rx celecoxib 200 mg capsule (Celebrex) 200 mg PO BID 12/29/23 01/07/25 History clonazepam 0.5 mg tablet 0.5 mg PO BID PRN Anxiety 12/29/23 01/07/25 History esomeprazole magnesium 40 mg 40 mg PO DAILY 12/29/23 01/07/25 History capsule,delayed release (Nexium) fluoxetine 20 mg capsule 20 mg PO DAILY 12/29/23 01/07/25 History hydroxyzine HCl 25 mg tablet 50 mg PO BID PRN Anxiety 12/29/23 01/07/25 History lamotrigine 200 mg tablet 200 mg PO DAILY 12/29/23 01/07/25 History oxybutynin chloride 10 mg 10 mg PO QPM 12/29/23 01/07/25 History tablet,extended release 24 hr sumatriptan succinate 25 mg tablet See Rx Instructions PO .COMPLEX 12/29/23 01/07/25 History olanzapine 5 mg tablet (Zyprexa) 5 mg PO QPM 01/01/24 01/07/25 History albuterol sulfate 90 mcg/actuation 2 puff inhalation DIRECTED PRN 01/07/25 01/07/25 History aerosol inhaler Shortness Of Breath Or Wheezing furosemide 20 mg tablet (Lasix) 20 mg PO DAILY PRN Fluid Retention 01/07/25 01/07/25 History lamotrigine 25 mg tablet 50 mg PO DAILY 01/07/25 01/07/25 History Past Med/Surg History Problem List (Updated 01/07/25 @ 17:58 by Camden Bartlett DO) Weakness (Acute) Dizziness (Acute) Recurrent falls (Acute) Dizziness Recurrent falls Ambulatory dysfunction Chronic fatigue Cervicalgia Low back pain Adjustment disorder with mixed anxiety and depressed mood Lyme disease Bipolar II disorder Other low back pain Essential hypertension Other migraine, not intractable, with status migrainosus Hyperlipidemia Anemia Periprosthetic fracture around internal prosthetic left knee joint, initial encounter Fall Tibial plateau fracture, left (Acute) Hypertrophy of both inferior nasal turbinates Acid reflux Seasonal allergies Chronic back pain (Chronic) Heart disease (Chronic) Bipolar disorder (Chronic) Anxiety (Chronic) Asthma (Chronic) Diabetes (Chronic) Migraine (Chronic) Medical History (Updated 01/07/25 @ 17:58 by Camden Bartlett DO) PTSD (post-traumatic stress disorder) SANTY (generalized anxiety disorder) Pain in unspecified joint Localized swelling, mass and lump, lower limb, bilateral Other hypertrophic osteoarthropathy, multiple sites Pain in right hip Pain in right knee Pain in right shoulder History of falling Unspecified fracture of left lower leg, sequela Dizziness and giddiness Overactive bladder Generalized edema Otitis media, unspecified, right ear Depression Surgical History (Updated 12/29/23 @ 11:46 by Jaymie Dos Santos) Presence of unspecified artificial knee joint History of cholecystectomy History of shoulder surgery Left History of back surgery Family History Father Hypertension Sister Cancer Other Asthma Heart disease No family history of adverse response to anesthesia No family history of bleeding disorder Social History Smoking Status: Former smoker Second Hand Exposure: Yes; Hx Alcohol Use: No Hx Substance Use: No Preferred Language: Vietnamese Communication Ability: Effective Equipment Sterilizer Required: No Beliefs That Will Affect Care: None marital status: / Current Living Situation: Alone Feels Safe at Home: Yes Assistive Devices: Walker Review of Systems Review of Systems: See HPI above Physical Exam Physical Exam: General: no acute distress; pleasant affect; friend at bedside; non-toxic appearing; cooperative; SpO2 98% on RA HEENT: normocephalic, atraumatic; no scleral icterus; PERRLA w/ EOMs intact, however patient reports that she has "difficulty" with the right field of vision; no nystagmus appreciated; hearing intact; patient demonstrates ability to smile, frown, and lift eyebrows without unilateral deficits; patient demonstrates ability to protrude and wiggle tongue bilaterally without unilateral deficits; Neck: supple; no lymphadenopathy; trachea midline; patient demonstrates ability to shrug shoulders against resistance without unilateral deficits, however, she does report pain when she looks to the left (no dizziness) Skin: warm, dry without signs of tenting; no cyanosis; no rashes, bruising, les ions, or erythema noted CV: chest wall NTP; RRR; S1/S2 normal; no murmurs/rubs/gallops; pulses intact and symmetric at radial, DP, and PT Lungs: no acute respiratory distress; symmetrical chest wall expansion; clear breath sounds across all lung hodges w/o adventitious sounds; no wheezing ABD: Soft, NTP; BS present; no rebound/guarding; no distention MSK: no tics or fasciculations; no edema noted in the LEs b/l, nonerythematous; 5/5 tonguer strength bilaterally; patient demonstrates ability to wiggle toes and lift legs from the bed bilaterally without unilateral deficits Neuro: A&Ox3; normal mood and affect; fluent speech; no focal deficits appreciated; sensation intact and symmetric in the upper extremities, lower extremities, and face assessed via light touch Results & Data Results & Data Vital Signs (Past 12 Hours) Vital Signs Temp Pulse Pulse Resp BP BP Pulse Ox 01/07/25 14:44 86 19 118/86 91 01/07/25 13:45 94 H 01/07/25 13:26 36.7 C 105 H 17 139/88 97 O2 Del Method 01/07/25 14:44 Room Air 01/07/25 13:45 01/07/25 13:26 Room Air Laboratory Results Abnormal lab results 01/07/25 01/07/25 Range/Units 13:42 13:48 RDW Std Deviation 49.6 H (36.4-46.3) fL RDW Coeff of Gary 16.1 H (11.5-14.5) % POC Chloride 99 L (101-112) mmol/L POC BUN 4 L (7-18) mg/dl BUN 5 L (6-23) mg/dl BUN/Creatinine Ratio 7.0 L (10-20) Glucose 104 H (70-99(Fasting)) mg/dl POC Glucose (other) 104 H (70-99) mg/dl Lipase 8 L (11-82) U/L Diagnostic Findings Chest X-Ray 01/07/25 13:33 XR chest 1V portable CLINICAL HISTORY: Chest pain, nonspecific COMPARISON STUDY: 05/04/2022 FINDINGS: Heart size and pulmonary vasculature are normal. No effusion or consolidation. No pneumothorax. IMPRESSION: No acute findings. ACT 112: Negative or not required by law. Electronically signed by: Miguel Perez M.D. 01/07/2025 2:29 PM Head CTA 01/07/25 13:44 CT angio head wo/w CLINICAL HISTORY: Dizzy. COMPARISON STUDY: Head CT and CTA of the head May 04, 2022. TECHNIQUE: Unenhanced and arterial phase imaging of the head was performed. Intravenous injection of 115 cc of Optiray 320 IV was uneventful. Sagittal and coronal reformats were viewed as well as maximal intensity projections on an independent 3-D workstation. A dose lowering technique was utilized adhering to the principles of ALARA. FINDINGS: No acute intracranial hemorrhage, midline shift or mass effect is present. Ventricular system is stable. Basal cisterns are patent. There are no extra axial collections. Goodman-white differentiation is preserved. There are no findings to suggest acute dural sinus thrombosis or acute territorial infarct. The bilateral M1, M2, A1 and A2 segments are patent. No intracranial aneurysm, stenosis or dissection is present. Posterior circulation is also intact. IMPRESSION: 1. No acute intracranial findings. 2. No intracranial vessel occlusion. No intracranial aneurysm. ACT 112: Negative or not required by law. Electronically signed by: Nitin Orona M.D. 01/07/2025 2:31 PM Neck CTA 01/07/25 13:44 CT angio neck with con CLINICAL HISTORY: dizzy cant wlk. COMPARISON STUDY: 05/04/2022 TECHNIQUE: Following the IV administration of 150 of Optiray, CT angiogram of the neck was performed from the aortic arch to the skull base. Images are reviewed in the axial, sagittal, and coronal planes. 3-D MIPS images are created and assessed. IV contrast was administered without complication. All measurements were calculated based on NASCET criteria. A dose lowering technique was utilized adhering to the principles of ALARA. CT DOSE: 997.5 mGy.cm FINDINGS: There is spray and motion artifact inferiorly. The right vertebral artery is dominant and the left vertebral artery is diminutive beyond PICA, stable anatomic variant. No significant narrowing or occlusion seen at the common or internal carotid or vertebral arteries bilaterally. Stable tiny thyroid nodules. Stable diffuse degenerative changes at the cervical spine. IMPRESSION: No significant arterial narrowing or occlusion seen at the neck. ACT 112: Negative or not required by law. The above report was generated using voice recognition software. It may contain grammatical, syntax or spelling errors. Electronically signed by: Miguel Perez M.D. 01/07/2025 2:28 PM ECG Additional Comments: ECG revealed NSR at 89 bpm; QTc 486 Code Status & VTE Plan Code Status Full code VTE Prophylaxis Plan VTE Prophylaxis will be ordered: Yes PG Care Time/CCT Total # of Minutes Spent Total Time Spent with Patient: Total time spent is greater than 50% in coordination of care (as documented) at patient's floor/unit and/or counseling patient: Coding [place] [address] INT INP/OBS CARE 3/75MIN Patient Type Established History Comprehensive Exam Comprehensive Medical Decision Making High Complexity Diagnoses Ambulatory dysfunction R26.2 Recurrent falls R29.6 Dizziness R42 Diabetes E11.9 History of cervical spinal arthrodesis Z98.1
[2025-01-07] MEDS: clonazePAM 0.5 MG TAB PO STA (17:05)
[2025-01-07 17:08] LABS: Thyroid Stimulating Hormone 2.101 uIu/ml (0.300-4.500)
[2025-01-07] MEDS ORDERED: SUMAtriptan succinate 25 MG TAB PO PRN (18:20)
[2025-01-07] MEDS ORDERED: DEXTROSE 50% 50 ML SYRINGE IV PRN (18:20)
[2025-01-07] MEDS ORDERED: GLUCAGON FOR INJ 1 MG VIAL SQ PRN (18:20)
[2025-01-07] MEDS ORDERED: GLUCOSE 10 TAB/TUBE PO PRN (18:20)
[2025-01-07] MEDS ORDERED: GLUCOSE 40% GEL 15 GM TUBE PO PRN (18:20)
[2025-01-07] MEDS ORDERED: MECLIZINE 12.5 MG TAB PO PRN (18:20)
[2025-01-07] MEDS ORDERED: CARBOHYDRATES FOR HYPOGLYCEMIA PO PRN (18:20)
[2025-01-07] MEDS ORDERED: ALBUTEROL HFA 8 GM INHALER INH PRN (18:20)
[2025-01-07] MEDS ORDERED: hydrOXYzine HCl 25 MG TAB PO PRN (18:20)
--- NOTE | 2025-01-07 19:25 | Magnetic Resonance Report ---
EXAM: MR brain wo con CLINICAL HISTORY: Recurrent falls; right eye visual field deficits TECHNIQUE: MRI of the brain was performed without contrast with multiplanar sequences obtained. COMPARISON: CT brain dated 05/04/2022 was reviewed at time of reporting. FINDINGS: Brain Parenchyma: No evidence of acute infarction or hemorrhage. No areas of diffusion restriction Normal eugene-white matter differentiation. No mass lesions or focal cortical abnormalities were identified. Ventricles and Sulci: The ventricular system, cortical sulci and basal cisterns are prominent, consistent with senile changes. No evidence of hydrocephalus Orbits and Skull Base: Orbits and skull base structures are normal without evidence of abnormalities. partially empty sella , prominent Bing's cave and mildly increased CSF around the optic nerve may suggest idiopathic increased intracranial tension IMPRESSION: 1. No acute intracranial abnormality identified. 2. Senile brain changes. 3. partially empty sella, prominent Meckel's cave and mildly increased CSF around the optic nerve may suggest idiopathic increased intracranial tension ,clinical correlation is recommended. Electronically signed by Umair Interiano 01-07-2025 7:25 PM
[2025-01-07] MEDS: OXYMETAZOLINE 0.05% 30 ML BTL NAE SCH (20:19)
[2025-01-07] MEDS: INSULIN ASPART PER UNIT CHARGE SC SCH (20:20)
[2025-01-07] MEDS: ENOXAPARIN INJ 40 MG/0.4 ML SYR SQ SCH (20:21)
[2025-01-07] MEDS: OLANZapine 5 MG TABLET PO SCH (20:22)
[2025-01-07] MEDS: CeleBREX 200 MG CAP PO SCH (20:22)
[2025-01-07] MEDS: FLUTICASONE PROPIONATE NA SPR 16 GM BTL SCH (20:22)
[2025-01-07] MEDS: ASPIRIN 81 MG ECTAB PO STA (20:23)
[2025-01-07] MEDS: MIRTAZAPINE TAB 15 MG TAB PO SCH (20:24)
[2025-01-07] MEDS: PNEUMOCOCCAL VACCINE (PCV20) 20-VAL CONJ-DIP CRM/PF 0.5 ML SYR IM ONE (20:25)
[2025-01-08 05:58] LABS: Basophils # (auto) 0.04 K/uL (0.00-0.20); Basophils % (auto) 0.5 %; Eosinophils # (auto) 0.33 K/uL (0.00-0.50); Eosinophils % (auto) 4.3 %; Hematocrit (blood only) 38.6 % (37.0-47.0); Immature Granulocytes # (auto) 0.02 K/uL (0.01-0.20); Immature Granulocytes % (auto) 0.3 %; Lymphocytes # (auto) 2.94 K/uL (1.20-3.40); Lymphocytes % (auto) 38.5 %; Mean Corpuscular Hemoglobin 28.4 pg (25.0-34.0); Mean Corpuscular Hgb Conc 33.7 g/dL (32.0-36.0); Mean Corpuscular Volume 84.3 fL (80.0-100.0); Mean Platelet Volume 9.3 fL (9.4-12.4); Monocytes # (auto) 0.66 K/uL (0.11-0.59); Monocytes % (auto) 8.7 %; Neutrophils # (auto) 3.64 K/uL (1.40-6.50); Neutrophils % (auto) 47.7 %; Platelet Count 233 K/uL (130-400); RDW Coefficient of Variation 16.4 % (11.5-14.5); RDW Standard Deviation 50.8 fL (36.4-46.3); Red Blood Count 4.58 M/uL (4.20-5.40); White Blood Count 7.63 K/ul (4.8-10.8)
[2025-01-08 06:13] LABS: BUN Creatinine Ratio 7.7 (10-20); Calcium 8.7 mg/dl (8.6-10.3); Chol HDL Ratio 2.4 (0-5); Creatinine Clr Calc Pharmacy 93.9 ml/min; Magnesium 1.9 mg/dl (1.7-2.4); Potassium 3.6 mmol/L (3.5-5.1)
[2025-01-08 07:55] LABS: Estimated Average Glucose 117 mg/dl; Hemoglobin A1C 5.7 % (4.5-5.6)
[2025-01-08] MEDS: lamoTRIgine 100 MG TAB PO SCH (08:58)
[2025-01-08] MEDS: lamoTRIgine 25 MG TAB PO SCH (08:58)
[2025-01-08] MEDS: FLUoxetine HCL 20 MG CAP PO SCH ×2 (08:58)
[2025-01-08] MEDS: PANTOprazole 40 MG TAB PO SCH (08:59)
[2025-01-08] MEDS: MONTELUKAST SODIUM 10 MG TABLET PO PRN (08:59)
[2025-01-08] MEDS ORDERED: CLOPIDOGREL BISULFATE 75 MG TAB PO SCH (09:00)
[2025-01-08] MEDS ORDERED: clonazePAM 0.5 MG TAB PO PRN (09:00)
[2025-01-08] MEDS: ASPIRIN 81 MG ECTAB PO SCH (10:10)
--- NOTE | 2025-01-08 12:57 | Hospitalist Progress Note ---
Date of Service January 08, 2025 Assessment & Plan (1) Ambulatory dysfunction: (2) Recurrent falls: (3) Dizziness: (4) Dysphagia: (5) Diabetes: (6) History of cervical spinal arthrodesis: Plan Mrs. Lindquist is a 69-year-old female who presented on 01/07 for recurrent falls due to dizziness. This has been ongoing for several months, with an acute worsening over the past 3 weeks. #Dizziness/recurrent falls Patient denies h/o stroke or strokelike symptoms such as slurred speech, facial droop, word finding difficulty) However, she does endorse "weakness" in her RUE and RLE; unclear if this is due to history of prior neck/knee surgeries Head/neck CTA without acute findings Brain MRI without evidence of acute stroke Did touch base with neurology regarding "increased intracranial tension", but this is unlikely to be contributory to patient's balance issues; likely to be an incidental finding DDx includes polypharmacy, vertigo (refractory to meclizine use), and benzodiazepine usage (on Klonopin BID), among other etiologies In regard to polypharmacy, felt that many of her current medications could be contributing to dizziness/falls Hold oxybutynin, baclofen Reduce meclizine to 12.5 mg p.o. TID PRN Orthostatic vitals signs were negative on 01/08 Continue aspirin 81mg daily PT/OT evaluations appreciated, pending Fall precautions A.m. CBC, BMP, fasting lipid panel, A1c #Diabetes Last A1c at 6.5% on 08/22/2021 Hold metformin SSI; with target BSG range 110-140mg/dL, CF 50, carb ratio 15 T2DM diet BSG ACHS Adjust regimen as needed AM A1c #Dysphagia Patient reports she was "choking on her eggs" the morning of 01/08 She relates history of difficulty swallowing pills; H/o esophageal dilation in the past Speech therapy consult appreciate Easy to chew diet for now #Anxiety Continue hydroxyzine BID PRN Continue Klonopin for now (currently takes Klonopin BID) May decrease dosage to 0.25mg p.o. BID if refractory to above treatments #Depression Continue fluoxetine #Type II Bipolar Continue olanzapine, lamotrigine #H/o migraines Sumatriptan PRN Disposition: Continued stay on MedSur telemetry, patient might require rehab placement for ongoing falls VTE PPx: Lovenox 40 mg SQ q24h Admission and Anticipated Discharge Date Admission Date: January 08, 2025 Subjective Mrs. Lindquist reports that her lightheadedness is much better than yesterday. She slept on and off throughout the night. When she got up to work with physical therapy this morning, she does report feeling unsteady on her feet/"wobbly". She was in ambulating with a cane at that time. No falls. She is still feeling lightheaded whenever she gets up. Additionally, the patient reports that she choked on her scrambled eggs this morning, and is concerned that some of them "went down the wrong pipe". She has had difficulty swallowing pills in the past; she is amenable to seeing speech therapy while here. H/o esophageal dilation in the past. She also reports she is amenable to acute rehab, as she w as told that physical therapy recommended this due to lower extremity deconditioning/strength deficits. ROS: Patient endorses lightheadedness, feeling off balance when walking, morning cough, difficulty swallowing, and LE weakness bilaterally. Patient denies fever, chills, dizziness at rest, headache, tinnitus, chest pain, chest palpitations, SOB, abdominal pain, N/V/D, changes in urinary or bowel habits, or numbness or tingling in the arms or legs. Review of Systems Review of Systems: See HPI above Physical Exam Physical Exam: General: no acute distress; non-toxic appearing; well-nourished; cooperative HEENT: normocephalic, atraumatic; no scleral icterus; PERRLA w/ EOMs intact; vision and hearing grossly intact Neck: supple; no lymphadenopathy; trachea midline Skin: warm, dry without signs of tenting; no cyanosis; no rashes, bruising, lesions, or erythema noted CV: chest wall NTP; RRR; S1/S2 normal; no murmurs/rubs/gallops; pulses intact and symmetric at radial, DP, and PT Lungs: no acute respiratory distress; symmetrical chest wall expansion; clear breath sounds across all lung hodges w/o adventitious sounds; no wheezing ABD: Soft, NTP; BS present; no rebound/guarding; no distention MSK: no tics or fasciculations; no edema noted in the LEs b/l, nonerythematous Neuro: A&Ox3; normal mood and affect; fluent speech; no focal deficits; sensation grossly intact in the LEs b/l Results & Data Results & Data Vital Signs (Past 12 Hours) Vital Signs Temp Pulse Pulse Resp BP BP Pulse Ox 01/08/25 12:24 36.5 C 65 16 119/76 96 01/08/25 07:45 36.5 C 56 L 16 119/77 91 01/08/25 07:20 73 01/08/25 02:22 36.5 C 69 16 107/68 92 O2 Del Method 01/08/25 12:24 Room Air 01/08/25 07:45 Room Air 01/08/25 07:20 01/08/25 02:22 Room Air PG Care Time/CCT Total # of Minutes Spent Total Time Spent with Patient: Total time spent is greater than 50% in coordination of care (as documented) at patient's floor/unit and/or counseling patient: C[place] [address] SUB INP/OBS CARE 3/50MIN Patient Type Established History Comprehensive Exam Comprehensive Medical Decision Making High Complexity Diagnoses Ambulatory dysfunction R26.2 Recurrent falls R29.6 Dizziness R42 Dysphagia R13.10 Diabetes E11.9 History of cervical spinal arthrodesis Z98.1
[2025-01-09] MEDS: ACETAMINOPHEN 325 MG TAB PO PRN (08:04)
--- NOTE | 2025-01-09 11:59 | Hospitalist Progress Note ---
Date of Service January 09, 2025 Assessment & Plan (1) Ambulatory dysfunction: (2) Recurrent falls: (3) Dizziness: (4) Dysphagia: (5) Diabetes: (6) History of cervical spinal arthrodesis: Plan Mrs. Lindquist is a 69-year-old female who presented on 01/07 for recurrent falls due to dizziness. This has been ongoing for several months, with an acute worsening over the past 3 weeks. #Dizziness/recurrent falls Patient denies h/o stroke or strokelike symptoms such as slurred speech, facial droop, word finding difficulty) However, she does endorse "weakness" in her RUE and RLE; unclear if this is due to history of prior neck/knee surgeries Head/neck CTA without acute findings Brain MRI without evidence of acute stroke Did touch base with neurology regarding "increased intracranial tension", but this is unlikely to be contributory to patient's balance issues; likely to be an incidental finding DDx includes polypharmacy, vertigo (refractory to meclizine use), and benzodiazepine usage (on Klonopin BID), among other etiologies In regard to polypharmacy, felt that many of her current medications could be contributing to dizziness/falls Hold oxybutynin, baclofen Reduce meclizine to 12.5 mg p.o. TID PRN Orthostatic vitals signs were negative on 01/08 Patient does report she has been improving slowly (feeling less off balance) with the following medication changes on 01/09 Discontinue aspirin PT/OT evaluations appreciated If patient can meet listed goals, possible return home; otherwise, potential candidate for short-term rehab Fall precautions A.m. vitamin B12, folate #Diabetes A1c 5.7% on 01/08/2025 Hold metformin SSI; with target BSG range 110-140mg/dL, CF 50, carb ratio 15 T2DM diet BSG ACHS Adjust regimen as needed #Dysphagia Patient reports she was "choking on her eggs" the morning of 01/08 She relates history of difficulty swallowing pills; H/o esophageal dilation in the past Speech therapy consult appreciate Recommending easy to chew diet and barium swallow with combo video swallowing v. EGD H/o of EGD with esophageal dilation in 2017, as well as barium swallow many years ago Unable to obtain barium swallow on 01/09 GI consult appreciated N.p.o. at midnight for EGD on 01/10 #Anxiety Continue hydroxyzine BID PRN Continue Klonopin for now (currently takes Klonopin BID) May decrease dosage to 0.25mg p.o. BID if refractory to above treatments #Depression Continue fluoxetine #Type II Bipolar Continue olanzapine, lamotrigine #H/o migraines Sumatriptan PRN Disposition: Continued stay on MedSurg telemetry VTE PPx: Lovenox 40 mg SQ q24h Admission and Anticipated Discharge Date Admission Date: January 08, 2025 Subjective Mrs. Lindquist reports she is doing well this morning. She was up late last night until 12:30 PM, but then slept throughout the night. She was speaking to her daughter on the phone this morning, who was concerned that her dizziness might be to "not eating enough" due to Ozempic use. Patient reports she did have 2 bites of her eggs this morning as well as toast and oatmeal. She is still having difficulty swallowing, and reports she had a "cracker" get stuck during her speech eval with speech therapy this morning. There have been instances where she can ambulate independently with her cane, such as from her chair to the bed, but she reports that she has been calling the nurses for assistance when she is walking to the bathroom. She is happy to report that her "wobbliness" has improved since yesterday, and she was ambulating with physical therapy this morning, and doing much better. Additionally no episodes of vomiting yesterday or today, which she is happy about. ROS: Patient endorses night sweats last night (but reports this is chronic and ongoing for her), feeling off balance, and pain in her neck when she looks to the left. Patient denies fever, chills, headache, chest pain, chest palpitations, SOB, abdominal pain, N/V/D, or numbness or tingling in the arms or legs. Spoke to patient's daughter (Jossy) on the phone and provided updates regarding patient's hospitalization (labs, imaging, PT evals, and expected EGD on 01/10). Daughter was appreciative. Review of Systems Review of Systems: See HPI above Physical Exam Physical Exam: General: no acute distress; pleasant affect; non-toxic appearing; well- nourished; cooperative; SpO2 92% on RA HEENT: normocephalic, atraumatic; no scleral icterus; PERRLA; vision and hearing grossly intact Neck: supple; no lymphadenopathy; trachea midline Skin: warm, dry without signs of tenting; no cyanosis; no rashes, bruising, lesions, or erythema noted CV: chest wall NTP; RRR; S1/S2 normal; no murmurs/rubs/gallops; pulses intact and symmetric at radial, DP, and PT Lungs: no acute respiratory distress; symmetrical chest wall expansion; clear breath sounds across all lung hodges w/o adventitious sounds; no wheezing ABD: Soft; patient exhibits mild TTP in the LUQ and RUQ; BS present; no rebound/guarding; no distention MSK: no tics or fasciculations; no edema noted in the LEs b/l, nonerythematous Neuro: A&Ox3; normal mood and affect; fluent speech; no focal deficits; sensation intact and symmetric in the lower extremities bilaterally Results & Data Results & Data Vital Signs (Past 12 Hours) Vital Signs Temp Pulse Pulse Resp BP Pulse Ox O2 Del Method 01/09/25 11:34 36.5 C 75 20 122/87 92 Room Air 01/09/25 08:04 36.5 C 69 20 133/84 91 Room Air 01/09/25 07:00 75 01/09/25 03:46 36.5 C 64 18 116/73 90 Room Air PG Care Time/CCT Total # of Minutes Spent Total Time Spent with Patient: Total time spent is greater than 50% in coordination of care (as documented) at patient's floor/unit and/or counseling patient: C[place] [address] SUB INP/OBS CARE 3/50MIN Patient Type Established History Comprehensive Exam Comprehensive Medical Decision Making High Complexity Diagnoses Ambulatory dysfunction R26.2 Recurrent falls R29.6 Dizziness R42 Dysphagia R13.10 Diabetes E11.9 History of cervical spinal arthrodesis Z98.1
--- NOTE | 2025-01-09 12:37 | Gastrointestinal Consultation ---
Date of Consultation January 09, 2025 Assessment & Plan (1) Dysphagia: 69 year old female w/ history of bipolar 2 disorder, Lyme disease, diabetes, anxiety, asthma, R TKA, migraines, cervicalgia others below admitted w/ ambulatory dysfunction, recurrent falls - GI asked to evaluate for dysphagia. Last EGD in 2016 w/ abnormal esophageal motility and previous barium swallow showing mild jovi-pharyngeal dysphagia - Recommend barium swallow and video swallow today - NPO after midnight for EGD Monday I spent a total of 60 minutes on the date of service in review of patient's record, and previously obtained information in person and appropriate medical visit, discussion and education of plan, with patient and/or caregiver, placing orders for tests/referral/procedures as medically necessary and documentation of pertinent clinical information in patient's medical records for their visit today.Thank you for allowing us to participate in the care of this patient. Please call with any acute changes, questions or concerns. Please see addendum below with additional recommendation from my supervising physician. Supervising Physician Co-Signing Physician Notes I personally saw and examined the patient. I have reviewed the chart and agree with the documentation provided by the SENIOR MAJOR GIFTS OFFICER including discussion about the assessment, treatment and plan. Briefly, 69 year old female w/ history of bipolar 2 disorder, Lyme disease, diabetes, anxiety, asthma, R TKA, migraines, cervicalgia others below admitted w/ ambulatory dysfunction, recurrent falls - GI asked to evaluate for dysphagia. Last EGD in 2016 w/ abnormal esophageal motility and previous barium swallow showing mild jovi-pharyngeal dysphagia. At this point we will repeat the barium swallow as well as the video swallow and do an EGD tomorrow. The question is is this presbyesophagus versus diffuse esophageal spasm versus a variant of achalasia that is now presenting versus a mechanical problem like a stricture. Based on her symptoms which are chronic progressive, I suspect this is a motility problem. I suspect she has some oropharyngeal and esophageal dysphagia. I think she will need an esophageal manometry outpatient but will start the workup here. History of Present Illness Reason for Consultation: dysphagia Requesting Physician: Tommy Acuña MD Attending Physician: Tommy Acuña MD History of Present Illness 69 year old female w/ history of bipolar 2 disorder, Lyme disease, diabetes, anxiety, asthma, R TKA, migraines, cervicalgia others below admitted w/ ambulatory dysfunction, recurrent falls - GI asked to evaluate for dysphagia. Notes ongoing episodic symptoms since 2017. Suggests intermittent coughing after PO intake or other episodes where food feels stuck after initiating swallow. She suggests she is able to chew well and move bolus of food well from front of mouth to back of mouth. EGD 02/10/17: Abnormal esophageal motility. Dilated. Normal stomach. Normal examined duodenum. No specimens collected. EGD 05/31/12: Normal upper third of esophagus, middle third of esophagus and lower third of esophagus. Z-line irregular, 39 cm from the incisors. This was biopsied. It did not appear consistent with Barretts esophagus. Normal cardia, gastric fundus and gastric body. MIld antral gastritis. This was biopsied. Normal duodenal bulb. Normal 2nd part of the duodenum. This was biopsied. EGD 07/20/06: Normal examined duodenum. This was biopsied. Non-bleeding mild to moderate gastritis. Small hiatus hernia without ulcerations Normal esophagus. Gastroparesis, secondary to diabetes mellitus and/or medications induced. Hyperemic vocal cords most likely secondary to reflux disease. Colonoscopy 02/10/17: Diverticulosis in the entire examined colon. The distal rectum and anal verge are normal on retroflexion view. No specimens collected. Recommendation: - Repeat colonoscopy in 5 years for surveillance. Barium swallow 01/12/17: mild jovi-pharyngeal dysphagia full liquid diet with aspiration precautions Allergies Allergy/AdvReac Type Severity Reaction Status Date / Time fentanyl Allergy Severe RASH Verified 01/07/25 16:45 Cephalosporins Allergy Mild RASH TO Verified 01/07/25 16:45 KEFLEX grass pollen Allergy Mild Sneezing Verified 01/07/25 16:45 tree and shrub pollen Allergy Mild Sneezing Verified 01/07/25 16:45 methylprednisolone AdvReac Intermediate DIZZY;RAPID Verified 01/07/25 16:45 HEART RATE Home Medications Medication Instructions Recorded Confirmed Type metformin 500 mg tablet 500 mg PO BID 08/14/18 01/07/25 History montelukast 10 mg tablet 10 mg PO HS PRN Allergy Symptoms 08/14/18 01/07/25 History baclofen 10 mg tablet 10 mg PO Q8H PRN spasms #10 tabs 01/29/21 01/07/25 Rx fluoxetine 40 mg capsule 40 mg PO DAILY 08/29/21 01/07/25 History mirtazapine 15 mg tablet 15 mg PO HS 08/29/21 01/07/25 History meclizine 25 mg tablet 25 mg PO TID PRN dizziness #14 tabs 05/04/22 01/07/25 Rx celecoxib 200 mg capsule (Celebrex) 200 mg PO BID 12/29/23 01/07/25 History clonazepam 0.5 mg tablet 0.5 mg PO BID PRN Anxiety 12/29/23 01/07/25 History esomeprazole magnesium 40 mg 40 mg PO DAILY 12/29/23 01/07/25 History capsule,delayed release (Nexium) fluoxetine 20 mg capsule 20 mg PO DAILY 12/29/23 01/07/25 History hydroxyzine HCl 25 mg tablet 50 mg PO BID PRN Anxiety 12/29/23 01/07/25 History lamotrigine 200 mg tablet 200 mg PO DAILY 12/29/23 01/07/25 History oxybutynin chloride 10 mg 10 mg PO QPM 12/29/23 01/07/25 History tablet,extended release 24 hr sumatriptan succinate 25 mg tablet See Rx Instructions PO .COMPLEX 12/29/23 01/07/25 History olanzapine 5 mg tablet (Zyprexa) 5 mg PO QPM 01/01/24 01/07/25 History albuterol sulfate 90 mcg/actuation 2 puff inhalation DIRECTED PRN 01/07/25 01/07/25 History aerosol inhaler Shortness Of Breath Or Wheezing furosemide 20 mg tablet (Lasix) 20 mg PO DAILY PRN Fluid Retention 01/07/25 01/07/25 History lamotrigine 25 mg tablet 50 mg PO DAILY 01/07/25 01/07/25 History Patient History Medical History (Updated 01/08/25 @ 13:41 by Max England PA-C) PTSD (post-traumatic stress disorder) SANTY (generalized anxiety disorder) Pain in unspecified joint Localized swelling, mass and lump, lower limb, bilateral Other hypertrophic osteoarthropathy, multiple sites Pain in right hip Pain in right knee Pain in right shoulder History of falling Unspecified fracture of left lower leg, sequela Dizziness and giddiness Overactive bladder Generalized edema Otitis media, unspecified, right ear Depression Surgical History (Updated 12/29/23 @ 11:46 by Jaymie Dos Santos) Presence of unspecified artificial knee joint History of cholecystectomy History of shoulder surgery Left History of back surgery Family History Father Hypertension Sister Cancer Other Asthma Heart disease No family history of adverse response to anesthesia No family history of bleeding disorder Social History Smoking Status: Never smoker Second Hand Exposure: Yes; Hx Alcohol Use: No Hx Substance Use: No Preferred Language: Bengali Communication Ability: Effective Lump Room Supervisor Required: No Beliefs That Will Affect Care: None marital status: / Current Living Situation: Alone Current Living Situation Comment: in apartment Other Information That Helps Us Care for You: No Feels Safe at Home: Yes Safety Concerns: Feels Safe At This Time Assistive Devices: Cane and Walker Assistive Devices Comment: upper partial denture, glasses for driving and tv Review of Systems Review of Systems: All other findings negative except as noted in HPI. Physical Exam Constitutional: WD/WN, vitals as above Sitting upright in bed, lunch tray on traytable Respiratory: normal respiratory effort Cardiovascular: Rate/Rhythm: regular rate Gastrointestinal (Abdomen): normal bowel sounds, soft, nontender, no hepatosplenomegaly Skin: no rashes, warm and dry Results & Data Vital Signs (Past 12 Hours) Vital Signs Temp Pulse Pulse Resp BP Pulse Ox O2 Del Method 01/09/25 11:34 97.7 F 75 20 122/87 92 Room Air 01/09/25 08:04 97.7 F 69 20 133/84 91 Room Air 01/09/25 07:00 75 01/09/25 03:46 97.7 F 64 18 116/73 90 Room Air Laboratory Results 01/09/25 01/09/25 01/08/25 Range/Units 12:05 08:16 20:40 POC Glucose 86 104 H 97 (70-99) mg/dl 01/08/25 Range/Units 17:06 POC Glucose 95 (70-99) mg/dl PG Care Time/CCT Total # of Minutes Spent Total Time Spent with Patient: Total time spent is greater than 50% in coordination of care (as documented) at patient's floor/unit and/or counseling patient: Coding Level of Care Code 92465 INT INP/OBS CARE 2/55MIN Diagnoses Dysphagia R13.10
[2025-01-10 08:55] LABS: Hematocrit (blood only) 42.5 % (37.0-47.0); Hemoglobin 14.9 g/dl (12.0-16.0); Mean Corpuscular Hemoglobin 28.8 pg (25.0-34.0); Mean Corpuscular Hgb Conc 35.1 g/dL (32.0-36.0); Mean Corpuscular Volume 82.2 fL (80.0-100.0); Mean Platelet Volume 9.4 fL (9.4-12.4); Platelet Count 274 K/uL (130-400); RDW Coefficient of Variation 16.7 % (11.5-14.5); Red Blood Count 5.17 M/uL (4.20-5.40); White Blood Count 6.84 K/ul (4.8-10.8)
--- NOTE | 2025-01-10 09:26 | Gastroenterology Progress Note ---
Date of Service January 10, 2025 Assessment & Plan (1) Dysphagia: Plan: 69 year old female w/ history of bipolar 2 disorder, Lyme disease, diabetes, anxiety, asthma, R TKA, migraines, cervicalgia others below admitted w/ ambulatory dysfunction, recurrent falls - GI asked to evaluate for dysphagia. Last EGD in 2017 w/ abnormal esophageal motility and previous barium swallow showing mild jovi-pharyngeal dysphagia - Maintain NPO status for EGD today - Recommend barium swallow and video swallow at appt to be scheduled - Please ensure she has follow up with [facility] at discharge to continue her dysmotility evaluation We appreciate assistance in the management of any serological abnormality and corrections to include: hemoglobin >7, INR <2, platelets >50,000, potassium levels >3.5 but <5.3, and sodium levels within 5 points of the reference range prior to endoscopic evaluation. Admission and Anticipated Discharge Date Admission Date: January 08, 2025 Supervising Physician Co-Signing Physician Notes I personally saw and examined the patient. I have reviewed the chart and agree with the documentation provided by the GREEN END DEPARTMENT SUPERVISOR including discussion about the assessment, treatment and plan. Briefly, EGD today to eval for oropharyngeal and esophageal dysphagia and see if there is any component of mechanical obs truction versus or motility Subjective NPO for EGD today. No abd pain. No nausea/vomiting. Review of Systems Review of Systems: All other findings negative except as noted in HPI. Physical Exam Constitutional: WD/WN, vitals as above Respiratory: normal respiratory effort, lungs clear to auscultation Cardiovascular: Rate/Rhythm: regular rate and regular rhythm Gastrointestinal (Abdomen): normal bowel sounds, soft, nontender, no hepatosplenomegaly Skin: no rashes, warm and dry Results & Data Results & Data Vital Signs (Past 12 Hours) Vital Signs Temp Pulse Pulse Pulse Resp BP Pulse Ox 01/10/25 07:48 97.9 F 55 L 18 130/76 94 01/10/25 02:59 97.5 F L 56 L 18 124/85 92 01/09/25 22:33 97.9 F 76 18 128/78 91 01/09/25 22:05 72 01/09/25 21:39 O2 Del Method 01/10/25 07:48 Room Air 01/10/25 02:59 Room Air 01/09/25 22:33 Room Air 01/09/25 22:05 01/09/25 21:39 Room Air Laboratory Results 01/10/25 01/10/25 01/09/25 Range/Units 08:35 08:17 20:16 WBC 6.84 (4.8-10.8) K/ul RBC 5.17 (4.20-5.40) M/uL Hgb 14.9 (12.0-16.0) g/dl Hct 42.5 (37.0-47.0) % MCV 82.2 (80.0-100.0) fL MCH 28.8 (25.0-34.0) pg MCHC 35.1 (32.0-36.0) g/dL RDW Std Deviation 49.0 H (36.4-46.3) fL RDW Coeff of Gary 16.7 H (11.5-14.5) % Plt Count 274 (130-400) K/uL MPV 9.4 (9.4-12.4) fL POC Glucose 104 H 105 H (70-99) mg/dl Vitamin B12 Pending Folate Pending 01/09/25 01/09/25 Range/Units 17:25 12:05 WBC (4.8-10.8) K/ul RBC (4.20-5.40) M/uL Hgb (12.0-16.0) g/dl Hct (37.0-47.0) % MCV (80.0-100.0) fL MCH (25.0-34.0) pg MCHC (32.0-36.0) g/dL RDW Std Deviation (36.4-46.3) fL RDW Coeff of Gary (11.5-14.5) % Plt Count (130-400) K/uL MPV (9.4-12.4) fL POC Glucose 91 86 (70-99) mg/dl Vitamin B12 Folate PG Care Time/CCT Total # of Minutes Spent Total Time Spent with Patient: Total time spent is greater than 50% in coordination of care (as documented) at patient's floor/unit and/or counseling patient: Coding Level of Care Code None Diagnoses Dysphagia R13.10
[2025-01-10 09:37] LABS: Folate (Folic Acid),Ser orPlas 13.8 ng/ml (>5.38)
--- NOTE | 2025-01-10 10:00 | Anesthesiology Consultation ---
Date of Service January 10, 2025 Assessment & Plan Chart Review Chart Review: Acceptable Risk for Surgery ASA ASA2 Proposed Anesthesia Anesthesia Type: MAC Risk / Benefits Reviewed With: PT / POA / Parent / Guardian, Accepts Plan and Informed Consent Obtained History Surgery Operation Date: 01/10/25 17:00 Proposed Procedures p Esophagogastroduodenoscopy Lennox High MD Height/Weight Height: 5 ft 2 in Weight: 119.6 kg Allergies Allergy/AdvReac Type Severity Reaction Status Date / Time fentanyl Allergy Severe RASH Verified 01/07/25 16:45 Cephalosporins Allergy Mild RASH TO Verified 01/07/25 16:45 KEFLEX grass pollen Allergy Mild Sneezing Verified 01/07/25 16:45 tree and shrub pollen Allergy Mild Sneezing Verified 01/07/25 16:45 methylprednisolone AdvReac Intermediate DIZZY;RAPID Verified 01/07/25 16:45 HEART RATE Medications Home Medications Medication Instructions Recorded Confirmed Last Taken metformin 500 mg tablet 500 mg PO BID 08/14/18 01/07/25 01/07/25 08:00 montelukast 10 mg tablet 10 mg PO HS PRN Allergy Symptoms 08/14/18 01/07/25 04/02/19 baclofen 10 mg tablet 10 mg PO Q8H PRN spasms #10 tabs 01/29/21 01/07/25 Unknown fluoxetine 40 mg capsule 40 mg PO DAILY 08/29/21 01/07/25 01/07/25 mirtazapine 15 mg tablet 15 mg PO HS 08/29/21 01/07/25 Unknown meclizine 25 mg tablet 25 mg PO TID PRN dizziness #14 tabs 05/04/22 01/07/25 Unknown celecoxib 200 mg capsule (Celebrex) 200 mg PO BID 12/29/23 01/07/25 01/07/25 08:00 clonazepam 0.5 mg tablet 0.5 mg PO BID PRN Anxiety 12/29/23 01/07/25 01/06/25 esomeprazole magnesium 40 mg 40 mg PO DAILY 12/29/23 01/07/25 01/07/25 capsule,delayed release (Nexium) fluoxetine 20 mg capsule 20 mg PO DAILY 12/29/23 01/07/25 01/07/25 hydroxyzine HCl 25 mg tablet 50 mg PO BID PRN Anxiety 12/29/23 01/07/25 Unknown lamotrigine 200 mg tablet 200 mg PO DAILY 12/29/23 01/07/25 01/07/25 oxybutynin chloride 10 mg 10 mg PO QPM 12/29/23 01/07/25 01/06/25 tablet,extended release 24 hr sumatriptan succinate 25 mg tablet See Rx Instructions PO .COMPLEX 12/29/23 01/07/25 Unknown olanzapine 5 mg tablet (Zyprexa) 5 mg PO QPM 01/01/24 01/07/25 01/06/25 albuterol sulfate 90 mcg/actuation 2 puff inhalation DIRECTED PRN 01/07/25 01/07/25 Unknown aerosol inhaler Shortness Of Breath Or Wheezing furosemide 20 mg tablet (Lasix) 20 mg PO DAILY PRN Fluid Retention 01/07/25 01/07/25 Unknown lamotrigine 25 mg tablet 50 mg PO DAILY 01/07/25 01/07/25 01/07/25 Active Medications Generic Name Dose Route Start Last Admin Trade Name Freq PRN Reason Stop Dose Admin Acetaminophen 650 mg 01/07/25 18:20 01/09/25 08:04 Acetaminophen 325 Mg Tab PO 02/06/25 18:19 650 mg Q4H PRN Administration Pain or Fever Celecoxib 200 mg 01/07/25 21:00 01/09/25 20:45 Celebrex 200 Mg Cap PO 02/06/25 20:59 200 mg BID DECLAN Administration Enoxaparin Sodium 40 mg 01/07/25 21:00 01/09/25 20:44 Enoxaparin Inj 40 Mg/0.4 Ml Syr SQ 02/06/25 20:59 40 mg Q24H DECLAN Administration Fluoxetine HCl 20 mg 01/08/25 09:00 01/09/25 07:59 Fluoxetine Hcl 20 Mg Cap PO 02/07/25 08:59 20 mg DAILY DECLAN Administration Fluoxetine HCl 40 mg 01/08/25 09:00 01/09/25 07:59 Fluoxetine Hcl 20 Mg Cap PO 02/07/25 08:59 40 mg DAILY DECLAN Administration Fluticasone Propionate 1 sprays 01/07/25 21:00 01/09/25 20:44 Fluticasone Propionate Na Spr 16 Gm Btl NA 02/06/25 20:59 1 sprays BID DECLAN Administration Insulin Aspart 0 units 01/07/25 21:00 01/10/25 09:11 Insulin Aspart Per Unit Charge SC 02/06/25 20:59 Not Given ACHS DECLAN Lamotrigine 200 mg 01/08/25 09:00 01/09/25 08:00 Lamotrigine 100 Mg Tab PO 02/07/25 08:59 200 mg DAILY DECLAN Administration Protocol Lamotrigine 50 mg 01/08/25 09:00 01/09/25 07:59 Lamotrigine 25 Mg Tab PO 02/07/25 08:59 50 mg DAILY DECLAN Administration Protocol Mirtazapine 15 mg 01/07/25 21:00 01/09/25 20:44 Mirtazapine Tab 15 Mg Tab PO 02/06/25 20:59 15 mg HS DECLAN Administration Montelukast Sodium 10 mg 01/07/25 18:20 01/08/25 08:59 Montelukast Sodium 10 Mg Tablet PO 02/06/25 18:19 10 mg HS PRN Administration Allergy Symptoms Olanzapine 5 mg 01/07/25 21:00 01/09/25 20:45 Olanzapine 5 Mg Tablet PO 02/06/25 20:59 5 mg QPM DECLAN Administration Oxymetazoline HCl 1 sprays 01/07/25 21:00 01/09/25 20:44 Oxymetazoline 0.05% 30 Ml Btl LAUREN 01/11/25 09:05 1 sprays BID DECLAN Administration Pantoprazole Sodium 40 mg 01/08/25 09:00 01/09/25 07:59 Pantoprazole 40 Mg Tab PO 02/07/25 08:59 40 mg DAILY DECLAN Administration NPO Date Last Intake of Fluids: 01/09/25 Time Last Intake of Fluids: 22:30 Date Last Intake of Solids: 01/09/25 Time Last Intake of Solids: 18:00 Past Medical History Medical History (Updated 01/08/25 @ 13:41 by Max England PA-C) PTSD (post-traumatic stress disorder) SANTY (generalized anxiety disorder) Pain in unspecified joint Localized swelling, mass and lump, lower limb, bilateral Other hypertrophic osteoarthropathy, multiple sites Pain in right hip Pain in right knee Pain in right shoulder History of falling Unspecified fracture of left lower leg, sequela Dizziness and giddiness Overactive bladder Generalized edema Otitis media, unspecified, right ear Depression Exercise / Class Metabolic Activity III < 4 Walking/Shop/Light housework Past Family History Family History Father Hypertension Sister Cancer Other Asthma Heart disease No family history of adverse response to anesthesia No family history of bleeding disorder Past Surgical History Surgical History (Updated 12/29/23 @ 11:46 by Jaymie Dos Santos) Presence of unspecified artificial knee joint History of cholecystectomy History of shoulder surgery Left History of back surgery Past Anesthesia History No Hx of Anesthesia Complications and No Family Hx of Anesthesia Complications History of PONV No Hx of PONV and No Hx of Motion Sickness Social History Smoking Status: Never smoker Hx Alcohol Use: No Hx Substance Use: No substance use type: does not use Physical Exam Vital Signs Last Vital Signs Temp 37.0 C 01/10/25 09:37 Pulse 73 01/10/25 09:37 Resp 16 01/10/25 09:37 BP 137/89 01/10/25 09:37 Pulse Ox 96 01/10/25 09:37 O2 Del Method Room Air 01/10/25 09:37 Constitutional no acute distress ENMT Mouth: no TMJ abnormality Mallampati Class: II Neck normal visual inspection Respiratory normal respiratory effort; no respiratory distress Cardiovascular Rate/Rhythm: regular rate and regular rhythm Neurologic moves all extremities Psychiatric Orientation: alert and oriented x 3 Testing Laboratory Results 01/10/25 08:35 01/08/25 05:38 Hemoglobin A1c 5.7 % (4.5-5.6) H 01/08/25 05:38 01/10/25 08:17 POC Glucose 104 H Electrocardiogram Date: 01/07/25 Findings: + NSR @
--- NOTE | 2025-01-10 11:01 | GI REPORT ---
[facility] Patient: DEE MOBLEY : 1955 Sex at : Female Age: 69 Years Procedure: Upper GI endoscopy Date: 01/10/2025 Attending Physician: Jareth High MD Referring MD: Referred Self Indications: - Dysphagia Medications: - Monitored Anesthesia Care Complications: - No immediate complications. Estimated Blood Loss: - Estimated blood loss: None. Procedure: - Prior to the procedure, a History and Physical was performed, and patient medications and allergies were reviewed. The patient's tolerance of previous anesthesia was also reviewed. The risks and benefits of the procedure and the sedation options and risks were discussed with the patient. All questions were answered, and informed consent was obtained. Prior Anticoagulants: The patient has taken no anticoagulant or antiplatelet agents. ASA Grade Assessment: III - A patient with severe systemic disease. After reviewing the risks and benefits, the patient was deemed in satisfactory condition to undergo the procedure. - The egd scope was introduced through the mouth and advanced to the third part of the duodenum. - The upper GI endoscopy was accomplished without difficulty. - The patient tolerated the procedure well. Findings: - The Z-line was irregular and was found at the gastroesophageal junction. Biopsies were taken with a cold forceps for histology. Estimated blood loss was minimal. - The entire examined stomach was normal. - The examined duodenum was normal. Impression: - Z-line irregular, at the gastroesophageal junction. Biopsied. - Normal stomach. - Normal examined duodenum. Recommendation: - Discharge patient to home (ambulatory). - Resume previous diet. - Continue present medications. - Await pathology results. - Return to primary care physician as previously scheduled. - Patient has a contact number available for emergencies. The signs and symptoms of potential delayed complications were discussed with the patient. Return to normal activities tomorrow. Written discharge instructions were provided to the patient. - No intrinsic mechanical obstruction stricture or mass or severe esophagitis noted. The dysphagia is likely secondary to oropharyngeal and esophageal dysmotility. She should get an outpatient esophageal manometry study after getting her video swallow here. Procedure Code(s): - 76480, Esophagogastroduodenoscopy, flexible, transoral; with biopsy, single or multiple Diagnosis Code(s): - R13.10, Dysphagia, unspecified - K22.89, Other specified disease of esophagus CPT(R) - 2023 copyright [employer]. All Rights Reserved. The CPT codes, CCI edits and ICD codes generated are intended as suggestions and were generated based on input data. These codes are preliminary and upon naval aircrewman review may be revised to meet current compliance and payer requirements. The provider is responsible for the final determination of appropriate codes, and modifiers. Jareth High MD This document has been electronically signed. Note Initiated:01/10/2025 Note Completed:01/10/2025 11:00 AM \\[email or web address]\[email or web address]\Results\LIVE\[id number]
--- NOTE | 2025-01-10 11:09 | Anesthesiology Progress Note ---
Date of Service January 10, 2025 Anesthesia Post Procedure Vital Signs Vital Signs: Temp Pulse Pulse Pulse Resp BP BP 01/10/25 11:03 63 16 138/88 01/10/25 10:53 67 16 122/91 01/10/25 10:36 76 16 126/84 01/10/25 09:37 37.0 C 73 16 137/89 01/10/25 07:48 36.6 C 55 L 18 130/76 01/10/25 02:59 36.4 C L 56 L 18 124/85 01/09/25 22:33 36.6 C 76 18 128/78 01/09/25 22:05 72 01/09/25 21:39 01/09/25 19:44 36.5 C 77 18 127/80 01/09/25 15:47 36.8 C 82 20 111/81 01/09/25 15:00 89 01/09/25 11:34 36.5 C 75 20 122/87 Pulse Ox O2 Del Method 01/10/25 11:03 98 Room Air 01/10/25 10:53 93 Room Air 01/10/25 10:36 93 Room Air 01/10/25 09:37 96 Room Air 01/10/25 07:48 94 Room Air 01/10/25 02:59 92 Room Air 01/09/25 22:33 91 Room Air 01/09/25 22:05 01/09/25 21:39 Room Air 01/09/25 19:44 94 Room Air 01/09/25 15:47 94 Room Air 01/09/25 15:00 01/09/25 11:34 92 Room Air Transfer of Care Handoff Completed per policy Notes Mental Status: alert / awake / arousable Patient Amnestic to Procedure: Yes Nausea / Vomiting: adequately controlled Pain: adequately controlled Airway Patency, RR, SpO2: stable & adequate BP & HR: stable & adequate Hydration State: stable & adequate Anesthetic Complications: no major complications apparent and Pt Satisfied with anesthetic care
[2025-01-10] MEDS: LACTATED RINGER'S 1,000 ML IV SCH (12:20)
[2025-01-10] MEDS: PROPOFOL IV EMULSION 10 MG/ML 20 ML VIAL IV ONE (12:20)
[2025-01-10] MEDS: LIDOCAINE 2% 2 ML VIAL/AMP(20MG/ML) INFIL ONE (12:20)
--- NOTE | 2025-01-10 15:11 | Fluoroscopy Report ---
FL video swallow CLINICAL HISTORY: r/o aspiration. TECHNIQUE: Video fluoroscopic evaluation of swallowing was performed in the AP and lateral projection s by the speech pathology staff. The patient is fed nectar-thick and thin liquid barium, a barium coa toan wafer, and barium pudding. FLUOROSCOPY TIME: 1 minute 20 seconds. COMPARISON: None FINDINGS: No aspiration seen with any barium consistency. IMPRESSION: No aspiration seen. ACT 112: Negative or not required by law. Electronically signed by: Miguel Perez M.D. 01/10/2025 3:10 PM
--- NOTE | 2025-01-10 15:44 | Hospitalist Progress Note ---
Date of Service January 10, 2025 Assessment & Plan (1) Ambulatory dysfunction: (2) Recurrent falls: (3) Dizziness: (4) Dysphagia: (5) Diabetes: (6) History of cervical spinal arthrodesis: Plan Mrs. Lindquist is a 69-year-old female who presented on 01/07 for recurrent falls due to dizziness. This has been ongoing for several months, with an acute worsening over the past 3 weeks. #Dizziness/recurrent falls Patient denies h/o stroke or strokelike symptoms such as slurred speech, facial droop, word finding difficulty) However, she does endorse "weakness" in her RUE and RLE; unclear if this is due to history of prior neck/knee surgeries Head/neck CTA without acute findings Brain MRI without evidence of acute stroke Did touch base with neurology regarding "increased intracranial tension", but this is unlikely to be contributory to patient's balance issues; likely to be an incidental finding Vitamin B12 and folate levels WNL DDx includes polypharmacy, vertigo (refractory to meclizine use), and benzodiazepine usage (on Klonopin BID), among other etiologies In regard to polypharmacy, felt that many of her current medications could be contributing to dizziness/falls Hold oxybutynin, baclofen Reduce meclizine to 12.5 mg p.o. TID PRN Orthostatic vitals signs were negative on 01/08 Patient does report she has been improving slowly (feeling less off balance) with the following medication changes on 01/09 and 01/10 PT/OT evaluations appreciated If patient can meet listed goals, possible return home; otherwise, potential candidate for short-term rehab Fall precautions #Dysphagia Patient reports she was "choking on her eggs" the morning of 01/08 She relates history of difficulty swallowing pills; H/o esophageal dilation in the past Do feel that dysphagia + not eating while taking Ozempic may be contributing to patient's dizziness/recurrent falls GI consult appreciated EGD on 01/10 did not reveal mechanical obstruction stricture, mass, or severe esophagitis Suspected esophageal dysmotility Recommendation for outpatient esophageal manometry study and VFSS while inpatient Speech therapy consult appreciated Easy to chew diet VFSS on 01/10 was normal; again, suspected esophageal dysmotility and gastroparesis Recommended the patient see speech therapy via home health (or outpatient speech services) #Anxiety Continue hydroxyzine BID PRN Continue Klonopin for now (currently takes Klonopin BID) Given patient has decreased her Klonopin dosage over the years (from 4 tablets daily to 2 times daily), lower suspicion that this medication is the culprit #Diabetes A1c 5.7% on 01/08/2025 Hold metformin, Ozempic Patient reports she is lost 40 pounds over the past 3 to 4 months intentionally due to Ozempic SSI; with target BSG range 110-140mg/dL, CF 50, carb ratio 15 T2DM diet BSG ACHS Adjust regimen as needed #Depression Continue fluoxetine #Type II Bipolar Continue olanzapine, lamotrigine #H/o migraines Sumatriptan PRN Disposition: Continued stay on MedSurg telemetry VTE PPx: Lovenox 40 mg SQ q24h Admission and Anticipated Discharge Date Admission Date: January 08, 2025 Subjective Mrs. Lindquist is recovering well from her EGD this morning. She reports that the EGD went well, and she has no residual symptoms following the procedure. She also is happy to report that she has had no dizzy spells over the past 24 hours when working with PT. She ambulates to the bathroom independently with her cane, and does not feel off balance. No reported falls. She thinks that whenever medication changes were made, it is helping. She does have a rollator at home, and she reports that she is open to home health with PT or short-term rehab if needed. ROS: Patient endorses difficulty swallowing. Patient denies fever, chills, night sweats, dizzy spells, lightheadedness with movements, feeling off balance, chest pain, chest palpitations, SOB, cough, abdominal pain, N/V/D, change in urinary bowel habits, or numbness or tingling in the arms or legs. Review of Systems Review of Systems: See HPI above Physical Exam Physical Exam: General: no acute distress; pleasant affect; non-toxic appearing; well- nourished; cooperative; SpO2 95% on RA HEENT: normocephalic, atraumatic; no scleral icterus; PERRLA; vision and hearing grossly intact Neck: supple; no lymphadenopathy; trachea midline Skin: warm, dry without signs of tenting; no cyanosis; no rashes, bruising, le sions, or erythema noted CV: chest wall NTP; RRR; S1/S2 normal; no murmurs/rubs/gallops; pulses intact and symmetric at radial, DP, and PT Lungs: no acute respiratory distress; symmetrical chest wall expansion; clear breath sounds across all lung hodges w/o adventitious sounds; no wheezing ABD: Soft; patient exhibits mild TTP in the LUQ and RUQ; BS present; no rebound/guarding; no distention MSK: no tics or fasciculations; no edema noted in the LEs b/l, nonerythematous Neuro: A&Ox3; normal mood and affect; fluent speech; no focal deficits; sensation intact and symmetric in the lower extremities bilaterally Results & Data Results & Data Vital Signs (Past 12 Hours) Vital Signs Temp Pulse Pulse Pulse Resp BP BP 01/10/25 12:26 36.5 C 70 17 144/97 H 01/10/25 11:03 63 16 138/88 01/10/25 10:53 67 16 122/91 01/10/25 10:36 76 16 126/84 01/10/25 09:37 37.0 C 73 16 137/89 01/10/25 08:00 57 L 01/10/25 07:48 36.6 C 55 L 18 130/76 Pulse Ox O2 Del Method 01/10/25 12:26 95 Room Air 01/10/25 11:03 98 Room Air 01/10/25 10:53 93 Room Air 01/10/25 10:36 93 Room Air 01/10/25 09:37 96 Room Air 01/10/25 08:00 01/10/25 07:48 94 Room Air PG Care Time/CCT Total # of Minutes Spent Total Time Spent with Patient: Total time spent is greater than 50% in coordination of care (as documented) at patient's floor/unit and/or counseling patient: Coding [place] [address] SUB INP/OBS CARE 3/50MIN Patient Type Established History Comprehensive Exam Comprehensive Medical Decision Making High Complexity Diagnoses Ambulatory dysfunction R26.2 Recurrent falls R29.6 Dizziness R42 Dysphagia R13.10 Diabetes E11.9 History of cervical spinal arthrodesis Z98.1
--- NOTE | 2025-01-10 23:49 | Electrocardiogram Report ---
Test Reason : Blood Pressure : */* mmHG Vent. Rate : 89 BPM Atrial Rate : 89 BPM P-R Int : 164 ms QRS Dur : 78 ms QT Int : 382 ms P-R-T Axes : 49 20 64 degrees QTcB Int : 465 ms Normal sinus rhythm Possible Anterior infarct , age undetermined Nonspecific T wave abnormality Abnormal ECG When compared with ECG of 04-May-2022 12:46, No significant change Confirmed by Yeyo Mckeon ([id number]) on 01/10/2025 11:48:37 PM Referred By: REFERRED SELF Confirmed By: Yeyo Mckeon
[2025-01-11 11:50] VITALS: RESP 20; TEMP 97.7; O2SAT 94
--- NOTE | 2025-01-11 14:28 | Discharge Summary ---
Discharge Summary Date of Service January 11, 2025 Principal Dx & Hospital Course #1 = Principal Diagnosis (1) Ambulatory dysfunction: (2) Recurrent falls: (3) Dizziness: (4) Dysphagia: (5) Diabetes: (6) History of cervical spinal arthrodesis: Plan Mrs. Lindquist is a 69-year-old female who presented on 01/07 for recurrent falls due to dizziness. This has been ongoing for several months, with an acute worsening over the past 3 weeks. Day of discharge 01/11: Overall, patient is feeling much better than when she came in. She reports that she has slept well, and is eating food this morning without difficulty. No recurrence of lightheadedness with walking to the bathroom with her cane. She has also been ambulating independently throughout the halls. We did discuss acute rehab versus home health with the patient, and patient expresses a preference for home health at this time. She reports that she does have a four- wheel rollator at home, and is open to using it for the time being. Overall, she is eager to return home. She reports that her friend (Ronni) would be able to pick her up from the hospital later today if needed. ROS: Patient denies fever, chills, night sweats, dizziness/lightheadedness with walking, difficulty swallowing this morning, chest pain, chest palpitations, SOB, cough, CARLSON, abdominal pain, N/V/D, vomiting after meals, or numbness or tingling in the arms or legs. #Dizziness/recurrent falls/polypharmacy Patient denies h/o stroke or strokelike symptoms such as slurred speech, facial droop, word finding difficulty On admission, she does endorsed "weakness" in her RUE and RLE; unclear etiology, but suspect this is due to history of prior neck/knee surgeries Head/neck CTA without acute findings Brain MRI without evidence of acute stroke Did touch base with neurology regarding "increased intracranial tension", but this is unlikely to be contributory to patient's balance issues; likely to be an incidental finding Vitamin B12 and folate levels WNL Suspect most of her symptoms are due to polypharmacy, contributing to dizziness: Recommend discontinuing oxybutynin, baclofen Reduce meclizine to 12.5 mg p.o. TID PRN Reduce hydroxyzine to 25 mg p.o. BID PRN Orthostatic vitals signs were negative on 01/08 Patient has exhibited marked improvement in the hospital; feeling less off balance after medication changes PT/OT evaluations appreciated Patient has been up and ambulating independently on 01/11 Nada that she is safe to return home with home health Discussed with case management, who set up [facility] home health (nursing, PT/OT, and speech) who will all reach out within 48 hours of discharge Patient medically stable to return home with home health at this time #Dysphagia Patient reports she was "choking on her eggs" the morning of 01/08; reports that she has been "throwing up after meals" at home She relays history of difficulty swallowing pills; H/o prior esophageal dilation Do feel that dysphagia + not eating while taking Ozempic may also be contributing to patient's dizziness/recurrent falls GI consult appreciated EGD on 01/10 did not reveal mechanical obstruction stricture, mass, or severe esophagitis Suspected esophageal dysmotility Recommendation for esophageal manometry study Reached out to our case management team to have this set up outpatient Speech therapy consult appreciated Easy to chew diet VFSS on 01/10 was normal; again, suspected esophageal dysmotility and gastroparesis Recommended the patient see speech therapy via home health (or outpatient speech services) #Anxiety Continue hydroxyzine BID PRN Continue Klonopin for now (currently takes Klonopin BID) Given patient has decreased her Klonopin dosage over the years (from 4 ta blets daily to 2 times daily), lower suspicion that this medication is the culprit #Diabetes A1c 5.7% on 01/08/2025 Hold metformin, Ozempic Patient reports she is lost 40 pounds over the past 3 to 4 months intentionally due to Ozempic SSI discontinued in the hospital, as patient was euglycemic, with episodes of mild hypoglycemia (around 70) after receiving insulin T2DM diet BSG ACHS Adjust regimen as needed #Depression Continue fluoxetine #Type II Bipolar Continue olanzapine, lamotrigine #H/o migraines Sumatriptan PRN Disposition: Discharge home with home health (PT/OT, nursing, and speech therapy eval) Admission HPI Per Admitting Provider Mrs. Lindquist is a 69-year-old female with PMH of bipolar 2 disorder, Lyme disease, diabetes, anxiety, asthma, R TKA, migraines, cervicalgia, and vertigo. She presented on 01/07 for recurrent falls due to dizziness over the past several months. However, patient reports that has been getting worse over the past 3 weeks, and yesterday was particularly bad to the point where it started to scare her. Patient lives by herself. She reports that she can follow up to 3-4 times per day. Normally, whenever she starts to feel dizzy, she tries to "throw herself" onto her nearest furniture, however yesterday she fell and hit the floor. No head strike. No LOC. Not on blood thinners. She was unable to get up on her own, and had to call the ambulance to help pick her back up. She also had to call an ambulance the week prior due to a fall. Patient has been taking meclizine 25 mg 3 times daily for her symptoms, but this has not been helping. Patient takes Klonipin twice daily for her anxiety (once at 8am and once at night), and she has been on this medication for many years. She did not take any meclizine today, but did take her regular morning medicine today. No recent change in medications. Her most recent change was that she was started on Ozempic 3 to 4 months ago; she has lost 40 pounds since this time (intentional). Patient manages her own medicine at home. Patient ambulates with a walker and a cane at baseline; cane while in the apartment, walker outside the apartment. She lives in an apartment building on the fourth floor, but does have an elevator. She does not need to take any steps. She does have a history of 2 knee replacements. She denies smoking, tobacco use, or any recent alcohol use. No prior history of stroke to her knowledge. She denies slurred speech, facial droop, or word finding difficulty. However, she does note that her right upper extremity and right lower extremity become "weak" at times. Additionally, she h as had blurry vision over the past several months. She saw an eye doctor a couple weeks ago, and was told she would need to have another laser eye surgery; she was also told she had "scarring" in her right eye leading to some vision loss when looking right. Patient wears glasses at baseline. No tinnitus. She reports that she drinks lots of water. Patient's vitals are stable time admission. ED course: NSS 1000 mL IV ROS: Patient endorses sweating episodes during the day, headache (resolved; migraine x 4 days last week; attributes to h/o two discs taken out of the back of her neck), blurry vision (ongoing), heartburn/reflux, chest palpitations (attributes to intermittent anxiety), productive cough (ongoing for months; yellow sputum production), nausea, vomiting (yesterday morning; attributes to cough), RUE/RLE weakness, neuropathy in the feet from diabetes, and restless leg syndrome. Patient denies fever, chills, slurred speech, facial droop, confusion, word finding difficulty, photophobia, tinnitus, chest pain, pleuritic CP, SOB, abdominal pain, diarrhea, burning with urination, and changes in urinary/bowel habits. Admission Exam Per Admitting Provider General: no acute distress; pleasant affect; friend at bedside; non-toxic appearing; cooperative; SpO2 98% on RA HEENT: normocephalic, atraumatic; no scleral icterus; PERRLA w/ EOMs intact, however patient reports that she has "difficulty" with the right field of vision; no nystagmus appreciated; hearing intact; patient demonstrates ability t o smile, frown, and lift eyebrows without unilateral deficits; patient demonstrates ability to protrude and wiggle tongue bilaterally without unilateral deficits; Neck: supple; no lymphadenopathy; trachea midline; patient demonstrates ability to shrug shoulders against resistance without unilateral deficits, however, she does report pain when she looks to the left (no dizziness) Skin: warm, dry without signs of tenting; no cyanosis; no rashes, bruising, lesions, or erythema noted CV: chest wall NTP; RRR; S1/S2 normal; no murmurs/rubs/gallops; pulses intact and symmetric at radial, DP, and PT Lungs: no acute respiratory distress; symmetrical chest wall expansion; clear breath sounds across all lung hodges w/o adventitious sounds; no wheezing ABD: Soft, NTP; BS present; no rebound/guarding; no distention MSK: no tics or fasciculations; no edema noted in the LEs b/l, nonerythematous; 5/5 fashion consultant selling strength bilaterally; patient demonstrates ability to wiggle toes and lift legs from the bed bilaterally without unilateral deficits Neuro: A&Ox3; normal mood and affect; fluent speech; no focal deficits appreciated; sensation intact and symmetric in the upper extremities, lower extremities, and face assessed via light touch Discharge Exam General: no acute distress; pleasant affect; non-toxic appearing; well- nourished; cooperative; SpO2 94% on RA HEENT: normocephalic, atraumatic; no scleral icterus; PERRLA; vision and hearing grossly intact Neck: supple; no lymphadenopathy; trachea midline Skin: warm, dry without signs of tenting; no cyanosis; no rashes, bruising, lesions, or erythema noted CV: chest wall NTP; RRR; S1/S2 normal; no murmurs/rubs/gallops; pulses intact and symmetric at radial, DP, and PT Lungs: no acute respiratory distress; symmetrical chest wall expansion; clear breath sounds across all lung hodges w/o adventitious sounds; no wheezing ABD: Soft; patient exhibits mild TTP in the LUQ and RUQ; BS present; no rebou nd/guarding; no distention MSK: no tics or fasciculations; no edema noted in the LEs b/l, nonerythematous Neuro: A&Ox3; normal mood and affect; fluent speech; no focal deficits; sensation intact and symmetric in the lower extremities bilaterally Discharge Plan Discharge Items Patient Disposition: Home - Home Health Services Reason For Visit: DIZZINESS, RECURRENT FALLS Discharge Diagnosis: Recurrent falls/dizziness due to polypharmacy and poor p.o. intake; esophageal dysmotility Condition on Discharge: Fair Activity: As commented below Activity Comment: Gradually increase activity with 4-wheel rollator as tolerated Non-emergency contact: Primary Care Provider Call non-emergency contact if: you have any medication questions, your symptoms worsen, your pain is concerning for you and you have a fever Follow-up/Referrals: Shanelle Del Real CRNP [Primary Care Provider] - Diet: Carb Consistent or DM2 Diet Texture: Easy to Chew Addtl Attending Provider Instructions: You were hospitalized at [facility] from 01/07 - 01/11 for recurrent falls due to lightheadedness/dizziness with walking. A brain MRI was obtained in the emergency department, which did not reveal any acute abnormalities; no cerebellar strokes seen on imaging. It is thus believed that the cause of these falls was multifactorial: (1) many of the medications you are currently taking can contribute to dehydration, dizziness, orthostatic hypotension, and falls. For this reason, the following medications were discontinued - oxybutynin for bladder spasms, and baclofen for muscle spasms. Hydroxyzine was held while you are in the hospital. Also, your meclizine was decreased from 25 mg to 12.5 mg 3 times daily as needed for dizziness; while this medication is good for controlling vertigo, taking scheduled doses 3 times daily (as you were prior to hospitalization) may have been contributing to something called "orthostasis", which can make you feel lightheaded when standing. (2) While Ozempic and weight loss might not be the cause of your dizziness, decreased nutrition and smaller food portions/intake may have been contributing. It is important to follow-up with speech therapy regarding your difficulty swallowing. While at [facility], you were also seen by our gastroenterology team who performed an EGD. We did not see any obstructions or strictures on this test, and thus your difficulty swallowing is likely due to something called "esophageal dysmotility". We have asked case management to set up an outpatient procedure c alled an esophageal manometry test. This test measures the pressure of different muscles in your esophagus with swallowing. Moving forward, it is important to eat soft/easy to chew meals at home pending further workup. Both our Physical and Occupational Therapy teams recommended home health for follow-up. Our case management team has reached out to [facility] health, and set you up with nursing, PT/OT, and speech therapy follow-up at home. You will be seen by [facility] home health within 48 hours of discharge. The following medications have been changed: Oxybutynin -discontinued Baclofen -discontinued Meclizine -dose reduced from 25 mg to 12.5 mg 3 times per day (only take as needed for dizziness) Hydroxyzine -dose reduced from 50 mg twice daily to 25 mg at night (only take as needed for anxiety) Please follow-up with your PCP regarding clonazepam (Klonopin) usage, as this also may be contributory. If you develop any new or worsening symptoms, such as fever, chills, chest pain, shortness of breath with walking, intractable nausea and vomiting, intractable dizziness, recurrent falls, or if you have any new concerns please return to the emergency department immediately. It was a pleasure taking care of you. Please reach out with any questions or concerns. Sincerely, Max England PA-C Pending Studies at Discharge: No Stand-Alone Forms: [facility] Medications and DC Order Prescriptions: New meclizine 12.5 mg Tablet 12.5 mg PO TID PRN (Reason: dizziness) Qty: 60 0RF Rx Instructions: Take 1 tablet by mouth up to 3 times per day as needed for dizziness hydroxyzine HCl 25 mg tablet 25 mg PO HS PRN (Reason: anxiety) Qty: 14 0RF Rx Instructions: Take 1 tablet at nighttime as needed for anxiety Continued sumatriptan succinate 25 mg tablet See Rx Instructions PO .COMPLEX Rx Instructions: take 1 tab at onset of headache; if no relief may repeat 1 tab after at least 2 hrs; max = 4 tabs/24 hr PO esomeprazole magnesium [Nexium] 40 mg capsule,delayed release(DR/EC) 40 mg PO DAILY fluoxetine 20 mg capsule 20 mg PO DAILY Rx Instructions: TOTAL DOSE 60 MG--TAKES WITH 40 MG CAP. celecoxib [Celebrex] 200 mg capsule 200 mg PO BID olanzapine [Zyprexa] 5 mg tablet 5 mg PO QPM metformin 500 mg tablet 500 mg PO BID montelukast 10 mg tablet 10 mg PO HS PRN (Reason: Allergy Symptoms) clonazepam 0.5 mg tablet 0.5 mg PO BID PRN (Reason: Anxiety) Rx Instructions: PER PT "TAKE EVERY DAY BID". mirtazapine 15 mg tablet 15 mg PO HS Rx Instructions: UNABLE TO VERIFY THIS MED, NOT ON EXT MED HX. fluoxetine 40 mg capsule 40 mg PO DAILY Rx Instructions: TOTAL DOSE 60 MG--TAKES WITH 20 MG CAP. lamotrigine 200 mg tablet 200 mg PO DAILY Rx Instructions: TOTAL DOSE 250 MG--TAKES WITH 2-25 MG TABS. lamotrigine 25 mg tablet 50 mg PO DAILY Rx Instructions: TOTAL DOSE 250 MG--TAKES WITH 200 MG TAB. furosemide [Lasix] 20 mg Tablet 20 mg PO DAILY PRN (Reason: Fluid Retention) albuterol sulfate 90 mcg/actuation Hfa Aerosol Inhaler 2 puff INHALATION DIRECTED PRN (Reason: Shortness Of Breath Or Wheezing) Discontinued oxybutynin chloride 10 mg tablet extended release 24hr 10 mg PO QPM hydroxyzine HCl 25 mg tablet 50 mg PO BID PRN (Reason: Anxiety) Rx Instructions: PER PT "USUALLY TAKE AT HS". meclizine 25 mg tablet 25 mg PO TID PRN (Reason: dizziness) Qty: 14 0RF baclofen 10 mg tablet 10 mg PO Q8H PRN (Reason: spasms) Qty: 10 0RF Krames/Other Patient Handouts: Dysphagia Diet- Managing Foods, Preventing Falls in the Home Admission Data Admit Date/Time: 01/08/25 12:42 Attending Provider: Tommy Acuña Admit Provider: Alice Dale Primary Care Provider: Shanelle Del Real Other Providers: Alice Dale; Jareth High; [facility] Stay Data Consultations 01/07/25 15:13 ED Decision to Admit Stat 01/09/25 12:29 Consult Gastroenterology Routine Procedures Performed Operation Date: 01/10/25 17:00 Actual Procedures p EGD Biopsy Cytology - Jareth High MD Diagnostic Imagining Performed 01/07/25 13:44 CT angio head wo/w Stat CT angio neck with con Stat 01/07/25 16:34 MRI Brain [MR brain wo con] Urgent 01/10/25 13:30 FL video swallow Routine Pending Results Patient Have Any Pending Studies at Discharge: No Discharge Instructions Given to Patient (Per Discharging Provider) You were hospitalized at [facility] from 01/07 - 01/11 for recurrent falls due to lightheadedness/dizziness with walking. A brain MRI was obtained in the emergency department, which did not reveal any acute abnormalities; no cerebellar strokes seen on imaging. It is thus believed that the cause of these falls was multifactorial: (1) many of the medications you are currently taking can contribute to dehydration, dizziness, orthostatic hypotension, and falls. For this reason, the following medications were discontinued - oxybutynin for bladder spasms, and baclofen for muscle spasms. Hydroxyzine was held while you are in the hospital. Also, your meclizine was decreased from 25 mg to 12.5 mg 3 times daily as needed for dizziness; while this medication is good for controlling vertigo, taking scheduled doses 3 times daily (as you were prior to hospitalization) may have been contributing to something called "orthostasis", which can make you feel lightheaded when standing. (2) While Ozempic and weight loss might not be the cause of your dizziness, decreased nutrition and smaller food portions/intake may have been contributing. It is important to follow-up with speech therapy regarding your difficulty swallowing. While at [facility], you were also seen by our gastroenterology team who performed an EGD. We did not see any obstructions or strictures on this test, and thus your difficulty swallowing is likely due to something called "esophageal dysmotility". We have asked case management to set up an outpatient procedure called an esophageal manometry test. This test measures the pressure of different muscles in your esophagus with swallowing. Moving forward, it is important to eat soft/easy to chew meals at home pending further workup. Both our Physical and Occupational Therapy teams recommended home health for follow-up. Our case management team has reached out to [facility] home health, and set you up with nursing, PT/OT, and speech therapy follow-up at home. You will be seen by [facility] home health within 48 hours of discharge. The following medications have been changed: Oxybutynin -discontinued Baclofen -discontinued Meclizine -dose reduced from 25 mg to 12.5 mg 3 times per day (only take as needed for dizziness) Hydroxyzine -dose reduced from 50 mg twice daily to 25 mg at night (only take as needed for anxiety) Please follow-up with your PCP regarding clonazepam (Klonopin) usage, as this also may be contributory. If you develop any new or worsening symptoms, such as fever, chills, chest pain, shortness of breath with walking, intractable nausea and vomiting, intractable dizziness, recurrent falls, or if you have any new concerns please return to the emergency department immediately. It was a pleasure taking care of you. Please reach out with any questions or concerns. Sincerely, Max England PA-C Total Time Total Time Spent Total Time Spent (In Minutes): 40 [place] [address] INP/OBS DISCH >30 MIN Patient Type Established History Comprehensive Exam Comprehensive Medical Decision Making High Complexity Diagnoses Ambulatory dysfunction R26.2 Recurrent falls R29.6 Dizziness R42 Dysphagia R13.10 Diabetes E11.9 History of cervical spinal arthrodesis Z98.1
[2025-01-11 15:18] VITALS: BP 112/72; PULSE 70
== END 2025-01-11 16:02 | disposition home health service (06) | DRG 149 ==
LOC: ED 13:25 → 2N 13:25 → SUATTDRO 17:03 → 2N 17:27 → SUATTDRO 01-08 12:42